=== PATIENT | male | born 1960 | race Caucasian/White ===

== ENCOUNTER 2022-05-18 10:50 | Inpatient (IN) | payer OTHER ==
[2022-05-18 13:40] VITALS: BMI 23.1
[2022-05-18] MEDS ORDERED: LOPERAMIDE HCL 2 MG CAPSULE PO PRN (14:24)
[2022-05-18] MEDS ORDERED: IBUPROFEN 600 MG TABLET (FP) PO PRN (14:24)
[2022-05-18] MEDS ORDERED: ACETAMINOPHEN 325 MG TABLET (FP) PO PRN ×2 (14:24)
[2022-05-18] MEDS ORDERED: BISMUTH SUBSALICYLATE 262 MG/15 ML BTL PO PRN (14:24)
[2022-05-18] MEDS ORDERED: IBUPROFEN 400 MG TABLET (FP) PO PRN (14:24)
[2022-05-18] MEDS ORDERED: MAGNESIUM HYDROX 2400MG/30ML ORAL SUSPENSION 30 ML CUP PO PRN (14:24)
[2022-05-18] MEDS ORDERED: METHOCARBAMOL 500 MG TABLET PO PRN (14:24)
[2022-05-18] MEDS ORDERED: MAG HYDROX/AL HYDROX/SIMETH 30 ML UNIT-DOSE CUP PO PRN (14:24)
[2022-05-18] MEDS ORDERED: DICYCLOMINE HCL 10 MG CAPSULE PO PRN (14:24)
[2022-05-18] MEDS ORDERED: chlordiazePOXIDE HCL 25 MG CAPSULE PO PRN (14:24)
[2022-05-18] MEDS ORDERED: ONDANSETRON *ODT* 4 MG TABLET SL PRN (14:24)
[2022-05-18] MEDS ORDERED: NICOTINE POLACRILEX 2 MG GUM BUC PRN (14:24)
[2022-05-18] MEDS ORDERED: MAGNESIUM CITRATE 300 ML BOTTLE PO PRN (14:24)
[2022-05-18] MEDS ORDERED: BENZOCAINE/MENTHOL (CHLORASEPTIC ) LOZENGE MM PRN (14:24)
[2022-05-18] MEDS: hydrOXYzine PAMOATE 25 MG CAPSULE (FP) PO SCH ×2 (18:19→22:28)
[2022-05-18] MEDS: THIAMINE HCL 100 MG TABLET (FP) PO SCH (22:28)
[2022-05-18] MEDS: MELATONIN 5 MG TABLETS PO SCH (22:28)
[2022-05-18] MEDS: chlordiazePOXIDE HCL 25 MG CAPSULE PO SCH (22:28)
[2022-05-18] MEDS: METOPROLOL TARTRATE 25 MG TABLET (FP) PO SCH (22:28)
[2022-05-18] MEDS: ROSUVASTATIN CA 20 MG TABLET PO SCH (22:28)
[2022-05-19] MEDS: hydrOXYzine PAMOATE 25 MG CAPSULE (FP) PO SCH ×5 (05:04→22:46)
[2022-05-19] MEDS: chlordiazePOXIDE HCL 25 MG CAPSULE PO SCH ×4 (05:04→22:46)
[2022-05-19] MEDS: METOPROLOL TARTRATE 25 MG TABLET (FP) PO SCH ×2 (10:15→22:46)
[2022-05-19] MEDS: ASPIRIN 81 MG CHEWABLE TABLETS PO SCH (10:15)
[2022-05-19] MEDS: PRENATAL VITAMINS W/ FOLIC ACID TABLET (FP) PO SCH (10:15)
[2022-05-19] MEDS: MELATONIN 5 MG TABLETS PO SCH (22:45)
[2022-05-19] MEDS: THIAMINE HCL 100 MG TABLET (FP) PO SCH (22:46)
[2022-05-19] MEDS: ROSUVASTATIN CA 20 MG TABLET PO SCH (22:46)
[2022-05-20] MEDS: hydrOXYzine PAMOATE 25 MG CAPSULE (FP) PO SCH ×3 (06:07→13:39)
[2022-05-20] MEDS: chlordiazePOXIDE HCL 25 MG CAPSULE PO SCH ×2 (06:07→10:35)
[2022-05-20] MEDS: PRENATAL VITAMINS W/ FOLIC ACID TABLET (FP) PO SCH (10:33)
[2022-05-20] MEDS: ASPIRIN 81 MG CHEWABLE TABLETS PO SCH (10:33)
[2022-05-20] MEDS: METOPROLOL TARTRATE 25 MG TABLET (FP) PO SCH (10:34)
[2022-05-20 11:12] LABS: HEMATOCRIT 36.3 % (35.4-49); HEMOGLOBIN 12.4 GM/dL (11.7-16.9); MCH 34.4 pg (25.7-33.7); MCHC 34.2 g/dl (32.0-35.9); MEAN CELL VOLUME 100.5 fl (80-96); MEAN PLT VOLUME 9.5 fl (7.5-11.1); PLATELET COUNT 128 10^3/uL (134-434); RBC 3.62 M/mm3 (4.00-5.60); RDW 13.9 % (11.9-15.9); WHITE BLOOD COUNT 4.5 K/mm3 (4.0-10.0)
[2022-05-20 11:52] LABS: CALCIUM 9.4 mg/dL (8.5-10.1)
[2022-05-20 11:53] LABS: ALBUMIN 3.5 g/dl (3.4-5.0); BLOOD UREA NITROGEN 13.6 mg/dL (7-18)
[2022-05-20 11:57] LABS: BILIRUBIN,TOTAL 0.8 mg/dL (0.2-1); CREATININE 0.8 mg/dL (0.55-1.3)
[2022-05-20 11:58] LABS: TOT PROT 6.7 g/dl (6.4-8.2)
[2022-05-20] MEDS ORDERED: POTASSIUM CHLORIDE ORAL LIQUID 20 MEQ/15 ML PO ONE (14:00)
[2022-05-20 17:13] VITALS: BP 114/70; PULSE 57; TEMP 98
[2022-05-20] MEDS ORDERED: POTASSIUM CHLORIDE ORAL LIQUID 20 MEQ/15 ML PO SCH (22:00)
[2022-05-21] MEDS ORDERED: chlordiazePOXIDE HCL 10 MG CAPSULE PO PRN
[2022-05-21] MEDS ORDERED: chlordiazePOXIDE HCL 10 MG CAPSULE PO SCH (05:00)
[2022-05-22] MEDS ORDERED: chlordiazePOXIDE HCL 10 MG CAPSULE PO SCH (05:00)
[2022-05-23] MEDS ORDERED: chlordiazePOXIDE HCL 10 MG CAPSULE PO ONE (05:00)
== END 2022-05-20 18:30 | disposition left against medical advice (07) | DRG 894 ==
LOC: YASAS 10:50 → Y3N 14:19
PROVIDERS: ADMIT Allergy & Immunology; ATTEND Surgery
PROC: HZ2ZZZZ Detoxification Services for Substance Abuse Treatment (ICD-10-PCS; principal; 2022-05-18)
DX: F10.230 Alcohol dependence with withdrawal, uncomplicated (principal); F12.10 Cannabis abuse, uncomplicated; F17.210 Nicotine dependence, cigarettes, uncomplicated; E87.6 Hypokalemia; E78.5 Hyperlipidemia, unspecified; I10 Essential (primary) hypertension; Z86.79 Personal history of other diseases of the circulatory system; Z86.73 Personal history of transient ischemic attack (TIA), and cerebral infarction without residual deficits; Z95.0 Presence of cardiac pacemaker; Z88.5 Allergy status to narcotic agent
CPT/HCPCS: 36415; 80053; 85027; 86780; C9803-CS; U0003; U0005

== ENCOUNTER 2022-07-20 15:30 | Inpatient (IN) | payer OTHER ==
[2022-07-20 18:17] VITALS: RESP 18; BMI 21.9
[2022-07-20] MEDS ORDERED: ONDANSETRON *ODT* 4 MG TABLET SL PRN (20:20)
[2022-07-20] MEDS ORDERED: P-EPHED 60MG/TRIPROLIDI 2.5MG TABLET PO PRN (20:20)
[2022-07-20] MEDS ORDERED: ACETAMINOPHEN 325 MG TABLET (FP) PO PRN ×2 (20:20)
[2022-07-20] MEDS ORDERED: DICYCLOMINE HCL 10 MG CAPSULE PO PRN (20:20)
[2022-07-20] MEDS ORDERED: LOPERAMIDE HCL 2 MG CAPSULE PO PRN (20:20)
[2022-07-20] MEDS ORDERED: IBUPROFEN 400 MG TABLET (FP) PO PRN (20:20)
[2022-07-20] MEDS ORDERED: MAG HYDROX/AL HYDROX/SIMETH 30 ML UNIT-DOSE CUP PO PRN (20:20)
[2022-07-20] MEDS ORDERED: IBUPROFEN 600 MG TABLET (FP) PO PRN (20:20)
[2022-07-20] MEDS ORDERED: MELATONIN 5 MG TABLETS PO PRN (20:20)
[2022-07-20] MEDS ORDERED: BISMUTH SUBSALICYLATE 524 MG/30 ML PO PRN (20:20)
[2022-07-20] MEDS ORDERED: MAGNESIUM HYDROX 2400MG/30ML ORAL SUSPENSION 30 ML CUP PO PRN (20:20)
[2022-07-20] MEDS ORDERED: guaiFENesin 200 MG/10 ML 10 ML UNIT-DOSE CUPS PO PRN (20:20)
[2022-07-20] MEDS ORDERED: MAGNESIUM CITRATE 300 ML BOTTLE PO PRN (20:20)
[2022-07-20] MEDS ORDERED: BENZOCAINE/MENTHOL (CHLORASEPTIC ) LOZENGE MM PRN (20:20)
[2022-07-20] MEDS ORDERED: chlordiazePOXIDE HCL 25 MG CAPSULE PO PRN (20:25)
[2022-07-20] MEDS: THIAMINE HCL 100 MG TABLET (FP) PO SCH (21:44)
[2022-07-20] MEDS: ASPIRIN 81 MG CHEWABLE TABLETS PO SCH (21:45)
[2022-07-20] MEDS: hydrOXYzine PAMOATE 25 MG CAPSULE (FP) PO PRN (21:46)
[2022-07-20] MEDS: BACITRACIN 0.9 GM PACKET TP SCH (21:49)
[2022-07-20] MEDS: METHOCARBAMOL 500 MG TABLET PO PRN (22:33)
[2022-07-20] MEDS: chlordiazePOXIDE HCL 25 MG CAPSULE PO SCH (23:03)
[2022-07-21] MEDS: chlordiazePOXIDE HCL 25 MG CAPSULE PO SCH ×4 (05:56→22:38)
[2022-07-21] MEDS: ASPIRIN 81 MG CHEWABLE TABLETS PO SCH (10:26)
[2022-07-21] MEDS: BACITRACIN 0.9 GM PACKET TP SCH ×2 (10:26→22:37)
[2022-07-21] MEDS: PRENATAL VITAMINS W/ FOLIC ACID TABLET (FP) PO SCH (10:26)
[2022-07-21 11:20] LABS: HEMATOCRIT 35.9 % (35.4-49); HEMOGLOBIN 11.8 GM/dL (11.7-16.9); MCH 32.9 pg (25.7-33.7); MCHC 32.9 g/dl (32.0-35.9); MEAN CELL VOLUME 99.8 fl (80-96); PLATELET COUNT 115 10^3/uL (134-434); RBC 3.59 M/mm3 (4.00-5.60)
[2022-07-21 11:59] LABS: BLOOD UREA NITROGEN 14.8 mg/dL (7-18)
[2022-07-21 12:00] LABS: CALCIUM 9.2 mg/dL (8.5-10.1)
[2022-07-21 12:01] LABS: ALBUMIN 3.2 g/dl (3.4-5.0)
[2022-07-21 12:04] LABS: CREATININE 0.7 mg/dL (0.55-1.3)
[2022-07-21 12:06] LABS: BILIRUBIN,TOTAL 0.6 mg/dL (0.2-1); TOT PROT 6.3 g/dl (6.4-8.2)
[2022-07-21] MEDS: NICOTINE POLACRILEX 2 MG GUM BUC PRN (18:06)
[2022-07-21] MEDS: METHOCARBAMOL 500 MG TABLET PO PRN (22:37)
[2022-07-21] MEDS: THIAMINE HCL 100 MG TABLET (FP) PO SCH (22:40)
[2022-07-22] MEDS ORDERED: chlordiazePOXIDE HCL 25 MG CAPSULE PO SCH (05:00)
[2022-07-22] MEDS ORDERED: chlordiazePOXIDE HCL 10 MG CAPSULE PO SCH (05:59)
[2022-07-22] MEDS: chlordiazePOXIDE HCL 10 MG CAPSULE PO SCH ×2 (06:10→10:24)
[2022-07-22] MEDS: hydrOXYzine PAMOATE 25 MG CAPSULE (FP) PO PRN (06:10)
[2022-07-22] MEDS: ASPIRIN 81 MG CHEWABLE TABLETS PO SCH (10:24)
[2022-07-22] MEDS: BACITRACIN 0.9 GM PACKET TP SCH (10:25)
[2022-07-22] MEDS: PRENATAL VITAMINS W/ FOLIC ACID TABLET (FP) PO SCH (10:25)
[2022-07-22 13:04] VITALS: BP 118/72; PULSE 57; TEMP 96.9
[2022-07-22] MEDS: NICOTINE POLACRILEX 2 MG GUM BUC PRN (14:37)
[2022-07-23] MEDS ORDERED: chlordiazePOXIDE HCL 10 MG CAPSULE PO PRN
[2022-07-23] MEDS ORDERED: chlordiazePOXIDE HCL 10 MG CAPSULE PO SCH (05:00)
[2022-07-24] MEDS ORDERED: chlordiazePOXIDE HCL 10 MG CAPSULE PO ONE (05:00)
== END 2022-07-22 03:20 | disposition left against medical advice (07) | DRG 894 ==
LOC: YASAS 15:30 → Y3N 20:20
PROVIDERS: ADMIT Allergy & Immunology; ATTEND Surgery
PROC: HZ2ZZZZ Detoxification Services for Substance Abuse Treatment (ICD-10-PCS; principal; 2022-07-20)
DX: F10.230 Alcohol dependence with withdrawal, uncomplicated (principal); F12.10 Cannabis abuse, uncomplicated; F17.210 Nicotine dependence, cigarettes, uncomplicated; E78.5 Hyperlipidemia, unspecified; I48.91 Unspecified atrial fibrillation; I10 Essential (primary) hypertension; Z95.0 Presence of cardiac pacemaker; Z86.73 Personal history of transient ischemic attack (TIA), and cerebral infarction without residual deficits; Z88.5 Allergy status to narcotic agent
CPT/HCPCS: 36415; 80053; 85027; 86780; C9803-CS; U0003; U0005

== ENCOUNTER 2022-07-28 16:44 | Inpatient (IN) | payer OTHER ==
[2022-07-28 21:55] VITALS: BMI 23.0
[2022-07-29] MEDS ORDERED: ACETAMINOPHEN 325 MG TABLET (FP) PO PRN (09:13)
[2022-07-29] MEDS ORDERED: MAG HYDROX/AL HYDROX/SIMETH 30 ML UNIT-DOSE CUP PO PRN (09:13)
[2022-07-29] MEDS ORDERED: guaiFENesin 200 MG/10 ML 10 ML UNIT-DOSE CUPS PO PRN (09:13)
[2022-07-29] MEDS ORDERED: MAGNESIUM CITRATE 300 ML BOTTLE PO PRN (09:13)
[2022-07-29] MEDS ORDERED: MAGNESIUM HYDROX 2400MG/30ML ORAL SUSPENSION 30 ML CUP PO PRN (09:13)
[2022-07-29] MEDS ORDERED: LOPERAMIDE HCL 2 MG CAPSULE PO PRN (09:13)
[2022-07-29] MEDS ORDERED: P-EPHED 60MG/TRIPROLIDI 2.5MG TABLET PO PRN (09:13)
[2022-07-29] MEDS ORDERED: IBUPROFEN 400 MG TABLET (FP) PO ONE (09:46)
[2022-07-29] MEDS: IBUPROFEN 400 MG TABLET (FP) PO PRN ×2 (09:47→21:07)
[2022-07-29] MEDS ORDERED: ASPIRIN 81 MG CHEWABLE TABLETS PO SCH (10:00)
[2022-07-29] MEDS: NICOTINE 10 MG CARTRIDGE (INHALER) IH PRN (12:29)
[2022-07-29] MEDS: NICOTINE 7 MG/24 HOURS TOPICAL PATCH TD SCH (12:29)
[2022-07-29] MEDS: PRENATAL VITAMINS W/ FOLIC ACID TABLET (FP) PO SCH (12:29)
[2022-07-29] MEDS: hydrOXYzine PAMOATE 25 MG CAPSULE (FP) PO SCH ×2 (12:29→13:53)
[2022-07-29 15:00] LABS: HEMATOCRIT 36.2 % (35.4-49); MEAN CELL VOLUME 99.9 fl (80-96); MEAN PLT VOLUME 9.3 fl (7.5-11.1); PLATELET COUNT 212 10^3/uL (134-434); RBC 3.62 M/mm3 (4.00-5.60); RDW 14.4 % (11.9-15.9); WHITE BLOOD COUNT 8.9 K/mm3 (4.0-10.0)
[2022-07-29 15:08] LABS: ALBUMIN 3.3 g/dl (3.4-5.0); BLOOD UREA NITROGEN 11.5 mg/dL (7-18); CALCIUM 8.9 mg/dL (8.5-10.1)
[2022-07-29 15:11] LABS: CREATININE 0.7 mg/dL (0.55-1.3)
[2022-07-29 15:13] LABS: BILIRUBIN,TOTAL 0.6 mg/dL (0.2-1); TOT PROT 6.8 g/dl (6.4-8.2)
[2022-07-29 15:38] LABS: SYPHILIS W/ RPR CONF NON-REACTIVE (NONREACTIVE)
[2022-07-29] MEDS ORDERED: TUBERCULIN PPD 5 TU/0.1ML VIAL ID ONE (16:59)
[2022-07-29] MEDS: ATORVASTATIN CA 20 MG TABLET (FP) PO SCH (21:06)
[2022-07-29] MEDS: BACITRACIN 0.9 GM PACKET TP SCH (21:06)
[2022-07-29] MEDS: MELATONIN 5 MG TABLETS PO SCH (21:06)
[2022-07-29] MEDS: THIAMINE HCL 100 MG TABLET (FP) PO SCH (21:06)
[2022-07-30] MEDS: NICOTINE 7 MG/24 HOURS TOPICAL PATCH TD SCH (09:50)
[2022-07-30] MEDS: BACITRACIN 0.9 GM PACKET TP SCH ×2 (09:50→21:15)
[2022-07-30] MEDS: PRENATAL VITAMINS W/ FOLIC ACID TABLET (FP) PO SCH (09:50)
[2022-07-30] MEDS: IBUPROFEN 400 MG TABLET (FP) PO PRN (14:42)
[2022-07-30 16:17] LABS: URINE APPEARANCE CLEAR; URINE BILIRUBIN NEGATIVE (NEGATIVE); URINE COLOR YELLOW; URINE GLUCOSE (UA) NEGATIVE (NEGATIVE); URINE KETONE NEGATIVE (NEGATIVE); URINE LEUK ESTERASE NEGATIVE (NEGATIVE); URINE NITRITE NEGATIVE (NEGATIVE); URINE PROTEIN NEGATIVE (NEGATIVE); URINE UROBILINOGEN 0.2 mg/dL (0.2-1.0)
[2022-07-30] MEDS: ATORVASTATIN CA 20 MG TABLET (FP) PO SCH (21:15)
[2022-07-30] MEDS: THIAMINE HCL 100 MG TABLET (FP) PO SCH (21:15)
[2022-07-30] MEDS: MELATONIN 5 MG TABLETS PO SCH (21:15)
[2022-07-30] MEDS: hydrOXYzine PAMOATE 25 MG CAPSULE (FP) PO PRN (21:15)
[2022-07-30] MEDS: ASPIRIN 81 MG CHEWABLE TABLETS PO SCH (21:16)
[2022-07-31] MEDS: IBUPROFEN 400 MG TABLET (FP) PO PRN (06:13)
[2022-07-31] MEDS: BACITRACIN 0.9 GM PACKET TP SCH ×3 (10:12→21:53)
[2022-07-31] MEDS: NICOTINE 7 MG/24 HOURS TOPICAL PATCH TD SCH (10:13)
[2022-07-31] MEDS: PRENATAL VITAMINS W/ FOLIC ACID TABLET (FP) PO SCH (10:13)
[2022-07-31] MEDS: METOPROLOL TARTRATE 25 MG TABLET (FP) PO SCH ×2 (11:52→21:32)
[2022-07-31] MEDS: ATORVASTATIN CA 20 MG TABLET (FP) PO SCH (21:28)
[2022-07-31] MEDS: ASPIRIN 81 MG CHEWABLE TABLETS PO SCH (21:28)
[2022-07-31] MEDS: MELATONIN 5 MG TABLETS PO SCH (21:30)
[2022-07-31] MEDS: THIAMINE HCL 100 MG TABLET (FP) PO SCH (21:30)
[2022-08-01] MEDS: PRENATAL VITAMINS W/ FOLIC ACID TABLET (FP) PO SCH (10:32)
[2022-08-01] MEDS: BACITRACIN 0.9 GM PACKET TP SCH ×4 (10:34→21:45)
[2022-08-01] MEDS: NICOTINE 7 MG/24 HOURS TOPICAL PATCH TD SCH (10:34)
[2022-08-01] MEDS: METOPROLOL TARTRATE 25 MG TABLET (FP) PO SCH ×2 (10:34→21:44)
[2022-08-01] MEDS: ATORVASTATIN CA 20 MG TABLET (FP) PO SCH (21:44)
[2022-08-01] MEDS: ASPIRIN 81 MG CHEWABLE TABLETS PO SCH (21:44)
[2022-08-01] MEDS: MELATONIN 5 MG TABLETS PO SCH (21:45)
[2022-08-02] MEDS: IBUPROFEN 400 MG TABLET (FP) PO PRN ×2 (06:36→16:58)
[2022-08-02] MEDS: PRENATAL VITAMINS W/ FOLIC ACID TABLET (FP) PO SCH (10:15)
[2022-08-02] MEDS: THIAMINE HCL 100 MG TABLET (FP) PO SCH (10:15)
[2022-08-02] MEDS: NICOTINE 7 MG/24 HOURS TOPICAL PATCH TD SCH (10:16)
[2022-08-02] MEDS: METOPROLOL TARTRATE 25 MG TABLET (FP) PO SCH ×2 (10:17→21:14)
[2022-08-02] MEDS: BACITRACIN 0.9 GM PACKET TP SCH ×4 (10:17→21:16)
[2022-08-02] MEDS: ATORVASTATIN CA 20 MG TABLET (FP) PO SCH (21:14)
[2022-08-02] MEDS: MELATONIN 5 MG TABLETS PO SCH (21:16)
[2022-08-02] MEDS: ASPIRIN 81 MG CHEWABLE TABLETS PO SCH (21:16)
[2022-08-03] MEDS: PRENATAL VITAMINS W/ FOLIC ACID TABLET (FP) PO SCH (10:25)
[2022-08-03] MEDS: NICOTINE 7 MG/24 HOURS TOPICAL PATCH TD SCH (10:25)
[2022-08-03] MEDS: BACITRACIN 0.9 GM PACKET TP SCH ×4 (10:25→21:09)
[2022-08-03] MEDS: METOPROLOL TARTRATE 25 MG TABLET (FP) PO SCH ×3 (10:34→21:10)
[2022-08-03] MEDS: THIAMINE HCL 100 MG TABLET (FP) PO SCH (10:35)
[2022-08-03 20:57] VITALS: RESP 18
[2022-08-03] MEDS: MELATONIN 5 MG TABLETS PO SCH (21:08)
[2022-08-03] MEDS: ATORVASTATIN CA 20 MG TABLET (FP) PO SCH (21:08)
[2022-08-03] MEDS: ASPIRIN 81 MG CHEWABLE TABLETS PO SCH (21:08)
[2022-08-04] MEDS: IBUPROFEN 400 MG TABLET (FP) PO PRN (06:16)
[2022-08-04] MEDS: BACITRACIN 0.9 GM PACKET TP SCH ×3 (13:58→21:31)
[2022-08-04] MEDS: NICOTINE 7 MG/24 HOURS TOPICAL PATCH TD SCH (13:59)
[2022-08-04] MEDS: METOPROLOL TARTRATE 25 MG TABLET (FP) PO SCH ×2 (13:59→21:30)
[2022-08-04] MEDS: PRENATAL VITAMINS W/ FOLIC ACID TABLET (FP) PO SCH (14:03)
[2022-08-04] MEDS: THIAMINE HCL 100 MG TABLET (FP) PO SCH (14:03)
[2022-08-04] MEDS: ASPIRIN 81 MG CHEWABLE TABLETS PO SCH (21:29)
[2022-08-04] MEDS: ATORVASTATIN CA 20 MG TABLET (FP) PO SCH (21:29)
[2022-08-04] MEDS: MELATONIN 5 MG TABLETS PO SCH (21:29)
[2022-08-04] MEDS: SILVER SULFADIAZINE 1% TOP CREAM 50 GM JAR TP SCH (21:31)
[2022-08-05] MEDS: METOPROLOL TARTRATE 25 MG TABLET (FP) PO SCH ×2 (10:27→21:16)
[2022-08-05] MEDS: BACITRACIN 0.9 GM PACKET TP SCH ×2 (10:27→21:15)
[2022-08-05] MEDS: PRENATAL VITAMINS W/ FOLIC ACID TABLET (FP) PO SCH (10:27)
[2022-08-05] MEDS: NICOTINE 10 MG CARTRIDGE (INHALER) IH PRN (10:28)
[2022-08-05] MEDS: NICOTINE 7 MG/24 HOURS TOPICAL PATCH TD SCH (10:28)
[2022-08-05] MEDS: THIAMINE HCL 100 MG TABLET (FP) PO SCH (10:30)
[2022-08-05] MEDS: SILVER SULFADIAZINE 1% TOP CREAM 50 GM JAR TP SCH ×2 (10:30→21:15)
[2022-08-05] MEDS: IBUPROFEN 400 MG TABLET (FP) PO PRN (18:38)
[2022-08-05] MEDS: ASPIRIN 81 MG CHEWABLE TABLETS PO SCH (21:15)
[2022-08-05] MEDS: MELATONIN 5 MG TABLETS PO SCH (21:15)
[2022-08-05] MEDS: ATORVASTATIN CA 20 MG TABLET (FP) PO SCH (21:15)
[2022-08-06] MEDS: IBUPROFEN 400 MG TABLET (FP) PO PRN ×2 (07:10→23:14)
[2022-08-06] MEDS: hydrOXYzine PAMOATE 25 MG CAPSULE (FP) PO PRN (07:10)
[2022-08-06] MEDS: PRENATAL VITAMINS W/ FOLIC ACID TABLET (FP) PO SCH (09:59)
[2022-08-06] MEDS: THIAMINE HCL 100 MG TABLET (FP) PO SCH (09:59)
[2022-08-06] MEDS: BACITRACIN 0.9 GM PACKET TP SCH ×2 (10:01→21:24)
[2022-08-06] MEDS: NICOTINE 7 MG/24 HOURS TOPICAL PATCH TD SCH (10:01)
[2022-08-06] MEDS: SILVER SULFADIAZINE 1% TOP CREAM 50 GM JAR TP SCH ×3 (10:01→21:27)
[2022-08-06] MEDS: ATORVASTATIN CA 20 MG TABLET (FP) PO SCH (21:24)
[2022-08-06] MEDS: MELATONIN 5 MG TABLETS PO SCH (21:24)
[2022-08-06] MEDS: ASPIRIN 81 MG CHEWABLE TABLETS PO SCH (21:24)
[2022-08-07] MEDS: PRENATAL VITAMINS W/ FOLIC ACID TABLET (FP) PO SCH (10:09)
[2022-08-07] MEDS: BACITRACIN 0.9 GM PACKET TP SCH ×2 (10:10→21:29)
[2022-08-07] MEDS: SILVER SULFADIAZINE 1% TOP CREAM 50 GM JAR TP SCH ×2 (10:10→21:30)
[2022-08-07] MEDS: THIAMINE HCL 100 MG TABLET (FP) PO SCH (10:10)
[2022-08-07] MEDS: NICOTINE 7 MG/24 HOURS TOPICAL PATCH TD SCH (10:10)
[2022-08-07] MEDS: MELATONIN 5 MG TABLETS PO SCH (21:20)
[2022-08-07] MEDS: ASPIRIN 81 MG CHEWABLE TABLETS PO SCH (21:20)
[2022-08-07] MEDS: IBUPROFEN 400 MG TABLET (FP) PO PRN (21:21)
[2022-08-07] MEDS: ATORVASTATIN CA 20 MG TABLET (FP) PO SCH (21:21)
[2022-08-08 07:39] VITALS: TEMP 97.3
[2022-08-08] MEDS: SILVER SULFADIAZINE 1% TOP CREAM 50 GM JAR TP SCH ×2 (10:05→21:11)
[2022-08-08] MEDS: PRENATAL VITAMINS W/ FOLIC ACID TABLET (FP) PO SCH (10:05)
[2022-08-08] MEDS: BACITRACIN 0.9 GM PACKET TP SCH ×2 (10:05→21:10)
[2022-08-08] MEDS: NICOTINE 7 MG/24 HOURS TOPICAL PATCH TD SCH (10:05)
[2022-08-08] MEDS: THIAMINE HCL 100 MG TABLET (FP) PO SCH (10:05)
[2022-08-08] MEDS: ASPIRIN 81 MG CHEWABLE TABLETS PO SCH (21:10)
[2022-08-08] MEDS: MELATONIN 5 MG TABLETS PO SCH (21:10)
[2022-08-08] MEDS: ATORVASTATIN CA 20 MG TABLET (FP) PO SCH (21:10)
[2022-08-08] MEDS: hydrOXYzine PAMOATE 25 MG CAPSULE (FP) PO PRN (23:39)
[2022-08-09] MEDS: IBUPROFEN 400 MG TABLET (FP) PO PRN (06:15)
[2022-08-09 07:40] VITALS: BP 129/74; PULSE 50
[2022-08-09] MEDS: PRENATAL VITAMINS W/ FOLIC ACID TABLET (FP) PO SCH (10:40)
[2022-08-09] MEDS: NICOTINE 7 MG/24 HOURS TOPICAL PATCH TD SCH (10:41)
[2022-08-09] MEDS: BACITRACIN 0.9 GM PACKET TP SCH (10:41)
[2022-08-09] MEDS: THIAMINE HCL 100 MG TABLET (FP) PO SCH (10:41)
[2022-08-09] MEDS: SILVER SULFADIAZINE 1% TOP CREAM 50 GM JAR TP SCH (10:42)
== END 2022-08-09 12:50 | disposition home or self-care (01) | DRG 895 ==
LOC: YASAS 16:44 → Y3E 07-29 11:47 → Y3W 08-04 08:55
PROVIDERS: ADMIT Allergy & Immunology; ATTEND Psychiatry & Neurology Pain Medicine
PROC: HZ42ZZZ Group Counseling for Substance Abuse Treatment, Cognitive-Behavioral (ICD-10-PCS; principal; 2022-07-29)
DX: F10.20 Alcohol dependence, uncomplicated (principal); F17.210 Nicotine dependence, cigarettes, uncomplicated; F10.282 Alcohol dependence with alcohol-induced sleep disorder; F10.24 Alcohol dependence with alcohol-induced mood disorder; D64.9 Anemia, unspecified; E78.5 Hyperlipidemia, unspecified; I48.91 Unspecified atrial fibrillation; I10 Essential (primary) hypertension; R07.81 Pleurodynia; S60.423A Blister (nonthermal) of left middle finger, initial encounter; S60.424A Blister (nonthermal) of right ring finger, initial encounter; S60.454A Superficial foreign body of right ring finger, initial encounter; W19.XXXA Unspecified fall, initial encounter; Y92.488 Other paved roadways as the place of occurrence of the external cause; Z95.0 Presence of cardiac pacemaker; Z59.01 Sheltered homelessness
CPT/HCPCS: 36415; 80053; 81003; 82962; 83036; 85027; 86780; 86803; C9803-CS; U0003; U0005

== ENCOUNTER 2022-08-21 16:37 | Inpatient (IN) | payer OTHER ==
[2022-08-21 18:10] VITALS: BMI 21.9
[2022-08-21] MEDS ORDERED: METOPROLOL TARTRATE 25 MG TABLET (FP) PO ONE (18:48)
[2022-08-21] MEDS ORDERED: MAG HYDROX/AL HYDROX/SIMETH 30 ML UNIT-DOSE CUP PO PRN (19:02)
[2022-08-21] MEDS ORDERED: BISMUTH SUBSALICYLATE 524 MG/30 ML PO PRN (19:02)
[2022-08-21] MEDS ORDERED: DICYCLOMINE HCL 10 MG CAPSULE PO PRN (19:02)
[2022-08-21] MEDS ORDERED: IBUPROFEN 400 MG TABLET (FP) PO PRN (19:02)
[2022-08-21] MEDS ORDERED: BENZOCAINE/MENTHOL (CHLORASEPTIC ) LOZENGE MM PRN (19:02)
[2022-08-21] MEDS ORDERED: ONDANSETRON *ODT* 4 MG TABLET SL PRN (19:02)
[2022-08-21] MEDS ORDERED: guaiFENesin 200 MG/10 ML 10 ML UNIT-DOSE CUPS PO PRN (19:02)
[2022-08-21] MEDS ORDERED: LOPERAMIDE HCL 2 MG CAPSULE PO PRN (19:02)
[2022-08-21] MEDS ORDERED: P-EPHED 60MG/TRIPROLIDI 2.5MG TABLET PO PRN (19:02)
[2022-08-21] MEDS ORDERED: ACETAMINOPHEN 325 MG TABLET (FP) PO PRN ×2 (19:02)
[2022-08-21] MEDS ORDERED: MAGNESIUM CITRATE 300 ML BOTTLE PO PRN (19:02)
[2022-08-21] MEDS ORDERED: NICOTINE 10 MG CARTRIDGE (INHALER) IH PRN (19:02)
[2022-08-21] MEDS ORDERED: MAGNESIUM HYDROX 2400MG/30ML ORAL SUSPENSION 30 ML CUP PO PRN (19:02)
[2022-08-21] MEDS ORDERED: chlordiazePOXIDE HCL 25 MG CAPSULE PO ONE (19:04)
[2022-08-21] MEDS ORDERED: chlordiazePOXIDE HCL 25 MG CAPSULE PO PRN (19:04)
[2022-08-21] MEDS ORDERED: METOPROLOL TARTRATE 25 MG TABLET (FP) ONE (19:27)
[2022-08-21] MEDS ORDERED: ASPIRIN 81 MG CHEWABLE TABLETS ONE (19:28)
[2022-08-21] MEDS ORDERED: IBUPROFEN 400 MG TABLET (FP) PO ONE (19:32)
[2022-08-21] MEDS: ASPIRIN 81 MG CHEWABLE TABLETS PO SCH (19:39)
[2022-08-21] MEDS ORDERED: chlordiazePOXIDE HCL 25 MG CAPSULE ONE (22:16)
[2022-08-21] MEDS: chlordiazePOXIDE HCL 25 MG CAPSULE PO SCH (22:20)
[2022-08-21] MEDS: THIAMINE HCL 100 MG TABLET (FP) PO SCH (22:20)
[2022-08-22] MEDS ORDERED: chlordiazePOXIDE HCL 25 MG CAPSULE ONE ×2 (05:17→11:10)
[2022-08-22] MEDS ORDERED: ASPIRIN 81 MG CHEWABLE TABLETS ONE (11:10)
[2022-08-22] MEDS ORDERED: METOPROLOL TARTRATE 25 MG TABLET (FP) ONE (11:10)
[2022-08-22] MEDS: ASPIRIN 81 MG CHEWABLE TABLETS PO SCH (11:17)
[2022-08-22] MEDS: chlordiazePOXIDE HCL 25 MG CAPSULE PO SCH ×3 (11:17→23:01)
[2022-08-22] MEDS: PRENATAL VITAMINS W/ FOLIC ACID TABLET (FP) PO SCH (11:18)
[2022-08-22] MEDS: METOPROLOL TARTRATE 25 MG TABLET (FP) PO SCH ×2 (11:18→23:01)
[2022-08-22 12:21] LABS: CALCIUM 8.9 mg/dL (8.5-10.1)
[2022-08-22 12:22] LABS: ALBUMIN 3.6 g/dl (3.4-5.0); BLOOD UREA NITROGEN 10.1 mg/dL (7-18)
[2022-08-22 12:23] LABS: HEMATOCRIT 37.6 % (35.4-49); HEMOGLOBIN 12.6 GM/dL (11.7-16.9); MCH 32.5 pg (25.7-33.7); MCHC 33.4 g/dl (32.0-35.9); MEAN CELL VOLUME 97.3 fl (80-96); MEAN PLT VOLUME 10.1 fl (7.5-11.1); PLATELET COUNT 93 10^3/uL (134-434); RBC 3.86 M/mm3 (4.00-5.60); RDW 14.2 % (11.9-15.9); WHITE BLOOD COUNT 6.2 K/mm3 (4.0-10.0)
[2022-08-22 12:25] LABS: CREATININE 0.7 mg/dL (0.55-1.3)
[2022-08-22 12:27] LABS: BILIRUBIN,TOTAL 1.2 mg/dL (0.2-1); TOT PROT 7.2 g/dl (6.4-8.2)
[2022-08-22] MEDS: hydrOXYzine PAMOATE 25 MG CAPSULE (FP) PO PRN ×2 (18:04→23:00)
[2022-08-22] MEDS: METHOCARBAMOL 500 MG TABLET PO PRN (18:04)
[2022-08-22] MEDS: THIAMINE HCL 100 MG TABLET (FP) PO SCH (23:00)
[2022-08-22] MEDS: MELATONIN 5 MG TABLETS PO PRN (23:00)
[2022-08-22] MEDS: ATORVASTATIN CA 20 MG TABLET (FP) PO SCH (23:01)
[2022-08-23] MEDS: chlordiazePOXIDE HCL 25 MG CAPSULE PO SCH ×4 (05:42→22:15)
[2022-08-23] MEDS: ASPIRIN 81 MG CHEWABLE TABLETS PO SCH (10:46)
[2022-08-23] MEDS: PRENATAL VITAMINS W/ FOLIC ACID TABLET (FP) PO SCH (10:46)
[2022-08-23] MEDS: IBUPROFEN 600 MG TABLET (FP) PO PRN (10:46)
[2022-08-23] MEDS: METOPROLOL TARTRATE 25 MG TABLET (FP) PO SCH ×2 (10:49→22:15)
[2022-08-23] MEDS: hydrOXYzine PAMOATE 25 MG CAPSULE (FP) PO PRN ×2 (17:47→22:15)
[2022-08-23] MEDS: THIAMINE HCL 100 MG TABLET (FP) PO SCH (22:15)
[2022-08-23] MEDS: ATORVASTATIN CA 20 MG TABLET (FP) PO SCH (22:15)
[2022-08-23] MEDS: MELATONIN 5 MG TABLETS PO PRN (22:15)
[2022-08-24] MEDS ORDERED: chlordiazePOXIDE HCL 10 MG CAPSULE PO PRN
[2022-08-24] MEDS: chlordiazePOXIDE HCL 10 MG CAPSULE PO SCH ×4 (05:40→22:08)
[2022-08-24] MEDS: METHOCARBAMOL 500 MG TABLET PO PRN (08:36)
[2022-08-24] MEDS: IBUPROFEN 600 MG TABLET (FP) PO PRN (08:36)
[2022-08-24] MEDS: chlordiazePOXIDE HCL 25 MG CAPSULE PO SCH (09:08)
[2022-08-24] MEDS: METOPROLOL TARTRATE 25 MG TABLET (FP) PO SCH ×2 (10:35→22:08)
[2022-08-24] MEDS: PRENATAL VITAMINS W/ FOLIC ACID TABLET (FP) PO SCH (10:35)
[2022-08-24] MEDS: ASPIRIN 81 MG CHEWABLE TABLETS PO SCH (10:35)
[2022-08-24] MEDS: THIAMINE HCL 100 MG TABLET (FP) PO SCH (22:07)
[2022-08-24] MEDS: MELATONIN 5 MG TABLETS PO PRN (22:07)
[2022-08-24] MEDS: ATORVASTATIN CA 20 MG TABLET (FP) PO SCH (22:08)
[2022-08-24] MEDS: hydrOXYzine PAMOATE 25 MG CAPSULE (FP) PO PRN (22:08)
[2022-08-25] MEDS: METHOCARBAMOL 500 MG TABLET PO PRN (02:44)
[2022-08-25] MEDS: IBUPROFEN 600 MG TABLET (FP) PO PRN (02:44)
[2022-08-25] MEDS: chlordiazePOXIDE HCL 10 MG CAPSULE PO SCH ×2 (06:04→18:25)
[2022-08-25] MEDS: PRENATAL VITAMINS W/ FOLIC ACID TABLET (FP) PO SCH (10:16)
[2022-08-25] MEDS: ASPIRIN 81 MG CHEWABLE TABLETS PO SCH (10:17)
[2022-08-25] MEDS: METOPROLOL TARTRATE 25 MG TABLET (FP) PO SCH (10:17)
[2022-08-25] MEDS ORDERED: chlordiazePOXIDE HCL 10 MG CAPSULE PO SCH (18:30)
[2022-08-25 21:54] VITALS: BP 124/68; PULSE 88; RESP 48; TEMP 97.3
[2022-08-25] MEDS ORDERED: chlordiazePOXIDE HCL 25 MG CAPSULE PO SCH (23:00)
[2022-08-26] MEDS ORDERED: chlordiazePOXIDE HCL 10 MG CAPSULE PO ONE (05:00)
== END 2022-08-25 20:30 | disposition left against medical advice (07) | DRG 894 ==
LOC: YASAS 16:37 → Y6N 08-22 11:35 → UNDODISIN 08-23 16:55 → Y6N 08-25
PROVIDERS: ADMIT Allergy & Immunology; ATTEND Surgery
PROC: HZ2ZZZZ Detoxification Services for Substance Abuse Treatment (ICD-10-PCS; principal; 2022-08-22)
DX: F10.230 Alcohol dependence with withdrawal, uncomplicated (principal); F17.210 Nicotine dependence, cigarettes, uncomplicated; I10 Essential (primary) hypertension; Z95.0 Presence of cardiac pacemaker; Z86.79 Personal history of other diseases of the circulatory system; Z88.5 Allergy status to narcotic agent; Z59.00 Homelessness unspecified
CPT/HCPCS: 36415; 80053; 85027; 86780; C9803-CS; U0003; U0005

== ENCOUNTER 2022-09-26 09:05 | Inpatient (IN) | payer OTHER ==
[2022-09-26 10:12] VITALS: BMI 23.7
[2022-09-26] MEDS ORDERED: hydrOXYzine PAMOATE 25 MG CAPSULE (FP) PO PRN (11:09)
[2022-09-26] MEDS ORDERED: ACETAMINOPHEN 325 MG TABLET (FP) PO PRN (11:09)
[2022-09-26] MEDS ORDERED: NICOTINE POLACRILEX 4 MG GUM BUC PRN (11:09)
[2022-09-26] MEDS ORDERED: guaiFENesin 200 MG/10 ML 10 ML UNIT-DOSE CUPS PO PRN (11:09)
[2022-09-26] MEDS ORDERED: P-EPHED 60MG/TRIPROLIDI 2.5MG TABLET PO PRN (11:09)
[2022-09-26] MEDS ORDERED: LOPERAMIDE HCL 2 MG CAPSULE PO PRN (11:09)
[2022-09-26] MEDS ORDERED: MAGNESIUM CITRATE 300 ML BOTTLE PO PRN (11:09)
[2022-09-26] MEDS ORDERED: MAGNESIUM HYDROX 2400MG/30ML ORAL SUSPENSION 30 ML CUP PO PRN (11:09)
[2022-09-26] MEDS ORDERED: MAG HYDROX/AL HYDROX/SIMETH 30 ML UNIT-DOSE CUP PO PRN (11:09)
[2022-09-26] MEDS ORDERED: LIDOCAINE 5% TOPICAL PATCH TP PRN (11:11)
[2022-09-26] MEDS ORDERED: BENZOYL PEROXIDE 5% 60 GM GEL..GRAM. TP ONE (11:13)
[2022-09-26] MEDS ORDERED: HYDROCORTISONE 1% TOPICAL OINT 30 GM TUBE TP PRN (12:58)
[2022-09-26] MEDS ORDERED: BENZOYL PEROXIDE 5% 60 GM GEL..GRAM. TP SCH (13:00)
[2022-09-26] MEDS ORDERED: HYDROCORTISONE 1% TOPICAL OINT 30 GM TUBE TP SCH (14:00)
[2022-09-26] MEDS: THIAMINE HCL 100 MG TABLET (FP) PO SCH (21:16)
[2022-09-26] MEDS: MELATONIN 5 MG TABLETS PO SCH (21:16)
[2022-09-26] MEDS: ATORVASTATIN CA 20 MG TABLET (FP) PO SCH (21:16)
[2022-09-26] MEDS: LIDOCAINE PATCH REMOVAL MC SCH (21:16)
[2022-09-26 22:17] LABS: PH,URINE 5.5 (5.0-8.0); URINE APPEARANCE TURBID; URINE BILIRUBIN NEGATIVE (NEGATIVE); URINE COLOR YELLOW; URINE GLUCOSE (UA) NEGATIVE (NEGATIVE); URINE KETONE NEGATIVE (NEGATIVE); URINE LEUK ESTERASE NEGATIVE (NEGATIVE); URINE NITRITE NEGATIVE (NEGATIVE); URINE PROTEIN NEGATIVE (NEGATIVE); URINE UROBILINOGEN 0.2 mg/dL (0.2-1.0)
[2022-09-27] MEDS: BENZOYL PEROXIDE 5% 60 GM GEL..GRAM. TP SCH (10:36)
[2022-09-27] MEDS: PRENATAL VITAMINS W/ FOLIC ACID TABLET (FP) PO SCH (10:36)
[2022-09-27] MEDS: ATORVASTATIN CA 20 MG TABLET (FP) PO SCH (21:11)
[2022-09-27] MEDS: THIAMINE HCL 100 MG TABLET (FP) PO SCH (21:11)
[2022-09-27] MEDS: MELATONIN 5 MG TABLETS PO SCH (21:12)
[2022-09-27] MEDS: LIDOCAINE PATCH REMOVAL MC SCH (21:12)
[2022-09-28 07:23] VITALS: BP 121/72; PULSE 60; RESP 17; TEMP 97.7
[2022-09-28 09:57] LABS: HEMATOCRIT 36.2 % (35.4-49); HEMOGLOBIN 12.2 GM/dL (11.7-16.9); MCHC 33.7 g/dl (32.0-35.9); MEAN CELL VOLUME 97.8 fl (80-96); MEAN PLT VOLUME 9.6 fl (7.5-11.1); PLATELET COUNT 175 10^3/uL (134-434); RDW 14.9 % (11.9-15.9); WHITE BLOOD COUNT 6.2 K/mm3 (4.0-10.0)
[2022-09-28 09:58] LABS: ALBUMIN 3.7 g/dl (3.4-5.0); BLOOD UREA NITROGEN 15.3 mg/dL (7-18); CALCIUM 9.8 mg/dL (8.5-10.1)
[2022-09-28 10:01] LABS: CREATININE 0.9 mg/dL (0.55-1.3)
[2022-09-28 10:03] LABS: BILIRUBIN,TOTAL 0.8 mg/dL (0.2-1); TOT PROT 7.6 g/dl (6.4-8.2)
[2022-09-28] MEDS: PRENATAL VITAMINS W/ FOLIC ACID TABLET (FP) PO SCH (10:20)
[2022-09-28 12:05] LABS: SYPHILIS W/ RPR CONF NON-REACTIVE (NONREACTIVE)
[2022-09-28] MEDS ORDERED: LACTULOSE 20 GM/30 ML UDC (FOR ORAL USE ONLY) PO SCH (14:00)
[2022-09-28] MEDS: BENZOYL PEROXIDE 5% 60 GM GEL..GRAM. TP SCH (14:20)
== END 2022-09-28 14:48 | disposition left against medical advice (07) | DRG 894 ==
LOC: YASAS 09:05 → Y3W 11:19
PROVIDERS: ADMIT Allergy & Immunology; ATTEND Psychiatry & Neurology Pain Medicine
PROC: HZ42ZZZ Group Counseling for Substance Abuse Treatment, Cognitive-Behavioral (ICD-10-PCS; principal; 2022-09-26)
DX: F10.20 Alcohol dependence, uncomplicated (principal); F17.210 Nicotine dependence, cigarettes, uncomplicated; E78.5 Hyperlipidemia, unspecified; L21.9 Seborrheic dermatitis, unspecified; L73.9 Follicular disorder, unspecified; R79.89 Other specified abnormal findings of blood chemistry; Z86.19 Personal history of other infectious and parasitic diseases; Z86.73 Personal history of transient ischemic attack (TIA), and cerebral infarction without residual deficits; Z86.2 Personal history of diseases of the blood and blood-forming organs and certain disorders involving the immune mechanism; Z95.0 Presence of cardiac pacemaker
CPT/HCPCS: 36415; 80053; 81003; 82140; 85027; 86780; 86803; C9803-CS; U0003; U0005

== ENCOUNTER 2023-01-01 13:15 | Inpatient (IN) | payer OTHER ==
[2023-01-01 13:33] VITALS: BMI 23.0
[2023-01-01] MEDS ORDERED: LOPERAMIDE HCL 2 MG CAPSULE PO PRN (15:49)
[2023-01-01] MEDS ORDERED: P-EPHED 60MG/TRIPROLIDI 2.5MG TABLET PO PRN (15:49)
[2023-01-01] MEDS ORDERED: POLYETHYLENE GLYCOL (HEALTHYLAX) 3350 17 GM PACKET PO PRN (15:49)
[2023-01-01] MEDS ORDERED: NALOXONE HCL 0.4 MG/ML VIAL IM PRN (15:49)
[2023-01-01] MEDS ORDERED: BENZOCAINE/MENTHOL (CHLORASEPTIC ) LOZENGE MM PRN (15:49)
[2023-01-01] MEDS ORDERED: IBUPROFEN 400 MG TABLET (FP) PO PRN (15:49)
[2023-01-01] MEDS ORDERED: guaiFENesin 200 MG/10 ML 10 ML UNIT-DOSE CUPS PO PRN (15:49)
[2023-01-01] MEDS ORDERED: MAGNESIUM HYDROX 2400MG/30ML ORAL SUSPENSION 30 ML CUP PO PRN (15:49)
[2023-01-01] MEDS ORDERED: hydrOXYzine PAMOATE 25 MG CAPSULE (FP) PO PRN (15:49)
[2023-01-01] MEDS ORDERED: NALOXONE HCL (KLOXXADO) 8 MG SPRAY NS PRN (15:49)
[2023-01-01] MEDS ORDERED: ACETAMINOPHEN 325 MG TABLET (FP) PO PRN (15:49)
[2023-01-01] MEDS: ATORVASTATIN CA 20 MG TABLET (FP) PO SCH (21:07)
[2023-01-01] MEDS: MELATONIN 5 MG TABLETS PO SCH (21:07)
[2023-01-01] MEDS: THIAMINE HCL 100 MG TABLET (FP) PO SCH (21:07)
[2023-01-01] MEDS: NICOTINE 10 MG CARTRIDGE (INHALER) IH PRN (21:12)
[2023-01-01] MEDS: MAG HYDROX/AL HYDROX/SIMETH 30 ML UNIT-DOSE CUP PO PRN (23:00)
[2023-01-02] MEDS: PRENATAL VITAMINS W/ FOLIC ACID TABLET (FP) PO SCH (09:38)
[2023-01-02] MEDS: ASPIRIN 81 MG CHEWABLE TABLETS PO SCH (09:38)
[2023-01-02 11:45] LABS: URINE APPEARANCE CLEAR; URINE BILIRUBIN NEGATIVE (NEGATIVE); URINE COLOR YELLOW; URINE GLUCOSE (UA) NEGATIVE (NEGATIVE); URINE KETONE NEGATIVE (NEGATIVE); URINE LEUK ESTERASE NEGATIVE (NEGATIVE); URINE NITRITE NEGATIVE (NEGATIVE); URINE PROTEIN NEGATIVE (NEGATIVE); URINE UROBILINOGEN 0.2 mg/dL (0.2-1.0)
[2023-01-02] MEDS: MAG HYDROX/AL HYDROX/SIMETH 30 ML UNIT-DOSE CUP PO PRN (19:34)
[2023-01-02] MEDS: MELATONIN 5 MG TABLETS PO SCH ×2 (21:07→21:09)
[2023-01-02] MEDS: THIAMINE HCL 100 MG TABLET (FP) PO SCH (21:07)
[2023-01-02] MEDS: ATORVASTATIN CA 20 MG TABLET (FP) PO SCH (21:07)
[2023-01-03] MEDS: PRENATAL VITAMINS W/ FOLIC ACID TABLET (FP) PO SCH (09:55)
[2023-01-03] MEDS: ASPIRIN 81 MG CHEWABLE TABLETS PO SCH (09:56)
[2023-01-03] MEDS: THIAMINE HCL 100 MG TABLET (FP) PO SCH ×2 (21:07→21:09)
[2023-01-03] MEDS: MELATONIN 5 MG TABLETS PO SCH (21:07)
[2023-01-03] MEDS: ATORVASTATIN CA 20 MG TABLET (FP) PO SCH (21:07)
[2023-01-04] MEDS: ASPIRIN 81 MG CHEWABLE TABLETS PO SCH (09:30)
[2023-01-04] MEDS: PRENATAL VITAMINS W/ FOLIC ACID TABLET (FP) PO SCH (09:30)
[2023-01-04] MEDS ORDERED: ASPIRIN 81 MG CHEWABLE TABLETS PO SCH (10:53)
[2023-01-04] MEDS: MELATONIN 5 MG TABLETS PO SCH (22:04)
[2023-01-04] MEDS: ATORVASTATIN CA 20 MG TABLET (FP) PO SCH (22:04)
[2023-01-04] MEDS: MAG HYDROX/AL HYDROX/SIMETH 30 ML UNIT-DOSE CUP PO PRN (22:32)
[2023-01-04] MEDS: ARTIFICIAL TEARS (POLYVINYL ALCOHOL) OPTH DROPS OU PRN (22:53)
[2023-01-05] MEDS: PRENATAL VITAMINS W/ FOLIC ACID TABLET (FP) PO SCH (09:31)
[2023-01-05] MEDS: THIAMINE HCL 100 MG TABLET (FP) PO SCH (09:32)
[2023-01-05 12:25] LABS: BASO % 2.4 % (0-2.0); EOS % 1.5 % (0-4.5); HEMATOCRIT 35.1 % (35.4-49); HEMOGLOBIN 11.6 GM/dL (11.7-16.9); LYMPH % 27.9 % (8-40); MCH 31.2 pg (25.7-33.7); MEAN CELL VOLUME 94.6 fl (80-96); MEAN PLT VOLUME 9.1 fl (7.5-11.1); MONO % 14.2 % (3.8-10.2); PLATELET COUNT 280 10^3/uL (134-434); RBC 3.71 M/mm3 (4.00-5.60); RDW 16.3 % (11.9-15.9); WHITE BLOOD COUNT 5.5 K/mm3 (4.0-10.0)
[2023-01-05 12:32] LABS: CALCIUM 9.6 mg/dL (8.5-10.1)
[2023-01-05 12:33] LABS: ALBUMIN 3.6 g/dl (3.4-5.0); CREATININE 0.9 mg/dL (0.55-1.3)
[2023-01-05 12:34] LABS: BILIRUBIN,TOTAL 0.4 mg/dL (0.2-1)
[2023-01-05] MEDS: NICOTINE 10 MG CARTRIDGE (INHALER) IH PRN (19:50)
[2023-01-05] MEDS: ATORVASTATIN CA 20 MG TABLET (FP) PO SCH (21:20)
[2023-01-05] MEDS: ASPIRIN 81 MG CHEWABLE TABLETS PO SCH (21:20)
[2023-01-05] MEDS: MELATONIN 5 MG TABLETS PO SCH (21:44)
[2023-01-06] MEDS: PRENATAL VITAMINS W/ FOLIC ACID TABLET (FP) PO SCH (09:37)
[2023-01-06] MEDS: THIAMINE HCL 100 MG TABLET (FP) PO SCH (09:37)
[2023-01-06] MEDS: ATORVASTATIN CA 20 MG TABLET (FP) PO SCH (21:49)
[2023-01-06] MEDS: ASPIRIN 81 MG CHEWABLE TABLETS PO SCH (21:49)
[2023-01-06] MEDS: MELATONIN 5 MG TABLETS PO SCH (21:49)
[2023-01-06] MEDS: MAG HYDROX/AL HYDROX/SIMETH 30 ML UNIT-DOSE CUP PO PRN (23:00)
[2023-01-06] MEDS: ARTIFICIAL TEARS (POLYVINYL ALCOHOL) OPTH DROPS OU PRN (23:01)
[2023-01-07] MEDS: PRENATAL VITAMINS W/ FOLIC ACID TABLET (FP) PO SCH (10:07)
[2023-01-07] MEDS: THIAMINE HCL 100 MG TABLET (FP) PO SCH (10:07)
[2023-01-07] MEDS: ARTIFICIAL TEARS (POLYVINYL ALCOHOL) OPTH DROPS OU PRN (19:40)
[2023-01-07] MEDS: ATORVASTATIN CA 20 MG TABLET (FP) PO SCH (21:30)
[2023-01-07] MEDS: ASPIRIN 81 MG CHEWABLE TABLETS PO SCH (21:30)
[2023-01-07] MEDS: MELATONIN 5 MG TABLETS PO SCH (22:25)
[2023-01-08 07:17] VITALS: BP 133/82; PULSE 60; RESP 16; TEMP 97.6
[2023-01-08] MEDS: PRENATAL VITAMINS W/ FOLIC ACID TABLET (FP) PO SCH (09:15)
[2023-01-08] MEDS: THIAMINE HCL 100 MG TABLET (FP) PO SCH (09:15)
[2023-01-08] MEDS ORDERED: LACTULOSE 20 GM/30 ML UDC (FOR ORAL USE ONLY) PO SCH (10:00)
== END 2023-01-08 09:30 | disposition home or self-care (01) | DRG 895 ==
LOC: YASAS 13:15 → Y5N 16:02
PROVIDERS: ADMIT Allergy & Immunology; ATTEND Allergy & Immunology
PROC: HZ42ZZZ Group Counseling for Substance Abuse Treatment, Cognitive-Behavioral (ICD-10-PCS; principal; 2023-01-01)
DX: F10.20 Alcohol dependence, uncomplicated (principal); E72.20 Disorder of urea cycle metabolism, unspecified; F17.210 Nicotine dependence, cigarettes, uncomplicated; F10.282 Alcohol dependence with alcohol-induced sleep disorder; F10.24 Alcohol dependence with alcohol-induced mood disorder; E78.5 Hyperlipidemia, unspecified; I25.10 Atherosclerotic heart disease of native coronary artery without angina pectoris; I10 Essential (primary) hypertension; Z95.0 Presence of cardiac pacemaker; Z86.73 Personal history of transient ischemic attack (TIA), and cerebral infarction without residual deficits; Z86.79 Personal history of other diseases of the circulatory system; Z88.5 Allergy status to narcotic agent
CPT/HCPCS: 36415; 80053; 81003; 82140; 85025; 86780; 93005; 93010

== ENCOUNTER 2023-02-03 12:00 | Inpatient (IN) | payer OTHER ==
[2023-02-03 12:24] VITALS: BMI 22.5
[2023-02-03] MEDS ORDERED: MAGNESIUM HYDROX 2400MG/30ML ORAL SUSPENSION 30 ML CUP PO PRN (13:13)
[2023-02-03] MEDS ORDERED: POLYETHYLENE GLYCOL (HEALTHYLAX) 3350 17 GM PACKET PO PRN (13:13)
[2023-02-03] MEDS ORDERED: LOPERAMIDE HCL 2 MG CAPSULE PO PRN (13:13)
[2023-02-03] MEDS ORDERED: MAG HYDROX/AL HYDROX/SIMETH 30 ML UNIT-DOSE CUP PO PRN (13:13)
[2023-02-03] MEDS ORDERED: BISMUTH SUBSALICYLATE 524 MG/30 ML PO PRN (13:13)
[2023-02-03] MEDS ORDERED: NICOTINE 10 MG CARTRIDGE (INHALER) IH PRN (13:13)
[2023-02-03] MEDS ORDERED: BENZONATATE 200 MG CAPSULE PO PRN (13:13)
[2023-02-03] MEDS ORDERED: DICYCLOMINE HCL 10 MG CAPSULE PO PRN (13:13)
[2023-02-03] MEDS ORDERED: ONDANSETRON *ODT* 4 MG TABLET SL PRN (13:13)
[2023-02-03] MEDS ORDERED: NALOXONE HCL 0.4 MG/ML VIAL IM PRN (13:13)
[2023-02-03] MEDS ORDERED: NALOXONE HCL (KLOXXADO) 8 MG SPRAY NS PRN (13:13)
[2023-02-03] MEDS ORDERED: METHOCARBAMOL 500 MG TABLET PO PRN (13:13)
[2023-02-03] MEDS ORDERED: IBUPROFEN 600 MG TABLET (FP) PO PRN (13:13)
[2023-02-03] MEDS ORDERED: guaiFENesin 600 MG TABLET.ER (FP) PO PRN (13:13)
[2023-02-03] MEDS ORDERED: BENZOCAINE/MENTHOL (CHLORASEPTIC ) LOZENGE MM PRN (13:13)
[2023-02-03] MEDS ORDERED: hydrOXYzine PAMOATE 25 MG CAPSULE (FP) PO PRN (13:13)
[2023-02-03] MEDS ORDERED: IBUPROFEN 400 MG TABLET (FP) PO PRN (13:13)
[2023-02-03] MEDS ORDERED: PRENATAL VITAMINS W/ FOLIC ACID TABLET (FP) PO ONE (14:11)
[2023-02-03] MEDS: NICOTINE 7 MG/24 HOURS TOPICAL PATCH TD SCH (14:12)
[2023-02-03] MEDS: LORazepam 1 MG TABLET PO PRN ×2 (14:13→19:15)
[2023-02-03] MEDS: PRENATAL VITAMINS W/ FOLIC ACID TABLET (FP) PO SCH (14:13)
[2023-02-03] MEDS ORDERED: LORazepam 1 MG TABLET ONE (14:14)
[2023-02-03 17:09] LABS: HEMATOCRIT 36.5 % (35.4-49); HEMOGLOBIN 12.3 GM/dL (11.7-16.9); MCH 32.2 pg (25.7-33.7); MCHC 33.7 g/dl (32.0-35.9); MEAN CELL VOLUME 95.5 fl (80-96); MEAN PLT VOLUME 9.1 fl (7.5-11.1); PLATELET COUNT 278 10^3/uL (134-434); RBC 3.82 M/mm3 (4.00-5.60); RDW 16.2 % (11.9-15.9); WHITE BLOOD COUNT 13.3 K/mm3 (4.0-10.0)
[2023-02-03] MEDS: ACETAMINOPHEN 325 MG TABLET (FP) PO PRN (17:17)
[2023-02-03] MEDS: LORazepam 2 MG TABLET PO SCH ×2 (17:19→22:25)
[2023-02-03 17:28] LABS: CALCIUM 9.8 mg/dL (8.5-10.1)
[2023-02-03 17:30] LABS: ALBUMIN 4.2 g/dl (3.4-5.0)
[2023-02-03 17:32] LABS: CREATININE 0.7 mg/dL (0.55-1.3)
[2023-02-03 17:33] LABS: BILIRUBIN,TOTAL 0.6 mg/dL (0.2-1)
[2023-02-03 17:36] LABS: BLOOD UREA NITROGEN 11.8 mg/dL (7-18)
[2023-02-03] MEDS: MELATONIN 5 MG TABLETS PO SCH (22:25)
[2023-02-03] MEDS: ATORVASTATIN CA 20 MG TABLET (FP) PO SCH (22:25)
[2023-02-03] MEDS: THIAMINE HCL 100 MG TABLET (FP) PO SCH (22:25)
[2023-02-04] MEDS: LORazepam 2 MG TABLET PO SCH ×4 (05:56→22:40)
[2023-02-04] MEDS: ACETAMINOPHEN 325 MG TABLET (FP) PO PRN (05:57)
[2023-02-04] MEDS: ASPIRIN 81 MG CHEWABLE TABLETS PO SCH (10:15)
[2023-02-04] MEDS: PRENATAL VITAMINS W/ FOLIC ACID TABLET (FP) PO SCH (10:15)
[2023-02-04] MEDS: NICOTINE 7 MG/24 HOURS TOPICAL PATCH TD SCH (10:18)
[2023-02-04 11:38] LABS: BASO % 0.9 % (0-2.0); EOS % 0.4 % (0-4.5); HEMOGLOBIN 11.4 GM/dL (11.7-16.9); LYMPH % 9.1 % (8-40); MCH 32.6 pg (25.7-33.7); MCHC 34.5 g/dl (32.0-35.9); MEAN CELL VOLUME 94.4 fl (80-96); MEAN PLT VOLUME 9.8 fl (7.5-11.1); MONO % 7.1 % (3.8-10.2); NEUT % 82.5 % (42.8-82.8); PLATELET COUNT 232 10^3/uL (134-434); RBC 3.49 M/mm3 (4.00-5.60); WHITE BLOOD COUNT 9.1 K/mm3 (4.0-10.0)
[2023-02-04] MEDS: THIAMINE HCL 100 MG TABLET (FP) PO SCH (22:40)
[2023-02-04] MEDS: ATORVASTATIN CA 20 MG TABLET (FP) PO SCH (22:40)
[2023-02-04] MEDS: MELATONIN 5 MG TABLETS PO SCH (22:40)
[2023-02-05] MEDS: LORazepam 1 MG TABLET PO SCH ×3 (06:21→17:54)
[2023-02-05] MEDS: ASPIRIN 81 MG CHEWABLE TABLETS PO SCH (10:32)
[2023-02-05] MEDS: PRENATAL VITAMINS W/ FOLIC ACID TABLET (FP) PO SCH (10:32)
[2023-02-05] MEDS: NICOTINE 7 MG/24 HOURS TOPICAL PATCH TD SCH (10:33)
[2023-02-05] MEDS ORDERED: BACITRACIN 0.9 GM PACKET TP SCH (12:15)
[2023-02-05] MEDS ORDERED: BACITRACIN 0.9 GM PACKET ONE (13:23)
[2023-02-05] MEDS: LACTULOSE 20 GM/30 ML UDC (FOR ORAL USE ONLY) PO SCH ×2 (13:30→17:55)
[2023-02-05] MEDS: LORazepam 1 MG TABLET PO PRN (13:33)
[2023-02-05] MEDS ORDERED: cloNIDine HCL 0.1 MG TABLET PO ONE (13:45)
[2023-02-05 15:19] VITALS: BP 136/78; PULSE 88; RESP 20; TEMP 104
[2023-02-06] MEDS ORDERED: LORazepam 0.5 MG TABLET PO PRN
[2023-02-06] MEDS ORDERED: LORazepam 0.5 MG TABLET PO SCH (05:00)
[2023-02-07] MEDS ORDERED: LORazepam 0.5 MG TABLET PO ONE (05:00)
== END 2023-02-05 21:27 | disposition short-term general hospital (02) | DRG 897 ==
LOC: YASAS 12:00 → Y3N 13:53
PROVIDERS: ADMIT Allergy & Immunology; ATTEND Surgery
PROC: HZ2ZZZZ Detoxification Services for Substance Abuse Treatment (ICD-10-PCS; principal; 2023-02-03)
DX: F10.230 Alcohol dependence with withdrawal, uncomplicated (principal); F17.210 Nicotine dependence, cigarettes, uncomplicated; F10.282 Alcohol dependence with alcohol-induced sleep disorder; F10.24 Alcohol dependence with alcohol-induced mood disorder; E78.5 Hyperlipidemia, unspecified; I10 Essential (primary) hypertension; R50.9 Fever, unspecified; R79.89 Other specified abnormal findings of blood chemistry; Z86.79 Personal history of other diseases of the circulatory system; Z86.59 Personal history of other mental and behavioral disorders; Z86.73 Personal history of transient ischemic attack (TIA), and cerebral infarction without residual deficits; Z95.0 Presence of cardiac pacemaker; S90.812D Abrasion, left foot, subsequent encounter; X58.XXXD Exposure to other specified factors, subsequent encounter
CPT/HCPCS: 36415; 80053; 82140; 82962; 85025; 85027; 86780

== ENCOUNTER 2023-02-05 16:40 | Inpatient (IN) | payer OTHER ==
[2023-02-05] MEDS ORDERED: CEFEPIME HCL/D5W 2 GM/50 ML BAG IVPB ONE (16:48)
[2023-02-05] MEDS ORDERED: ACETAMINOPHEN 1000 MG/100 ML BAG IVPB ONE (16:48)
[2023-02-05] MEDS ORDERED: VANCOMYCIN/WATER 2 GM/400 ML PREMIX BAG (RESTRICTED TO ID ONLY) IVPB ONE (16:50)
[2023-02-05] MEDS ORDERED: diazePAM CARPU-JECT 10 MG/2 ML DISP.SYRIN IVPUSH ONE ×2 (16:51→17:27)
[2023-02-05] MEDS ORDERED: SODIUM CHLORIDE 0.9% 500 ML INFUS.BAG IV ONE (16:52)
[2023-02-05] MEDS ORDERED: ACETAMINOPHEN INJECTION 100 ML IVPB ONE (16:58)
[2023-02-05] MEDS ORDERED: diazePAM CARPU-JECT 10 MG/2 ML DISP.SYRIN ONE ×2 (17:17→17:55)
[2023-02-05] MEDS ORDERED: VANCOMYCIN/WATER FOR INJ (PEG) 2,000 MG/400 ML BAG IVPB ONE (17:17)
[2023-02-05] MEDS ORDERED: CEFEPIME 2 GM/100 ML BAG IVPB ONE (17:18)
[2023-02-05 17:36] LABS: HEMATOCRIT 37.9 % (35.4-49); HEMOGLOBIN 12.8 GM/dL (11.7-16.9); MCH 31.8 pg (25.7-33.7); MCHC 33.8 g/dl (32.0-35.9); MEAN CELL VOLUME 94.1 fl (80-96); PLATELET COUNT 170 10^3/uL (134-434); RBC 4.02 M/mm3 (4.00-5.60); RDW 16.1 % (11.9-15.9); VENOUS BASE EXCESS 0.3 mmol/L (-2-2); VENOUS O2 SATURATION 54.3 % (70-80); VENOUS PCO2 42.5 mmHg (38-52); VENOUS PH 7.395 (7.310-7.410); WHITE BLOOD COUNT 10.4 K/mm3 (4.0-10.0)
[2023-02-05] MEDS ORDERED: MIDAZOLAM HCL 5 MG/1 ML Single Dose Vial ONE (17:41)
[2023-02-05 17:42] LABS: INR 1.1 (0.83-1.09); PROTHROMBIN TIME (PATIENT) 12.8 SEC (9.7-13.0)
[2023-02-05 17:45] LABS: ACTIVATED PTT 34.6 SECONDS (25.2-36.5)
[2023-02-05 17:53] LABS: CHLORIDE 100 mmol/L (98-107); SODIUM 136 mmol/L (136-145)
[2023-02-05 17:56] LABS: CALCIUM 9.7 mg/dL (8.5-10.1)
[2023-02-05 17:57] LABS: ALBUMIN 3.6 g/dl (3.4-5.0); ANION GAP 11 MMOL/L (8-16); BLOOD UREA NITROGEN 14.7 mg/dL (7-18); CO2 25 mmol/L (21-32); GLUCOSE,RANDOM 137 mg/dL (74-106); MAGNESIUM 1.2 mg/dL (1.8-2.4)
[2023-02-05 17:59] LABS: SGPT/ALT 18 U/L (13-61)
[2023-02-05 18:00] LABS: CREATININE 1.5 mg/dL (0.55-1.3); SGOT/AST 30 U/L (15-37)
[2023-02-05 18:01] LABS: BILIRUBIN,TOTAL 0.7 mg/dL (0.2-1); TOT PROT 7.5 g/dl (6.4-8.2)
[2023-02-05 18:03] LABS: ALK PHOS 59 U/L (45-117)
[2023-02-05 18:05] LABS: ANISOCYTOSIS 2+; MACROCYTOSIS 0
[2023-02-05 18:07] LABS: LACTIC ACID 5.9 mmol/L (0.4-2.0)
[2023-02-05] MEDS ORDERED: MAGNESIUM SULF 50% (8.12 MEQ/2 ML-1 GM VIAL) IVPB ONE (18:09)
[2023-02-05 18:10] LABS: EPI CELLS >36 /uL (0-25.1); HYALINE CASTS 6 /uL (0-3.1); PH,URINE 7.5 (5.0-8.0); URINE APPEARANCE CLEAR; URINE BACTERIA 25 /uL (0-1359); URINE BILIRUBIN NEGATIVE (NEGATIVE); URINE COLOR DK YELLOW; URINE GLUCOSE (UA) NEGATIVE (NEGATIVE); URINE KETONE NEGATIVE (NEGATIVE); URINE LEUK ESTERASE NEGATIVE (NEGATIVE); URINE NITRITE NEGATIVE (NEGATIVE); URINE PROTEIN 2+ (NEGATIVE); URINE RBC 28 /uL (0-23.9); URINE WBC 42 /uL (0-25.8)
[2023-02-05] MEDS ORDERED: RAPID SEQUENCE INTUBATION KIT NR ONE (18:14)
[2023-02-05] MEDS ORDERED: MAGNESIUM SULFATE IN WATER 2 GM/50 ML IVPB IVPB ONE (18:14)
[2023-02-05] MEDS: LACTATED RINGERS SOLUTION 1,000 ML/1,000 ML INFUS.BAG IV SCH (19:01)
[2023-02-05 19:17] LABS: COCAINE, UR NEGATIVE (NEGATIVE); METHADONE, UR NEGATIVE (NEGATIVE); OPIATES, URI NEGATIVE (NEGATIVE); PHENCYCLIDINE,URINE NEGATIVE (NEGATIVE); URINE AMPHETAMINES NEGATIVE (NEGATIVE)
[2023-02-05 19:18] LABS: URINE BARBITURATES NEGATIVE (NEGATIVE)
[2023-02-05] MEDS ORDERED: levETIRAcetam 500 MG/5 ML INJECTION VIAL IVPB ONE ×2 (19:27→19:37)
[2023-02-05 19:44] LABS: URINE BENZODIAZEPINES POSITIVE (NEGATIVE)
[2023-02-05] MEDS ORDERED: ASPIRIN 81 MG CHEWABLE TABLETS PO ONE (21:58)
[2023-02-05] MEDS ORDERED: CLOPIDOGREL BISULFATE 300 MG TABLET PO ONE (22:00)
[2023-02-05] MEDS ORDERED: HEPARIN NA (PORCINE) 5,000 UNITS/ML 1ML VIAL SQ SCH (22:00)
[2023-02-05] MEDS ORDERED: levETIRAcetam 500 MG/5 ML INJECTION VIAL IVPB SCH (22:00)
[2023-02-05] MEDS ORDERED: HEPARIN NA (PORCINE) 5,000 UNITS/ML 1ML VIAL IVPUSH PRN ×2 (22:14)
[2023-02-05] MEDS: PANTOPRAZOLE SODIUM 40 MG VIAL IVPUSH SCH (23:11)
[2023-02-05] MEDS: ATORVASTATIN CA 80 MG TABLET (FP) PO SCH (23:12)
[2023-02-05] MEDS: CHLORHEXIDINE GLUCONATE 4% CLEANSER FOR DECOLONIZATION TP SCH (23:13)
[2023-02-05] MEDS: HEPARIN INFUSION - 25,000 UNITS/500 ML INFUS.BAG IVPB SCH (23:13)
[2023-02-05] MEDS: MUPIROCIN 2% TOPICAL OINTMENT FOR DECOLONIZATION NS SCH (23:13)
[2023-02-05] MEDS: ACETAMINOPHEN 1000 MG/100 ML BAG IVPB PRN (23:30)
[2023-02-05] MEDS: LORazepam 2 MG/ML SDV VIAL IVPUSH PRN (23:50)
[2023-02-06] MEDS ORDERED: ACETAMINOPHEN 1000 MG/100 ML BAG IVPB PRN (00:15)
[2023-02-06] MEDS: METOPROLOL TARTRATE 25 MG TABLET (FP) PO ONE ×2 (00:24→01:06)
[2023-02-06] MEDS ORDERED: METOPROLOL TARTRATE 5 MG/5 ML VIAL IVPUSH ONE (00:35)
[2023-02-06] MEDS: LORazepam 2 MG/ML SDV VIAL IVPUSH PRN ×2 (03:50→10:55)
[2023-02-06] MEDS: LACTATED RINGERS SOLUTION 1,000 ML/1,000 ML INFUS.BAG IV SCH ×3 (04:42→19:39)
[2023-02-06] MEDS ORDERED: CEFEPIME 2 GM in DEXTROSE 5%-WATER 100 ML IVPB SCH (05:00)
[2023-02-06] MEDS: ACETAMINOPHEN 1000 MG/100 ML BAG IVPB PRN ×2 (06:00→12:06)
[2023-02-06] MEDS ORDERED: VANCOMYCIN/WATER FOR INJ (PEG) 1,000 MG/200 ML BAG IVPB SCH ×2 (06:00→18:00)
[2023-02-06 07:42] LABS: BLOOD UREA NITROGEN 16.8 mg/dL (7-18); CALCIUM 8.6 mg/dL (8.5-10.1); MAGNESIUM 1.6 mg/dL (1.8-2.4)
[2023-02-06 07:45] LABS: PHOSPHOROUS 2.4 mg/dL (2.5-4.9)
[2023-02-06 07:46] LABS: CREATININE 1.1 mg/dL (0.55-1.3); LDH 417 U/L (87-246)
[2023-02-06 07:47] LABS: BILIRUBIN,TOTAL 0.6 mg/dL (0.2-1)
[2023-02-06 07:48] LABS: HEMATOCRIT 33.4 % (35.4-49); HEMOGLOBIN 11.7 GM/dL (11.7-16.9); MCH 32.6 pg (25.7-33.7); MCHC 34.9 g/dl (32.0-35.9); MEAN CELL VOLUME 93.2 fl (80-96); MEAN PLT VOLUME 10.1 fl (7.5-11.1); PLATELET COUNT 125 10^3/uL (134-434); RBC 3.59 M/mm3 (4.00-5.60); RDW 15.6 % (11.9-15.9); WHITE BLOOD COUNT 8.2 K/mm3 (4.0-10.0)
[2023-02-06 07:49] LABS: ALBUMIN 2.8 g/dl (3.4-5.0)
[2023-02-06] MEDS ORDERED: POTASSIUM CHLORIDE TABS 20 MEQ TABLET.ER (FP) PO ONE ×2 (08:00→11:03)
[2023-02-06] MEDS ORDERED: MAGNESIUM 1GM/D5W 100ML - 100 ML IVPB IVPB ONE (08:00)
[2023-02-06] MEDS ORDERED: CLOPIDOGREL BISULFATE 75 MG TABLET (FP) PO SCH (10:00)
[2023-02-06 10:24] LABS: ANISOCYTOSIS 0; MACROCYTOSIS 0
[2023-02-06] MEDS: ASPIRIN 81 MG CHEWABLE TABLETS PO SCH (10:59)
[2023-02-06] MEDS: METOPROLOL TARTRATE 25 MG TABLET (FP) PO SCH ×2 (10:59→21:01)
[2023-02-06] MEDS: FOLIC ACID 1 MG TABLET (FP) PO SCH (10:59)
[2023-02-06] MEDS: PANTOPRAZOLE SODIUM 40 MG VIAL IVPUSH SCH (10:59)
[2023-02-06] MEDS: THIAMINE HCL 200 MG/2 ML VIAL IVPB SCH (10:59)
[2023-02-06] MEDS: NICOTINE 14 MG/24 HOURS TOPICAL PATCH TD SCH (11:00)
[2023-02-06] MEDS: MUPIROCIN 2% TOPICAL OINTMENT FOR DECOLONIZATION NS SCH ×2 (11:00→21:01)
[2023-02-06] MEDS: CEFTRIAXONE 2 GM in DEXTROSE 5%-WATER 100 ML IVPB SCH (13:21)
[2023-02-06] MEDS ORDERED: ACETAMINOPHEN 1000 MG/100 ML BAG IVPB ONE (19:56)
[2023-02-06] MEDS: VANCOMYCIN/WATER 1250 MG 1,250 MG/250 ML BAG IVPB SCH (20:15)
[2023-02-06] MEDS: ATORVASTATIN CA 80 MG TABLET (FP) PO SCH (21:01)
[2023-02-06] MEDS: CHLORHEXIDINE GLUCONATE 4% CLEANSER FOR DECOLONIZATION TP SCH (21:01)
[2023-02-06] MEDS: HEPARIN INFUSION - 25,000 UNITS/500 ML INFUS.BAG IVPB SCH (23:35)
[2023-02-07] MEDS: CEFTRIAXONE 2 GM in DEXTROSE 5%-WATER 100 ML IVPB SCH ×2 (01:09→14:55)
[2023-02-07] MEDS: LACTATED RINGERS SOLUTION 1,000 ML/1,000 ML INFUS.BAG IV SCH ×3 (01:11→21:37)
[2023-02-07] MEDS: LORazepam 2 MG/ML SDV VIAL IVPUSH PRN ×2 (02:59→06:58)
[2023-02-07] MEDS: VANCOMYCIN/WATER 1250 MG 1,250 MG/250 ML BAG IVPB SCH ×2 (05:20→18:12)
[2023-02-07] MEDS ORDERED: ACETAMINOPHEN 1000 MG/100 ML BAG IVPB ONE (06:18)
[2023-02-07 07:30] LABS: HEMATOCRIT 36.8 % (35.4-49); MCH 32.6 pg (25.7-33.7); MCHC 35.2 g/dl (32.0-35.9); MEAN CELL VOLUME 92.7 fl (80-96); RBC 3.97 M/mm3 (4.00-5.60); RDW 15.6 % (11.9-15.9); WHITE BLOOD COUNT 4.2 K/mm3 (4.0-10.0)
[2023-02-07 08:05] LABS: ALBUMIN 2.7 g/dl (3.4-5.0); BILIRUBIN,TOTAL 0.4 mg/dL (0.2-1); BLOOD UREA NITROGEN 17.3 mg/dL (7-18); CALCIUM 8.5 mg/dL (8.5-10.1); CREATININE 0.9 mg/dL (0.55-1.3); MAGNESIUM 1.6 mg/dL (1.8-2.4)
[2023-02-07 08:11] LABS: MEAN PLT VOLUME 10.1 fl (7.5-11.1); PLATELET COUNT 48 10^3/uL (134-434)
[2023-02-07] MEDS: NICOTINE 14 MG/24 HOURS TOPICAL PATCH TD SCH (09:20)
[2023-02-07] MEDS: THIAMINE HCL 200 MG/2 ML VIAL IVPB SCH (09:20)
[2023-02-07] MEDS: ASPIRIN 81 MG CHEWABLE TABLETS PO SCH (09:24)
[2023-02-07] MEDS: FOLIC ACID 1 MG TABLET (FP) PO SCH (09:24)
[2023-02-07] MEDS: PANTOPRAZOLE SODIUM 40 MG VIAL IVPUSH SCH (09:24)
[2023-02-07] MEDS: METOPROLOL TARTRATE 25 MG TABLET (FP) PO SCH ×2 (09:25→21:37)
[2023-02-07] MEDS: MUPIROCIN 2% TOPICAL OINTMENT FOR DECOLONIZATION NS SCH ×2 (09:25→21:37)
[2023-02-07] MEDS: HEPARIN INFUSION - 25,000 UNITS/500 ML INFUS.BAG IVPB SCH (09:29)
[2023-02-07 11:32] VITALS: BMI 22.8
[2023-02-07] MEDS ORDERED: ACETAMINOPHEN 1000 MG/100 ML BAG IVPB STA (16:50)
[2023-02-07] MEDS: CHLORHEXIDINE GLUCONATE 4% CLEANSER FOR DECOLONIZATION TP SCH (21:37)
[2023-02-07] MEDS: ATORVASTATIN CA 80 MG TABLET (FP) PO SCH (21:37)
[2023-02-08] MEDS: ACETAMINOPHEN 1000 MG/100 ML BAG IVPB PRN ×4 (00:54→21:11)
[2023-02-08] MEDS: CEFTRIAXONE 2 GM in DEXTROSE 5%-WATER 100 ML IVPB SCH ×2 (03:15→14:45)
[2023-02-08] MEDS: LORazepam 2 MG/ML SDV VIAL IVPUSH PRN ×2 (03:42→14:54)
[2023-02-08] MEDS: VANCOMYCIN/WATER 1250 MG 1,250 MG/250 ML BAG IVPB SCH (06:22)
[2023-02-08 08:57] LABS: ALBUMIN 2.6 g/dl (3.4-5.0); BLOOD UREA NITROGEN 13.4 mg/dL (7-18); CALCIUM 8.3 mg/dL (8.5-10.1)
[2023-02-08 08:58] LABS: MAGNESIUM 1.3 mg/dL (1.8-2.4)
[2023-02-08 09:00] LABS: CREATININE 0.8 mg/dL (0.55-1.3); PHOSPHOROUS 2.3 mg/dL (2.5-4.9)
[2023-02-08 09:02] LABS: BILIRUBIN,TOTAL 0.6 mg/dL (0.2-1); TOT PROT 5.8 g/dl (6.4-8.2)
[2023-02-08] MEDS ORDERED: MAGNESIUM SULF 50% (8.12 MEQ/2 ML-1 GM VIAL) IVPB ONE ×2 (09:14→15:00)
[2023-02-08] MEDS ORDERED: POTASSIUM CHLORIDE ORAL LIQUID 20 MEQ/15 ML PO ONE (09:17)
[2023-02-08] MEDS: NAPH,MB-DB/K PH,MBDB POWDER PACKET PO SCH ×2 (11:12→22:33)
[2023-02-08] MEDS: THIAMINE HCL 200 MG/2 ML VIAL IVPB SCH (11:13)
[2023-02-08] MEDS: ASPIRIN 81 MG CHEWABLE TABLETS PO SCH (11:14)
[2023-02-08] MEDS: ENOXAPARIN NA (PORCINE) 40 MG/0.4 ML DISP.SYRIN SQ SCH (11:14)
[2023-02-08] MEDS: PANTOPRAZOLE SODIUM 40 MG VIAL IVPUSH SCH (11:15)
[2023-02-08] MEDS: FOLIC ACID 1 MG TABLET (FP) PO SCH (11:15)
[2023-02-08] MEDS: CLOPIDOGREL BISULFATE 75 MG TABLET (FP) PO SCH (11:15)
[2023-02-08] MEDS: METOPROLOL TARTRATE 25 MG TABLET (FP) PO SCH ×2 (11:16→22:33)
[2023-02-08] MEDS: MUPIROCIN 2% TOPICAL OINTMENT FOR DECOLONIZATION NS SCH ×2 (11:18→22:37)
[2023-02-08] MEDS: NICOTINE 14 MG/24 HOURS TOPICAL PATCH TD SCH (11:18)
[2023-02-08 13:03] LABS: HEMATOCRIT 32.1 % (35.4-49); HEMOGLOBIN 10.9 GM/dL (11.7-16.9); MCH 31.8 pg (25.7-33.7); MCHC 34.1 g/dl (32.0-35.9); MEAN CELL VOLUME 93.5 fl (80-96); MEAN PLT VOLUME 10.9 fl (7.5-11.1); PLATELET COUNT 61 10^3/uL (134-434); RBC 3.43 M/mm3 (4.00-5.60); RDW 16.3 % (11.9-15.9); WHITE BLOOD COUNT 6.1 K/mm3 (4.0-10.0)
[2023-02-08 13:28] LABS: ANISOCYTOSIS 0; HELMET CELLS 0; HOWELL-JOLLY BODIES 0; MACROCYTOSIS 0; OVALOCYTE 0; ROULEAU 0; SICKELED CELLS 0; TARGET CELLS 0; TEAR DROP CELLS 0; TOXIC GRANULATION 0
[2023-02-08] MEDS ORDERED: diazePAM CARPU-JECT 10 MG/2 ML DISP.SYRIN IVPUSH ONE ×3 (15:39→21:54)
[2023-02-08] MEDS ORDERED: chlordiazePOXIDE HCL 25 MG CAPSULE PO PRN (15:53)
[2023-02-08] MEDS ORDERED: DEXTROSE 5%-LACTATED RINGERS 1,000 ML IV SCH (16:30)
[2023-02-08 19:37] LABS: EPI CELLS 15 /uL (0-25.1); HYALINE CASTS 0 /uL (0-3.1); PH,URINE 6.5 (5.0-8.0); URINE APPEARANCE CLEAR; URINE BACTERIA 9 /uL (0-1359); URINE BILIRUBIN NEGATIVE (NEGATIVE); URINE COLOR ORANGE; URINE GLUCOSE (UA) NEGATIVE (NEGATIVE); URINE KETONE NEGATIVE (NEGATIVE); URINE LEUK ESTERASE NEGATIVE (NEGATIVE); URINE NITRITE NEGATIVE (NEGATIVE); URINE PROTEIN 2+ (NEGATIVE); URINE RBC 1804 /uL (0-23.9); URINE WBC 12 /uL (0-25.8)
[2023-02-08] MEDS ORDERED: diazePAM CARPU-JECT 10 MG/2 ML DISP.SYRIN ONE (20:00)
[2023-02-08] MEDS ORDERED: FUROSEMIDE 40 MG/4 ML INJECTABLE VIAL IVPUSH ONE (22:08)
[2023-02-08] MEDS: CHLORHEXIDINE GLUCONATE 4% CLEANSER FOR DECOLONIZATION TP SCH (22:34)
[2023-02-08] MEDS: DEXMEDETOMIDINE PREMIX 400 MCG/100 ML BAG IVPB SCH (22:34)
[2023-02-08] MEDS: ATORVASTATIN CA 80 MG TABLET (FP) PO SCH (22:34)
[2023-02-08] MEDS ORDERED: MAGNESIUM SULFATE IN WATER 2 GM/50 ML IVPB IVPB ONE (23:31)
[2023-02-08] MEDS ORDERED: KCL 10 MEQ IVPB 10 MEQ/100 ML INFUS.BAG IVPB SCH (23:45)
[2023-02-08] MEDS ORDERED: METOPROLOL TARTRATE 5 MG/5 ML VIAL IVPUSH ONE (23:51)
[2023-02-09 00:15] LABS: CALCIUM 8.8 mg/dL (8.5-10.1)
[2023-02-09 00:16] LABS: BLOOD UREA NITROGEN 13.1 mg/dL (7-18)
[2023-02-09 00:19] LABS: CREATININE 0.9 mg/dL (0.55-1.3)
[2023-02-09] MEDS: chlordiazePOXIDE HCL 25 MG CAPSULE PO SCH ×4 (02:50→17:10)
[2023-02-09] MEDS: CEFTRIAXONE 2 GM in DEXTROSE 5%-WATER 100 ML IVPB SCH (03:04)
[2023-02-09] MEDS: ACETAMINOPHEN 1000 MG/100 ML BAG IVPB PRN ×2 (03:56→17:34)
[2023-02-09 08:49] LABS: ARTERIAL BLD GAS O2 SATURATION 99.3 % (95-98); ARTERIAL BLOOD GAS BASE EXCESS 4.3 mmol/L (-2-2); ARTERIAL BLOOD GAS PO2 165.1 mmHg (80-100); ARTERIAL BLOOD GAS pH 7.505 (7.350-7.450)
[2023-02-09 08:50] LABS: ALLENS TEST POSITIVE
[2023-02-09 09:02] LABS: CALCIUM 8.5 mg/dL (8.5-10.1)
[2023-02-09 09:03] LABS: ALBUMIN 2.6 g/dl (3.4-5.0); BLOOD UREA NITROGEN 13.2 mg/dL (7-18)
[2023-02-09 09:06] LABS: CREATININE 0.8 mg/dL (0.55-1.3)
[2023-02-09 09:07] LABS: BILIRUBIN,TOTAL 0.7 mg/dL (0.2-1); TOT PROT 5.9 g/dl (6.4-8.2)
[2023-02-09] MEDS: ASPIRIN 81 MG CHEWABLE TABLETS PO SCH (09:50)
[2023-02-09] MEDS: MUPIROCIN 2% TOPICAL OINTMENT FOR DECOLONIZATION NS SCH ×2 (09:52→22:48)
[2023-02-09] MEDS: ENOXAPARIN NA (PORCINE) 40 MG/0.4 ML DISP.SYRIN SQ SCH (09:56)
[2023-02-09] MEDS: METOPROLOL TARTRATE 25 MG TABLET (FP) PO SCH ×2 (09:56→21:28)
[2023-02-09] MEDS: CLOPIDOGREL BISULFATE 75 MG TABLET (FP) PO SCH (09:56)
[2023-02-09] MEDS: FOLIC ACID 1 MG TABLET (FP) PO SCH (09:56)
[2023-02-09] MEDS: NAPH,MB-DB/K PH,MBDB POWDER PACKET PO SCH ×2 (09:57→22:48)
[2023-02-09] MEDS: PANTOPRAZOLE SODIUM 40 MG VIAL IVPUSH SCH (10:17)
[2023-02-09] MEDS: THIAMINE HCL 200 MG/2 ML VIAL IVPB SCH (10:17)
[2023-02-09] MEDS: NICOTINE 14 MG/24 HOURS TOPICAL PATCH TD SCH (10:19)
[2023-02-09] MEDS: CLINDAMYCIN 600MG PREMIX IVPB 600 MG/50 ML BAG IVPB SCH ×2 (15:32→17:13)
[2023-02-09] MEDS: CEFEPIME 2 GM in DEXTROSE 5%-WATER 100 ML IVPB SCH ×2 (15:32→21:28)
[2023-02-09] MEDS: ATORVASTATIN CA 80 MG TABLET (FP) PO SCH (21:28)
[2023-02-09] MEDS: CHLORHEXIDINE GLUCONATE 4% CLEANSER FOR DECOLONIZATION TP SCH (22:47)
[2023-02-10] MEDS: chlordiazePOXIDE HCL 25 MG CAPSULE PO SCH ×5 (01:51→22:23)
[2023-02-10] MEDS: CLINDAMYCIN 600MG PREMIX IVPB 600 MG/50 ML BAG IVPB SCH ×3 (03:34→17:48)
[2023-02-10] MEDS: CEFEPIME 2 GM in DEXTROSE 5%-WATER 100 ML IVPB SCH ×3 (06:13→22:23)
[2023-02-10 08:09] LABS: BASO % 0.2 % (0-2.0); HEMATOCRIT 33.7 % (35.4-49); HEMOGLOBIN 11.6 GM/dL (11.7-16.9); LYMPH % 9.9 % (8-40); MCH 31.9 pg (25.7-33.7); MCHC 34.3 g/dl (32.0-35.9); MEAN CELL VOLUME 92.8 fl (80-96); MEAN PLT VOLUME 11.6 fl (7.5-11.1); MONO % 10.1 % (3.8-10.2); NEUT % 79.8 % (42.8-82.8); PLATELET COUNT 77 10^3/uL (134-434); RBC 3.64 M/mm3 (4.00-5.60); RDW 16.1 % (11.9-15.9); WHITE BLOOD COUNT 10.9 K/mm3 (4.0-10.0)
[2023-02-10 08:21] LABS: CALCIUM 8.4 mg/dL (8.5-10.1)
[2023-02-10 08:22] LABS: ALBUMIN 2.4 g/dl (3.4-5.0); BLOOD UREA NITROGEN 14.4 mg/dL (7-18); MAGNESIUM 1.8 mg/dL (1.8-2.4)
[2023-02-10 08:24] LABS: CREATININE 0.7 mg/dL (0.55-1.3); PHOSPHOROUS 2.9 mg/dL (2.5-4.9)
[2023-02-10 08:26] LABS: TOT PROT 6.2 g/dl (6.4-8.2)
[2023-02-10] MEDS ORDERED: KCL 10 MEQ IVPB 10 MEQ/100 ML INFUS.BAG IVPB SCH (09:30)
[2023-02-10] MEDS: NAPH,MB-DB/K PH,MBDB POWDER PACKET PO SCH ×2 (10:36→22:23)
[2023-02-10] MEDS: METOPROLOL TARTRATE 25 MG TABLET (FP) PO SCH ×2 (10:36→22:23)
[2023-02-10] MEDS: FOLIC ACID 1 MG TABLET (FP) PO SCH (10:36)
[2023-02-10] MEDS: ASPIRIN 81 MG CHEWABLE TABLETS PO SCH (10:36)
[2023-02-10] MEDS: CLOPIDOGREL BISULFATE 75 MG TABLET (FP) PO SCH (10:36)
[2023-02-10] MEDS: PANTOPRAZOLE SODIUM 40 MG VIAL IVPUSH SCH (10:36)
[2023-02-10] MEDS: THIAMINE HCL 200 MG/2 ML VIAL IVPB SCH (10:37)
[2023-02-10] MEDS: ENOXAPARIN NA (PORCINE) 40 MG/0.4 ML DISP.SYRIN SQ SCH (10:37)
[2023-02-10] MEDS ORDERED: DEXTROSE 5%-LACTATED RINGERS 1,000 ML IV SCH (10:45)
[2023-02-10] MEDS: MUPIROCIN 2% TOPICAL OINTMENT FOR DECOLONIZATION NS SCH (10:58)
[2023-02-10] MEDS: NICOTINE 14 MG/24 HOURS TOPICAL PATCH TD SCH (11:00)
[2023-02-10] MEDS ORDERED: ACETAMINOPHEN 1000 MG/100 ML BAG IVPB PRN (11:30)
[2023-02-10] MEDS: CHLORHEXIDINE GLUCONATE 4% CLEANSER FOR DECOLONIZATION TP SCH (22:23)
[2023-02-10] MEDS: ATORVASTATIN CA 80 MG TABLET (FP) PO SCH (22:23)
[2023-02-10] MEDS: DEXMEDETOMIDINE PREMIX 400 MCG/100 ML BAG IVPB SCH (22:24)
[2023-02-11] MEDS ORDERED: DEXMEDETOMIDINE PREMIX 400 MCG/100 ML BAG IVPB SCH (00:10)
[2023-02-11] MEDS ORDERED: chlordiazePOXIDE HCL 10 MG CAPSULE PO PRN ×2 (00:10)
[2023-02-11] MEDS: CLINDAMYCIN 600MG PREMIX IVPB 600 MG/50 ML BAG IVPB SCH ×3 (02:36→17:17)
[2023-02-11] MEDS ORDERED: chlordiazePOXIDE HCL 10 MG CAPSULE PO SCH (05:00)
[2023-02-11] MEDS: CEFEPIME 2 GM in DEXTROSE 5%-WATER 100 ML IVPB SCH ×3 (05:29→23:43)
[2023-02-11] MEDS: chlordiazePOXIDE HCL 10 MG CAPSULE PO SCH ×4 (05:30→23:42)
[2023-02-11 08:03] LABS: BASO % 0.1 % (0-2.0); EOS % 0.7 % (0-4.5); HEMATOCRIT 25.4 % (35.4-49); HEMOGLOBIN 8.7 GM/dL (11.7-16.9); LYMPH % 16.9 % (8-40); MCH 31.7 pg (25.7-33.7); MCHC 34.1 g/dl (32.0-35.9); MEAN PLT VOLUME 10.5 fl (7.5-11.1); NEUT % 74.3 % (42.8-82.8); PLATELET COUNT 129 10^3/uL (134-434); RBC 2.73 M/mm3 (4.00-5.60); RDW 15.7 % (11.9-15.9)
[2023-02-11 08:17] LABS: BLOOD UREA NITROGEN 15.5 mg/dL (7-18)
[2023-02-11 08:20] LABS: PHOSPHOROUS 2.4 mg/dL (2.5-4.9)
[2023-02-11 08:21] LABS: CREATININE 0.7 mg/dL (0.55-1.3)
[2023-02-11 08:22] LABS: BILIRUBIN,TOTAL 0.6 mg/dL (0.2-1); TOT PROT 5.2 g/dl (6.4-8.2)
[2023-02-11 08:24] LABS: ALBUMIN 1.9 g/dl (3.4-5.0)
[2023-02-11] MEDS: ASPIRIN 81 MG CHEWABLE TABLETS PO SCH (09:34)
[2023-02-11] MEDS: FOLIC ACID 1 MG TABLET (FP) PO SCH (09:35)
[2023-02-11] MEDS: NAPH,MB-DB/K PH,MBDB POWDER PACKET PO SCH ×2 (09:35→23:43)
[2023-02-11] MEDS: NICOTINE 14 MG/24 HOURS TOPICAL PATCH TD SCH (09:35)
[2023-02-11] MEDS: METOPROLOL TARTRATE 25 MG TABLET (FP) PO SCH ×2 (09:35→23:41)
[2023-02-11] MEDS: CLOPIDOGREL BISULFATE 75 MG TABLET (FP) PO SCH (09:35)
[2023-02-11] MEDS: ENOXAPARIN NA (PORCINE) 40 MG/0.4 ML DISP.SYRIN SQ SCH (09:35)
[2023-02-11] MEDS ORDERED: PANTOPRAZOLE SODIUM 40 MG VIAL IVPUSH SCH (10:00)
[2023-02-11] MEDS: THIAMINE HCL 200 MG/2 ML VIAL IVPB SCH (10:14)
[2023-02-11 12:08] LABS: BASO % 0.4 % (0-2.0); EOS % 0.8 % (0-4.5); HEMOGLOBIN 8.7 GM/dL (11.7-16.9); LYMPH % 16.4 % (8-40); MCH 32.4 pg (25.7-33.7); MCHC 34.9 g/dl (32.0-35.9); MONO % 8.9 % (3.8-10.2); NEUT % 73.5 % (42.8-82.8); PLATELET COUNT 142 10^3/uL (134-434); RBC 2.69 M/mm3 (4.00-5.60); RDW 16.2 % (11.9-15.9); WHITE BLOOD COUNT 8.8 K/mm3 (4.0-10.0)
[2023-02-11] MEDS ORDERED: POTASSIUM CHLORIDE ORAL LIQUID 20 MEQ/15 ML PO ONE (15:48)
[2023-02-11] MEDS ORDERED: POTASSIUM CHLORIDE 40 MEQ in SODIUM CHLORIDE 1,000 ML IV SCH (20:30)
[2023-02-11] MEDS ORDERED: ATORVASTATIN CA 80 MG TABLET (FP) PO SCH (22:00)
[2023-02-11] MEDS: CHLORHEXIDINE GLUCONATE 4% CLEANSER FOR DECOLONIZATION TP SCH (23:43)
[2023-02-12] MEDS: CLINDAMYCIN 600MG PREMIX IVPB 600 MG/50 ML BAG IVPB SCH ×3 (02:49→17:02)
[2023-02-12] MEDS ORDERED: chlordiazePOXIDE HCL 10 MG CAPSULE PO SCH (05:00)
[2023-02-12] MEDS: CEFEPIME 2 GM in DEXTROSE 5%-WATER 100 ML IVPB SCH ×3 (06:30→21:45)
[2023-02-12] MEDS: chlordiazePOXIDE HCL 10 MG CAPSULE PO SCH ×2 (06:30→16:38)
[2023-02-12 08:03] LABS: BASO % 0.5 % (0-2.0); EOS % 1.2 % (0-4.5); HEMATOCRIT 26.3 % (35.4-49); HEMOGLOBIN 9.2 GM/dL (11.7-16.9); LYMPH % 20.4 % (8-40); MCH 32.6 pg (25.7-33.7); MEAN CELL VOLUME 93.2 fl (80-96); MEAN PLT VOLUME 10.5 fl (7.5-11.1); MONO % 10.7 % (3.8-10.2); NEUT % 67.2 % (42.8-82.8); PLATELET COUNT 207 10^3/uL (134-434); RBC 2.82 M/mm3 (4.00-5.60); RDW 15.9 % (11.9-15.9)
[2023-02-12 08:25] LABS: ALBUMIN 1.9 g/dl (3.4-5.0)
[2023-02-12 08:26] LABS: BLOOD UREA NITROGEN 11.8 mg/dL (7-18); MAGNESIUM 1.7 mg/dL (1.8-2.4)
[2023-02-12 08:28] LABS: CREATININE 0.7 mg/dL (0.55-1.3); PHOSPHOROUS 2.3 mg/dL (2.5-4.9)
[2023-02-12 08:30] LABS: BILIRUBIN,TOTAL 0.8 mg/dL (0.2-1); TOT PROT 5.5 g/dl (6.4-8.2)
[2023-02-12] MEDS ORDERED: MAGNESIUM SULF 50% (8.12 MEQ/2 ML-1 GM VIAL) IVPB ONE (09:26)
[2023-02-12] MEDS: ENOXAPARIN NA (PORCINE) 40 MG/0.4 ML DISP.SYRIN SQ SCH (09:44)
[2023-02-12] MEDS: THIAMINE HCL 200 MG/2 ML VIAL IVPB SCH ×2 (09:44→16:37)
[2023-02-12] MEDS: ASPIRIN 81 MG CHEWABLE TABLETS PO SCH (09:45)
[2023-02-12] MEDS: FOLIC ACID 1 MG TABLET (FP) PO SCH (09:45)
[2023-02-12] MEDS: CLOPIDOGREL BISULFATE 75 MG TABLET (FP) PO SCH (09:45)
[2023-02-12] MEDS: NAPH,MB-DB/K PH,MBDB POWDER PACKET PO SCH ×2 (09:45→21:45)
[2023-02-12] MEDS: PANTOPRAZOLE 40 MG TABLET PO SCH (09:45)
[2023-02-12] MEDS: METOPROLOL TARTRATE 25 MG TABLET (FP) PO SCH (09:46)
[2023-02-12] MEDS: NICOTINE 14 MG/24 HOURS TOPICAL PATCH TD SCH (09:57)
[2023-02-12] MEDS: CHLORHEXIDINE GLUCONATE 4% CLEANSER FOR DECOLONIZATION TP SCH (21:45)
[2023-02-12] MEDS: metoPROLOL SUCCINATE 25 MG TAB.SR.24H (FP) PO SCH (21:47)
[2023-02-12] MEDS: ATORVASTATIN CA 20 MG TABLET (FP) PO SCH (21:47)
[2023-02-13] MEDS: LACTATED RINGERS SOLUTION 1,000 ML/1,000 ML INFUS.BAG IV SCH ×2 (01:01→13:15)
[2023-02-13] MEDS: THIAMINE HCL 200 MG/2 ML VIAL IVPB SCH ×3 (02:17→17:30)
[2023-02-13] MEDS: CLINDAMYCIN 600MG PREMIX IVPB 600 MG/50 ML BAG IVPB SCH ×3 (02:18→17:30)
[2023-02-13] MEDS ORDERED: chlordiazePOXIDE HCL 10 MG CAPSULE PO ONE ×2 (05:00)
[2023-02-13] MEDS: CEFEPIME 2 GM in DEXTROSE 5%-WATER 100 ML IVPB SCH ×3 (05:34→22:00)
[2023-02-13] MEDS: NICOTINE 14 MG/24 HOURS TOPICAL PATCH TD SCH (10:15)
[2023-02-13] MEDS: CLOPIDOGREL BISULFATE 75 MG TABLET (FP) PO SCH (10:15)
[2023-02-13] MEDS: SPIRONOLACTONE 25 MG TABLET PO SCH (10:15)
[2023-02-13] MEDS: ASPIRIN 81 MG CHEWABLE TABLETS PO SCH (10:15)
[2023-02-13] MEDS: NAPH,MB-DB/K PH,MBDB POWDER PACKET PO SCH ×2 (10:16→22:00)
[2023-02-13] MEDS: FOLIC ACID 1 MG TABLET (FP) PO SCH (10:16)
[2023-02-13] MEDS: ENOXAPARIN NA (PORCINE) 40 MG/0.4 ML DISP.SYRIN SQ SCH (10:16)
[2023-02-13] MEDS: PANTOPRAZOLE 40 MG TABLET PO SCH (10:16)
[2023-02-13] MEDS: metoPROLOL SUCCINATE 25 MG TAB.SR.24H (FP) PO SCH ×2 (10:16→22:01)
[2023-02-13 11:36] LABS: BASO % 0.4 % (0-2.0); EOS % 0.9 % (0-4.5); HEMATOCRIT 27.6 % (35.4-49); HEMOGLOBIN 9.5 GM/dL (11.7-16.9); LYMPH % 15.5 % (8-40); MCH 31.7 pg (25.7-33.7); MCHC 34.3 g/dl (32.0-35.9); MEAN CELL VOLUME 92.4 fl (80-96); MEAN PLT VOLUME 9.3 fl (7.5-11.1); NEUT % 73.2 % (42.8-82.8); PLATELET COUNT 272 10^3/uL (134-434); RBC 2.99 M/mm3 (4.00-5.60); RDW 15.8 % (11.9-15.9); WHITE BLOOD COUNT 13.1 K/mm3 (4.0-10.0)
[2023-02-13 11:57] LABS: CALCIUM 8.5 mg/dL (8.5-10.1)
[2023-02-13 11:58] LABS: ALBUMIN 1.9 g/dl (3.4-5.0); BLOOD UREA NITROGEN 8.1 mg/dL (7-18); MAGNESIUM 1.4 mg/dL (1.8-2.4)
[2023-02-13 12:01] LABS: CREATININE 0.6 mg/dL (0.55-1.3); PHOSPHOROUS 2.6 mg/dL (2.5-4.9)
[2023-02-13 12:02] LABS: TOT PROT 5.6 g/dl (6.4-8.2)
[2023-02-13] MEDS: POTASSIUM CHLORIDE ORAL LIQUID 20 MEQ/15 ML PO SCH ×2 (13:42→22:00)
[2023-02-13] MEDS: MAGNESIUM SULF 50% (8.12 MEQ/2 ML-1 GM VIAL) IVPB SCH ×3 (13:42→18:28)
[2023-02-13] MEDS: ATORVASTATIN CA 20 MG TABLET (FP) PO SCH (22:00)
[2023-02-14] MEDS ORDERED: KETOROLAC TROMETHAMINE 15 MG/ML VIAL IVPUSH ONE (01:02)
[2023-02-14] MEDS: CLINDAMYCIN 600MG PREMIX IVPB 600 MG/50 ML BAG IVPB SCH ×3 (01:14→16:59)
[2023-02-14] MEDS: THIAMINE HCL 200 MG/2 ML VIAL IVPB SCH ×3 (02:02→17:22)
[2023-02-14] MEDS ORDERED: MELATONIN 5 MG TABLETS PO ONE (02:25)
[2023-02-14] MEDS: CEFEPIME 2 GM in DEXTROSE 5%-WATER 100 ML IVPB SCH ×3 (05:36→21:03)
[2023-02-14 08:44] LABS: BASO % 0.3 % (0-2.0); EOS % 1.7 % (0-4.5); HEMATOCRIT 26.1 % (35.4-49); HEMOGLOBIN 9.2 GM/dL (11.7-16.9); LYMPH % 13.4 % (8-40); MCH 32.5 pg (25.7-33.7); MCHC 35.1 g/dl (32.0-35.9); MEAN CELL VOLUME 92.7 fl (80-96); MEAN PLT VOLUME 9.6 fl (7.5-11.1); MONO % 11.8 % (3.8-10.2); NEUT % 72.8 % (42.8-82.8); PLATELET COUNT 302 10^3/uL (134-434); RBC 2.82 M/mm3 (4.00-5.60); RDW 15.3 % (11.9-15.9); WHITE BLOOD COUNT 13.3 K/mm3 (4.0-10.0)
[2023-02-14 09:03] LABS: CALCIUM 8.5 mg/dL (8.5-10.1)
[2023-02-14 09:06] LABS: CREATININE 0.6 mg/dL (0.55-1.3); PHOSPHOROUS 3.3 mg/dL (2.5-4.9)
[2023-02-14 09:07] LABS: BILIRUBIN,TOTAL 0.6 mg/dL (0.2-1); TOT PROT 5.8 g/dl (6.4-8.2)
[2023-02-14] MEDS: ENOXAPARIN NA (PORCINE) 40 MG/0.4 ML DISP.SYRIN SQ SCH (11:20)
[2023-02-14] MEDS: CLOPIDOGREL BISULFATE 75 MG TABLET (FP) PO SCH (11:20)
[2023-02-14] MEDS: FOLIC ACID 1 MG TABLET (FP) PO SCH (11:20)
[2023-02-14] MEDS: ASPIRIN 81 MG CHEWABLE TABLETS PO SCH (11:20)
[2023-02-14] MEDS: NAPH,MB-DB/K PH,MBDB POWDER PACKET PO SCH ×2 (11:20→21:03)
[2023-02-14] MEDS: metoPROLOL SUCCINATE 25 MG TAB.SR.24H (FP) PO SCH ×3 (11:21→21:02)
[2023-02-14] MEDS: SPIRONOLACTONE 25 MG TABLET PO SCH (11:21)
[2023-02-14] MEDS: PANTOPRAZOLE 40 MG TABLET PO SCH (11:21)
[2023-02-14] MEDS: LACTATED RINGERS SOLUTION 1,000 ML/1,000 ML INFUS.BAG IV SCH (16:12)
[2023-02-14] MEDS: ATORVASTATIN CA 20 MG TABLET (FP) PO SCH (21:03)
[2023-02-15] MEDS: CLINDAMYCIN 600MG PREMIX IVPB 600 MG/50 ML BAG IVPB SCH ×3 (01:06→17:41)
[2023-02-15] MEDS: THIAMINE HCL 200 MG/2 ML VIAL IVPB SCH ×2 (02:09→09:23)
[2023-02-15] MEDS: CEFEPIME 2 GM in DEXTROSE 5%-WATER 100 ML IVPB SCH ×3 (06:17→21:19)
[2023-02-15 08:00] LABS: BASO % 0.9 % (0-2.0); EOS % 1.1 % (0-4.5); HEMATOCRIT 27.1 % (35.4-49); HEMOGLOBIN 9.4 GM/dL (11.7-16.9); LYMPH % 15.4 % (8-40); MCH 32.1 pg (25.7-33.7); MCHC 34.7 g/dl (32.0-35.9); MEAN CELL VOLUME 92.7 fl (80-96); MEAN PLT VOLUME 9.3 fl (7.5-11.1); MONO % 10.8 % (3.8-10.2); NEUT % 71.8 % (42.8-82.8); PLATELET COUNT 362 10^3/uL (134-434); RBC 2.92 M/mm3 (4.00-5.60); RDW 15.4 % (11.9-15.9); WHITE BLOOD COUNT 15.2 K/mm3 (4.0-10.0)
[2023-02-15 08:20] LABS: ALBUMIN 2.1 g/dl (3.4-5.0); BLOOD UREA NITROGEN 7.7 mg/dL (7-18); CALCIUM 8.8 mg/dL (8.5-10.1); MAGNESIUM 1.5 mg/dL (1.8-2.4)
[2023-02-15 08:23] LABS: CREATININE 0.7 mg/dL (0.55-1.3); PHOSPHOROUS 3.2 mg/dL (2.5-4.9)
[2023-02-15 08:24] LABS: BILIRUBIN,TOTAL 0.6 mg/dL (0.2-1)
[2023-02-15 08:25] LABS: TOT PROT 6.4 g/dl (6.4-8.2)
[2023-02-15] MEDS: SPIRONOLACTONE 25 MG TABLET PO SCH (09:22)
[2023-02-15] MEDS: PANTOPRAZOLE 40 MG TABLET PO SCH (09:22)
[2023-02-15] MEDS: CLOPIDOGREL BISULFATE 75 MG TABLET (FP) PO SCH (09:22)
[2023-02-15] MEDS: ASPIRIN 81 MG CHEWABLE TABLETS PO SCH (09:22)
[2023-02-15] MEDS: FOLIC ACID 1 MG TABLET (FP) PO SCH (09:22)
[2023-02-15] MEDS: NAPH,MB-DB/K PH,MBDB POWDER PACKET PO SCH ×2 (09:23→21:19)
[2023-02-15] MEDS: ENOXAPARIN NA (PORCINE) 40 MG/0.4 ML DISP.SYRIN SQ SCH (09:23)
[2023-02-15] MEDS: metoPROLOL SUCCINATE 25 MG TAB.SR.24H (FP) PO SCH ×2 (09:25→21:19)
[2023-02-15] MEDS: ATORVASTATIN CA 20 MG TABLET (FP) PO SCH (21:19)
[2023-02-16] MEDS: CLINDAMYCIN 600MG PREMIX IVPB 600 MG/50 ML BAG IVPB SCH ×2 (02:38→09:55)
[2023-02-16] MEDS: CEFEPIME 2 GM in DEXTROSE 5%-WATER 100 ML IVPB SCH ×2 (05:05→13:13)
[2023-02-16 08:52] LABS: BASO % 0.5 % (0-2.0); EOS % 1.3 % (0-4.5); HEMATOCRIT 28.1 % (35.4-49); HEMOGLOBIN 9.7 GM/dL (11.7-16.9); LYMPH % 23.5 % (8-40); MCH 31.7 pg (25.7-33.7); MCHC 34.4 g/dl (32.0-35.9); MEAN CELL VOLUME 92.2 fl (80-96); MEAN PLT VOLUME 9.7 fl (7.5-11.1); MONO % 10.5 % (3.8-10.2); NEUT % 64.2 % (42.8-82.8); PLATELET COUNT 414 10^3/uL (134-434); RBC 3.05 M/mm3 (4.00-5.60); RDW 15.3 % (11.9-15.9)
[2023-02-16 09:15] LABS: ALBUMIN 2.5 g/dl (3.4-5.0); BLOOD UREA NITROGEN 9.3 mg/dL (7-18); CALCIUM 9.1 mg/dL (8.5-10.1); MAGNESIUM 1.4 mg/dL (1.8-2.4)
[2023-02-16 09:18] LABS: CREATININE 0.7 mg/dL (0.55-1.3)
[2023-02-16 09:19] LABS: TOT PROT 7.2 g/dl (6.4-8.2)
[2023-02-16 09:20] LABS: BILIRUBIN,TOTAL 0.6 mg/dL (0.2-1)
[2023-02-16] MEDS: ENOXAPARIN NA (PORCINE) 40 MG/0.4 ML DISP.SYRIN SQ SCH (09:54)
[2023-02-16] MEDS: NAPH,MB-DB/K PH,MBDB POWDER PACKET PO SCH ×2 (09:54→21:20)
[2023-02-16] MEDS: PANTOPRAZOLE 40 MG TABLET PO SCH (09:54)
[2023-02-16] MEDS: SPIRONOLACTONE 25 MG TABLET PO SCH (09:54)
[2023-02-16] MEDS: FOLIC ACID 1 MG TABLET (FP) PO SCH (09:54)
[2023-02-16] MEDS: THIAMINE HCL 100 MG TABLET (FP) PO SCH (09:54)
[2023-02-16] MEDS: CLOPIDOGREL BISULFATE 75 MG TABLET (FP) PO SCH (09:54)
[2023-02-16] MEDS: metoPROLOL SUCCINATE 25 MG TAB.SR.24H (FP) PO SCH ×2 (09:54→21:20)
[2023-02-16] MEDS: ASPIRIN 81 MG CHEWABLE TABLETS PO SCH (09:54)
[2023-02-16] MEDS ORDERED: MAGNESIUM SULF 50% (8.12 MEQ/2 ML-1 GM VIAL) IVPB ONE (16:43)
[2023-02-16] MEDS ORDERED: AMINO ACIDS 4.25%/D5W 1,000 ML IV SCH (16:45)
[2023-02-16] MEDS: ATORVASTATIN CA 20 MG TABLET (FP) PO SCH (21:20)
[2023-02-17 07:35] LABS: BASO % 0.8 % (0-2.0); EOS % 1.6 % (0-4.5); HEMOGLOBIN 9.9 GM/dL (11.7-16.9); LYMPH % 25.5 % (8-40); MCH 31.8 pg (25.7-33.7); MCHC 34.2 g/dl (32.0-35.9); MEAN CELL VOLUME 92.9 fl (80-96); MEAN PLT VOLUME 9.8 fl (7.5-11.1); MONO % 12.2 % (3.8-10.2); NEUT % 59.9 % (42.8-82.8); PLATELET COUNT 411 10^3/uL (134-434); RBC 3.12 M/mm3 (4.00-5.60); RDW 15.6 % (11.9-15.9); WHITE BLOOD COUNT 10.4 K/mm3 (4.0-10.0)
[2023-02-17 08:02] LABS: ALBUMIN 2.4 g/dl (3.4-5.0); BLOOD UREA NITROGEN 13.9 mg/dL (7-18); CALCIUM 9.2 mg/dL (8.5-10.1); MAGNESIUM 1.7 mg/dL (1.8-2.4)
[2023-02-17 08:05] LABS: CREATININE 0.7 mg/dL (0.55-1.3); PHOSPHOROUS 3.3 mg/dL (2.5-4.9)
[2023-02-17 08:07] LABS: BILIRUBIN,TOTAL 0.5 mg/dL (0.2-1); TOT PROT 6.8 g/dl (6.4-8.2)
[2023-02-17] MEDS ORDERED: MAGNESIUM SULF 50% (8.12 MEQ/2 ML-1 GM VIAL) IVPB ONE (08:15)
[2023-02-17] MEDS: CEFTRIAXONE 2 GM in DEXTROSE 5%-WATER 100 ML IVPB SCH (10:54)
[2023-02-17] MEDS: NAPH,MB-DB/K PH,MBDB POWDER PACKET PO SCH ×2 (10:55→21:54)
[2023-02-17] MEDS: PANTOPRAZOLE 40 MG TABLET PO SCH (10:55)
[2023-02-17] MEDS: ENOXAPARIN NA (PORCINE) 40 MG/0.4 ML DISP.SYRIN SQ SCH (10:55)
[2023-02-17] MEDS: CLOPIDOGREL BISULFATE 75 MG TABLET (FP) PO SCH (10:55)
[2023-02-17] MEDS: SPIRONOLACTONE 25 MG TABLET PO SCH (10:55)
[2023-02-17] MEDS: FOLIC ACID 1 MG TABLET (FP) PO SCH (10:55)
[2023-02-17] MEDS: metoPROLOL SUCCINATE 25 MG TAB.SR.24H (FP) PO SCH ×2 (10:55→21:54)
[2023-02-17] MEDS: ASPIRIN 81 MG CHEWABLE TABLETS PO SCH (10:55)
[2023-02-17] MEDS: THIAMINE HCL 100 MG TABLET (FP) PO SCH (10:55)
[2023-02-17] MEDS: ATORVASTATIN CA 20 MG TABLET (FP) PO SCH (21:54)
[2023-02-18 08:23] LABS: BASO % 0.8 % (0-2.0); EOS % 1.3 % (0-4.5); HEMOGLOBIN 10.6 GM/dL (11.7-16.9); LYMPH % 31.9 % (8-40); MCH 31.8 pg (25.7-33.7); MCHC 34.3 g/dl (32.0-35.9); MEAN CELL VOLUME 92.8 fl (80-96); MEAN PLT VOLUME 9.8 fl (7.5-11.1); MONO % 12.3 % (3.8-10.2); NEUT % 53.7 % (42.8-82.8); PLATELET COUNT 427 10^3/uL (134-434); RBC 3.34 M/mm3 (4.00-5.60); RDW 15.8 % (11.9-15.9); WHITE BLOOD COUNT 9.7 K/mm3 (4.0-10.0)
[2023-02-18 08:51] LABS: CALCIUM 9.6 mg/dL (8.5-10.1)
[2023-02-18 08:52] LABS: ALBUMIN 2.5 g/dl (3.4-5.0); BLOOD UREA NITROGEN 15.6 mg/dL (7-18); MAGNESIUM 1.7 mg/dL (1.8-2.4)
[2023-02-18 08:55] LABS: CREATININE 0.6 mg/dL (0.55-1.3); PHOSPHOROUS 3.6 mg/dL (2.5-4.9)
[2023-02-18 08:56] LABS: TOT PROT 7.1 g/dl (6.4-8.2)
[2023-02-18 08:57] LABS: BILIRUBIN,TOTAL 0.3 mg/dL (0.2-1)
[2023-02-18] MEDS: CEFTRIAXONE 2 GM in DEXTROSE 5%-WATER 100 ML IVPB SCH (09:59)
[2023-02-18] MEDS: PANTOPRAZOLE 40 MG TABLET PO SCH (10:02)
[2023-02-18] MEDS: FOLIC ACID 1 MG TABLET (FP) PO SCH (10:02)
[2023-02-18] MEDS: NAPH,MB-DB/K PH,MBDB POWDER PACKET PO SCH ×2 (10:02→21:38)
[2023-02-18] MEDS: THIAMINE HCL 100 MG TABLET (FP) PO SCH (10:02)
[2023-02-18] MEDS: ENOXAPARIN NA (PORCINE) 40 MG/0.4 ML DISP.SYRIN SQ SCH (10:02)
[2023-02-18] MEDS: ASPIRIN 81 MG CHEWABLE TABLETS PO SCH (10:02)
[2023-02-18] MEDS: CLOPIDOGREL BISULFATE 75 MG TABLET (FP) PO SCH (10:02)
[2023-02-18] MEDS: metoPROLOL SUCCINATE 25 MG TAB.SR.24H (FP) PO SCH ×2 (10:02→21:38)
[2023-02-18] MEDS: SPIRONOLACTONE 25 MG TABLET PO SCH (10:02)
[2023-02-18] MEDS: ATORVASTATIN CA 20 MG TABLET (FP) PO SCH (21:38)
[2023-02-19] MEDS: SPIRONOLACTONE 25 MG TABLET PO SCH (09:27)
[2023-02-19] MEDS: FOLIC ACID 1 MG TABLET (FP) PO SCH (09:27)
[2023-02-19] MEDS: THIAMINE HCL 100 MG TABLET (FP) PO SCH (09:27)
[2023-02-19] MEDS: ENOXAPARIN NA (PORCINE) 40 MG/0.4 ML DISP.SYRIN SQ SCH (09:27)
[2023-02-19] MEDS: metoPROLOL SUCCINATE 25 MG TAB.SR.24H (FP) PO SCH ×2 (09:27→21:42)
[2023-02-19] MEDS: ASPIRIN 81 MG CHEWABLE TABLETS PO SCH (09:27)
[2023-02-19] MEDS: CLOPIDOGREL BISULFATE 75 MG TABLET (FP) PO SCH (09:27)
[2023-02-19] MEDS: NAPH,MB-DB/K PH,MBDB POWDER PACKET PO SCH ×2 (09:27→21:40)
[2023-02-19] MEDS: PANTOPRAZOLE 40 MG TABLET PO SCH (09:27)
[2023-02-19] MEDS: CEFTRIAXONE 2 GM in DEXTROSE 5%-WATER 100 ML IVPB SCH (09:29)
[2023-02-19] MEDS ORDERED: ALBUTEROL SO4 2.5/IPRATROPIUM 0.5 INH SOL 3 ML VIAL.NEB. NEB PRN (18:29)
[2023-02-19] MEDS: ATORVASTATIN CA 20 MG TABLET (FP) PO SCH (21:41)
[2023-02-20 09:39] LABS: BASO % 2.4 % (0-2.0); EOS % 1.6 % (0-4.5); HEMATOCRIT 28.7 % (35.4-49); HEMOGLOBIN 10.1 GM/dL (11.7-16.9); LYMPH % 31.5 % (8-40); MCH 32.3 pg (25.7-33.7); MCHC 35.1 g/dl (32.0-35.9); MEAN PLT VOLUME 8.8 fl (7.5-11.1); MONO % 13.9 % (3.8-10.2); NEUT % 50.6 % (42.8-82.8); PLATELET COUNT 471 10^3/uL (134-434); RBC 3.12 M/mm3 (4.00-5.60); RDW 15.3 % (11.9-15.9); WHITE BLOOD COUNT 8.2 K/mm3 (4.0-10.0)
[2023-02-20] MEDS: ENOXAPARIN NA (PORCINE) 40 MG/0.4 ML DISP.SYRIN SQ SCH (09:59)
[2023-02-20] MEDS: PANTOPRAZOLE 40 MG TABLET PO SCH (10:00)
[2023-02-20] MEDS: CLOPIDOGREL BISULFATE 75 MG TABLET (FP) PO SCH (10:00)
[2023-02-20] MEDS: SPIRONOLACTONE 25 MG TABLET PO SCH (10:00)
[2023-02-20] MEDS: THIAMINE HCL 100 MG TABLET (FP) PO SCH (10:00)
[2023-02-20] MEDS: ASPIRIN 81 MG CHEWABLE TABLETS PO SCH (10:00)
[2023-02-20] MEDS: CEFTRIAXONE 2 GM in DEXTROSE 5%-WATER 100 ML IVPB SCH (10:00)
[2023-02-20] MEDS: metoPROLOL SUCCINATE 25 MG TAB.SR.24H (FP) PO SCH ×2 (10:00→21:38)
[2023-02-20] MEDS: FOLIC ACID 1 MG TABLET (FP) PO SCH (10:00)
[2023-02-20] MEDS: NAPH,MB-DB/K PH,MBDB POWDER PACKET PO SCH ×2 (10:00→21:37)
[2023-02-20 10:03] LABS: ALBUMIN 2.6 g/dl (3.4-5.0); BLOOD UREA NITROGEN 18.8 mg/dL (7-18); CALCIUM 9.6 mg/dL (8.5-10.1); MAGNESIUM 1.5 mg/dL (1.8-2.4)
[2023-02-20 10:05] LABS: CREATININE 0.7 mg/dL (0.55-1.3)
[2023-02-20 10:08] LABS: BILIRUBIN,TOTAL 0.3 mg/dL (0.2-1); TOT PROT 7.2 g/dl (6.4-8.2)
[2023-02-20] MEDS ORDERED: MAGNESIUM OXIDE 400 MG TABLET (FP) PO ONE (10:45)
[2023-02-20] MEDS: COLLAGENASE CLOSTRIDIUM HIST. 30 GRAMS TUBE TP SCH (13:33)
[2023-02-20] MEDS: ATORVASTATIN CA 20 MG TABLET (FP) PO SCH (21:37)
[2023-02-20] MEDS: MAGNESIUM OXIDE 400 MG TABLET (FP) PO SCH (21:40)
[2023-02-21 08:38] LABS: BASO % 2.2 % (0-2.0); EOS % 1.6 % (0-4.5); HEMOGLOBIN 11.1 GM/dL (11.7-16.9); LYMPH % 38.5 % (8-40); MCH 31.7 pg (25.7-33.7); MCHC 34.6 g/dl (32.0-35.9); MEAN CELL VOLUME 91.5 fl (80-96); MEAN PLT VOLUME 9.7 fl (7.5-11.1); MONO % 14.2 % (3.8-10.2); NEUT % 43.5 % (42.8-82.8); PLATELET COUNT 480 10^3/uL (134-434); RBC 3.49 M/mm3 (4.00-5.60); RDW 15.1 % (11.9-15.9); WHITE BLOOD COUNT 7.6 K/mm3 (4.0-10.0)
[2023-02-21 08:57] LABS: ALBUMIN 2.8 g/dl (3.4-5.0); BLOOD UREA NITROGEN 19.4 mg/dL (7-18); MAGNESIUM 1.6 mg/dL (1.8-2.4)
[2023-02-21 09:00] LABS: CREATININE 0.7 mg/dL (0.55-1.3)
[2023-02-21 09:01] LABS: TOT PROT 7.5 g/dl (6.4-8.2)
[2023-02-21 09:02] LABS: BILIRUBIN,TOTAL 0.3 mg/dL (0.2-1)
[2023-02-21] MEDS: metoPROLOL SUCCINATE 25 MG TAB.SR.24H (FP) PO SCH ×2 (09:55→21:59)
[2023-02-21] MEDS: SPIRONOLACTONE 25 MG TABLET PO SCH (09:55)
[2023-02-21] MEDS: NAPH,MB-DB/K PH,MBDB POWDER PACKET PO SCH ×2 (09:55→22:02)
[2023-02-21] MEDS: FOLIC ACID 1 MG TABLET (FP) PO SCH (09:56)
[2023-02-21] MEDS: MAGNESIUM OXIDE 400 MG TABLET (FP) PO SCH ×2 (09:56→22:02)
[2023-02-21] MEDS: THIAMINE HCL 100 MG TABLET (FP) PO SCH (09:56)
[2023-02-21] MEDS: CEFTRIAXONE 2 GM in DEXTROSE 5%-WATER 100 ML IVPB SCH (09:56)
[2023-02-21] MEDS: CLOPIDOGREL BISULFATE 75 MG TABLET (FP) PO SCH (09:56)
[2023-02-21] MEDS: ASPIRIN 81 MG CHEWABLE TABLETS PO SCH (09:56)
[2023-02-21] MEDS: ENOXAPARIN NA (PORCINE) 40 MG/0.4 ML DISP.SYRIN SQ SCH (09:56)
[2023-02-21] MEDS: PANTOPRAZOLE 40 MG TABLET PO SCH (09:56)
[2023-02-21] MEDS: COLLAGENASE CLOSTRIDIUM HIST. 30 GRAMS TUBE TP SCH (10:05)
[2023-02-21] MEDS ORDERED: ACETAMINOPHEN 500 MG TABLET (FP) PO ONE (19:40)
[2023-02-21] MEDS: ATORVASTATIN CA 20 MG TABLET (FP) PO SCH (22:03)
[2023-02-22] MEDS: MELATONIN 5 MG TABLETS PO PRN ×2 (00:42→22:24)
[2023-02-22] MEDS: CLOPIDOGREL BISULFATE 75 MG TABLET (FP) PO SCH (09:36)
[2023-02-22] MEDS: SPIRONOLACTONE 25 MG TABLET PO SCH (09:36)
[2023-02-22] MEDS: ASPIRIN 81 MG CHEWABLE TABLETS PO SCH (09:36)
[2023-02-22] MEDS: PANTOPRAZOLE 40 MG TABLET PO SCH (09:36)
[2023-02-22] MEDS: THIAMINE HCL 100 MG TABLET (FP) PO SCH (09:36)
[2023-02-22] MEDS: MAGNESIUM OXIDE 400 MG TABLET (FP) PO SCH ×2 (09:37→22:24)
[2023-02-22] MEDS: ENOXAPARIN NA (PORCINE) 40 MG/0.4 ML DISP.SYRIN SQ SCH (09:37)
[2023-02-22] MEDS: CEFTRIAXONE 2 GM in DEXTROSE 5%-WATER 100 ML IVPB SCH (09:37)
[2023-02-22] MEDS: FOLIC ACID 1 MG TABLET (FP) PO SCH (09:37)
[2023-02-22] MEDS: NAPH,MB-DB/K PH,MBDB POWDER PACKET PO SCH ×2 (09:37→22:24)
[2023-02-22] MEDS: COLLAGENASE CLOSTRIDIUM HIST. 30 GRAMS TUBE TP SCH (09:37)
[2023-02-22] MEDS: metoPROLOL SUCCINATE 25 MG TAB.SR.24H (FP) PO SCH ×2 (10:41→22:24)
[2023-02-22] MEDS ORDERED: ACETAMINOPHEN 500 MG TABLET (FP) PO ONE (10:41)
[2023-02-22] MEDS: ACETAMINOPHEN 325 MG TABLET (FP) PO PRN (17:39)
[2023-02-22] MEDS: ATORVASTATIN CA 20 MG TABLET (FP) PO SCH (22:24)
[2023-02-22 23:16] LABS: EPI CELLS 1 /uL (0-25.1); HYALINE CASTS 0 /uL (0-3.1); PH,URINE 7.5 (5.0-8.0); URINE APPEARANCE CLEAR; URINE BACTERIA 1 /uL (0-1359); URINE BILIRUBIN NEGATIVE (NEGATIVE); URINE COLOR YELLOW; URINE GLUCOSE (UA) NEGATIVE (NEGATIVE); URINE KETONE NEGATIVE (NEGATIVE); URINE LEUK ESTERASE NEGATIVE (NEGATIVE); URINE NITRITE NEGATIVE (NEGATIVE); URINE PROTEIN NEGATIVE (NEGATIVE); URINE RBC 351 /uL (0-23.9); URINE UROBILINOGEN 0.2 mg/dL (0.2-1.0); URINE WBC 6 /uL (0-25.8)
[2023-02-23] MEDS: TAMSULOSIN HCL 0.4 MG CAP PO SCH (07:55)
[2023-02-23] MEDS: metoPROLOL SUCCINATE 25 MG TAB.SR.24H (FP) PO SCH ×2 (09:32→21:53)
[2023-02-23] MEDS: SPIRONOLACTONE 25 MG TABLET PO SCH (09:32)
[2023-02-23] MEDS: MAGNESIUM OXIDE 400 MG TABLET (FP) PO SCH ×2 (09:32→21:52)
[2023-02-23] MEDS: ASPIRIN 81 MG CHEWABLE TABLETS PO SCH (09:32)
[2023-02-23] MEDS: THIAMINE HCL 100 MG TABLET (FP) PO SCH (09:32)
[2023-02-23] MEDS: CLOPIDOGREL BISULFATE 75 MG TABLET (FP) PO SCH (09:32)
[2023-02-23] MEDS: FOLIC ACID 1 MG TABLET (FP) PO SCH (09:32)
[2023-02-23] MEDS: NAPH,MB-DB/K PH,MBDB POWDER PACKET PO SCH ×2 (09:33→21:53)
[2023-02-23] MEDS: PANTOPRAZOLE 40 MG TABLET PO SCH (09:33)
[2023-02-23] MEDS: CEFTRIAXONE 2 GM in DEXTROSE 5%-WATER 100 ML IVPB SCH (09:33)
[2023-02-23] MEDS: COLLAGENASE CLOSTRIDIUM HIST. 30 GRAMS TUBE TP SCH (09:34)
[2023-02-23] MEDS: ACETAMINOPHEN 325 MG TABLET (FP) PO PRN (09:41)
[2023-02-23] MEDS ORDERED: ACETAMINOPHEN 1000 MG/100 ML BAG IVPB ONE (10:39)
[2023-02-23] MEDS: GABAPENTIN 300 MG CAPSULE PO SCH ×3 (11:35→21:53)
[2023-02-23] MEDS: LIDOCAINE 5% TOPICAL PATCH TP SCH (11:36)
[2023-02-23 13:45] LABS: BASO % 2.4 % (0-2.0); EOS % 1.6 % (0-4.5); HEMATOCRIT 30.2 % (35.4-49); HEMOGLOBIN 10.7 GM/dL (11.7-16.9); LYMPH % 34.8 % (8-40); MCHC 35.4 g/dl (32.0-35.9); MEAN CELL VOLUME 90.3 fl (80-96); MEAN PLT VOLUME 9.5 fl (7.5-11.1); MONO % 11.5 % (3.8-10.2); NEUT % 49.7 % (42.8-82.8); PLATELET COUNT 507 10^3/uL (134-434); RBC 3.34 M/mm3 (4.00-5.60); RDW 15.2 % (11.9-15.9); WHITE BLOOD COUNT 8.1 K/mm3 (4.0-10.0)
[2023-02-23 14:10] LABS: ALBUMIN 2.9 g/dl (3.4-5.0); BLOOD UREA NITROGEN 18.3 mg/dL (7-18); MAGNESIUM 1.6 mg/dL (1.8-2.4)
[2023-02-23 14:13] LABS: CREATININE 0.7 mg/dL (0.55-1.3)
[2023-02-23 14:14] LABS: BILIRUBIN,TOTAL 0.2 mg/dL (0.2-1); TOT PROT 7.6 g/dl (6.4-8.2)
[2023-02-23] MEDS: FINASTERIDE 5 MG TABLET (FP) PO SCH (15:30)
[2023-02-23] MEDS: ACETAMINOPHEN 500 MG TABLET (FP) PO PRN (18:44)
[2023-02-23] MEDS: ATORVASTATIN CA 20 MG TABLET (FP) PO SCH (21:53)
[2023-02-23] MEDS: LIDOCAINE PATCH REMOVAL MC SCH (21:53)
[2023-02-24] MEDS: GABAPENTIN 300 MG CAPSULE PO SCH ×3 (06:10→21:54)
[2023-02-24] MEDS: LIDOCAINE 5% TOPICAL PATCH TP SCH (09:24)
[2023-02-24] MEDS: FOLIC ACID 1 MG TABLET (FP) PO SCH (09:25)
[2023-02-24] MEDS: MAGNESIUM OXIDE 400 MG TABLET (FP) PO SCH (09:25)
[2023-02-24] MEDS: metoPROLOL SUCCINATE 25 MG TAB.SR.24H (FP) PO SCH ×2 (09:25→21:54)
[2023-02-24] MEDS: FINASTERIDE 5 MG TABLET (FP) PO SCH (09:25)
[2023-02-24] MEDS: ACETAMINOPHEN 500 MG TABLET (FP) PO PRN (09:26)
[2023-02-24] MEDS: ASPIRIN 81 MG CHEWABLE TABLETS PO SCH (09:26)
[2023-02-24] MEDS: THIAMINE HCL 100 MG TABLET (FP) PO SCH (09:26)
[2023-02-24] MEDS: SPIRONOLACTONE 25 MG TABLET PO SCH (09:26)
[2023-02-24] MEDS: CLOPIDOGREL BISULFATE 75 MG TABLET (FP) PO SCH (09:26)
[2023-02-24] MEDS: TAMSULOSIN HCL 0.4 MG CAP PO SCH (09:26)
[2023-02-24] MEDS: CEFTRIAXONE 2 GM in DEXTROSE 5%-WATER 100 ML IVPB SCH (09:27)
[2023-02-24] MEDS: NAPH,MB-DB/K PH,MBDB POWDER PACKET PO SCH ×2 (09:30→21:53)
[2023-02-24] MEDS: COLLAGENASE CLOSTRIDIUM HIST. 30 GRAMS TUBE TP SCH (09:30)
[2023-02-24] MEDS: PANTOPRAZOLE 40 MG TABLET PO SCH (09:30)
[2023-02-24] MEDS ORDERED: traMADol HCL 50 MG TABLET PO PRN (09:48)
[2023-02-24] MEDS: ACETAMINOPHEN 500 MG TABLET (FP) PO SCH ×3 (11:55→21:54)
[2023-02-24] MEDS ORDERED: NICOTINE POLACRILEX 2 MG GUM BUC ONE (20:41)
[2023-02-24] MEDS: LIDOCAINE PATCH REMOVAL MC SCH (21:52)
[2023-02-24] MEDS: ATORVASTATIN CA 20 MG TABLET (FP) PO SCH (21:54)
[2023-02-24] MEDS ORDERED: MELATONIN 5 MG TABLETS PO ONE (22:59)
[2023-02-25] MEDS: ACETAMINOPHEN 500 MG TABLET (FP) PO SCH ×4 (05:11→21:28)
[2023-02-25] MEDS: GABAPENTIN 300 MG CAPSULE PO SCH ×3 (05:14→21:29)
[2023-02-25] MEDS: TAMSULOSIN HCL 0.4 MG CAP PO SCH (10:19)
[2023-02-25] MEDS: NAPH,MB-DB/K PH,MBDB POWDER PACKET PO SCH ×2 (10:19→21:28)
[2023-02-25] MEDS: FOLIC ACID 1 MG TABLET (FP) PO SCH (10:20)
[2023-02-25] MEDS: PANTOPRAZOLE 40 MG TABLET PO SCH (10:20)
[2023-02-25] MEDS: metoPROLOL SUCCINATE 25 MG TAB.SR.24H (FP) PO SCH ×2 (10:20→21:29)
[2023-02-25] MEDS: FINASTERIDE 5 MG TABLET (FP) PO SCH (10:20)
[2023-02-25] MEDS: THIAMINE HCL 100 MG TABLET (FP) PO SCH (10:20)
[2023-02-25] MEDS: SPIRONOLACTONE 25 MG TABLET PO SCH (10:20)
[2023-02-25] MEDS: ASPIRIN 81 MG CHEWABLE TABLETS PO SCH (11:25)
[2023-02-25] MEDS: CLOPIDOGREL BISULFATE 75 MG TABLET (FP) PO SCH (11:25)
[2023-02-25] MEDS: COLLAGENASE CLOSTRIDIUM HIST. 30 GRAMS TUBE TP SCH (11:26)
[2023-02-25] MEDS: LIDOCAINE 5% TOPICAL PATCH TP SCH (11:37)
[2023-02-25] MEDS: CEFTRIAXONE 2 GM in DEXTROSE 5%-WATER 100 ML IVPB SCH (11:37)
[2023-02-25] MEDS: NICOTINE POLACRILEX 2 MG GUM BUC PRN (18:45)
[2023-02-25] MEDS: ATORVASTATIN CA 20 MG TABLET (FP) PO SCH (21:28)
[2023-02-25] MEDS: LIDOCAINE PATCH REMOVAL MC SCH (21:29)
[2023-02-26] MEDS: ACETAMINOPHEN 500 MG TABLET (FP) PO SCH ×2 (05:42→09:03)
[2023-02-26] MEDS: GABAPENTIN 300 MG CAPSULE PO SCH ×2 (05:42→13:52)
[2023-02-26] MEDS: TAMSULOSIN HCL 0.4 MG CAP PO SCH (08:19)
[2023-02-26] MEDS: THIAMINE HCL 100 MG TABLET (FP) PO SCH (09:03)
[2023-02-26] MEDS: FINASTERIDE 5 MG TABLET (FP) PO SCH (09:04)
[2023-02-26] MEDS: CLOPIDOGREL BISULFATE 75 MG TABLET (FP) PO SCH (09:04)
[2023-02-26] MEDS: NAPH,MB-DB/K PH,MBDB POWDER PACKET PO SCH (09:04)
[2023-02-26] MEDS: NICOTINE POLACRILEX 2 MG GUM BUC PRN (09:04)
[2023-02-26] MEDS: SPIRONOLACTONE 25 MG TABLET PO SCH (09:04)
[2023-02-26] MEDS: metoPROLOL SUCCINATE 25 MG TAB.SR.24H (FP) PO SCH (09:04)
[2023-02-26] MEDS: FOLIC ACID 1 MG TABLET (FP) PO SCH (09:04)
[2023-02-26] MEDS: ASPIRIN 81 MG CHEWABLE TABLETS PO SCH (09:04)
[2023-02-26] MEDS: LIDOCAINE 5% TOPICAL PATCH TP SCH (09:05)
[2023-02-26] MEDS: PANTOPRAZOLE 40 MG TABLET PO SCH (09:05)
[2023-02-26] MEDS: CEFTRIAXONE 2 GM in DEXTROSE 5%-WATER 100 ML IVPB SCH (09:05)
[2023-02-26] MEDS: COLLAGENASE CLOSTRIDIUM HIST. 30 GRAMS TUBE TP SCH (09:06)
[2023-02-26 11:00] VITALS: BP 135/75; PULSE 62; RESP 20; TEMP 98.2
== END 2023-02-26 14:44 | DRG 871 ==
LOC: JER 16:40 → JERBED 17:51 → JICU 20:49 → J4S 02-10 23:44 → J8W 02-19 02:52
PROVIDERS: ADMIT Internal Medicine Pulmonary Disease; ATTEND Nurse Practitioner Acute Care
PROC: 02HV33Z Insertion of Infusion Device into Superior Vena Cava, Percutaneous Approach (ICD-10-PCS; principal; 2023-02-22)
DX: A40.9 Streptococcal sepsis, unspecified (principal); I21.4 Non-ST elevation (NSTEMI) myocardial infarction; J96.01 Acute respiratory failure with hypoxia; J18.9 Pneumonia, unspecified organism; F10.239 Alcohol dependence with withdrawal, unspecified; M62.82 Rhabdomyolysis; I47.20 Ventricular tachycardia, unspecified; I50.32 Chronic diastolic (congestive) heart failure; N17.9 Acute kidney failure, unspecified; E72.20 Disorder of urea cycle metabolism, unspecified; L03.116 Cellulitis of left lower limb; E87.20 Acidosis, unspecified; I50.22 Chronic systolic (congestive) heart failure; G93.40 Encephalopathy, unspecified; F17.210 Nicotine dependence, cigarettes, uncomplicated; I48.0 Paroxysmal atrial fibrillation; R65.20 Severe sepsis without septic shock; D69.6 Thrombocytopenia, unspecified; R74.01 Elevation of levels of liver transaminase levels; E78.5 Hyperlipidemia, unspecified; I11.0 Hypertensive heart disease with heart failure
CPT/HCPCS: 0241U-QW; 36415; 36569; 36600; 70450-TC; 70491-TC; 71045-TC-FY; 71275-TC; 72129-TC; 73630-TC-LT; 74177-TC; 77001-TC-FY; 80048; 80053; 80307; 81003; 82272; 82550; 82553; 82607; 82803; 82962; 83036; 83605; 83615; 83735; 84100; 84439; 84443; 84484; 85025; 85027; 85610; 85730; 86140; 86850; 86900; 86901; 87040; 87077; 87081; 87086; 87186; 87899; 93005; 93010; 93306-TC; 97116-GP; 97161-GP; 99291; 99292; C1751; C9803-CS; G0480; J1644; Q9967; U0003; U0005

== ENCOUNTER 2023-04-06 17:37 | Inpatient (IN) | payer OTHER ==
[2023-04-06 18:18] VITALS: BMI 22.5
[2023-04-06] MEDS ORDERED: BISMUTH SUBSALICYLATE 524 MG/30 ML PO PRN (20:58)
[2023-04-06] MEDS ORDERED: NALOXONE HCL 0.4 MG/ML VIAL IM PRN (20:58)
[2023-04-06] MEDS ORDERED: NALOXONE HCL (KLOXXADO) 8 MG SPRAY NS PRN (20:58)
[2023-04-06] MEDS ORDERED: MAGNESIUM HYDROX 2400MG/30ML ORAL SUSPENSION 30 ML CUP PO PRN (20:58)
[2023-04-06] MEDS ORDERED: METHOCARBAMOL 500 MG TABLET PO PRN (20:58)
[2023-04-06] MEDS ORDERED: MAG HYDROX/AL HYDROX/SIMETH 30 ML UNIT-DOSE CUP PO PRN (20:58)
[2023-04-06] MEDS ORDERED: IBUPROFEN 400 MG TABLET (FP) PO PRN (20:58)
[2023-04-06] MEDS ORDERED: NICOTINE POLACRILEX 2 MG GUM BUC PRN (20:58)
[2023-04-06] MEDS ORDERED: ONDANSETRON *ODT* 4 MG TABLET SL PRN (20:58)
[2023-04-06] MEDS ORDERED: guaiFENesin 600 MG TABLET.ER (FP) PO PRN (20:58)
[2023-04-06] MEDS ORDERED: LOPERAMIDE HCL 2 MG CAPSULE PO PRN (20:58)
[2023-04-06] MEDS ORDERED: DICYCLOMINE HCL 10 MG CAPSULE PO PRN (20:58)
[2023-04-06] MEDS ORDERED: IBUPROFEN 600 MG TABLET (FP) PO PRN (20:58)
[2023-04-06] MEDS ORDERED: ACETAMINOPHEN 325 MG TABLET (FP) PO PRN (20:58)
[2023-04-06] MEDS ORDERED: BENZOCAINE/MENTHOL (CHLORASEPTIC ) LOZENGE MM PRN (20:58)
[2023-04-06] MEDS ORDERED: BENZONATATE 200 MG CAPSULE PO PRN (20:58)
[2023-04-06] MEDS ORDERED: POLYETHYLENE GLYCOL (HEALTHYLAX) 3350 17 GM PACKET PO PRN (20:58)
[2023-04-06] MEDS ORDERED: MELATONIN 5 MG TABLETS PO SCH (22:00)
[2023-04-06] MEDS ORDERED: THIAMINE HCL 100 MG TABLET (FP) PO SCH (22:00)
[2023-04-07 09:24] VITALS: BP 120/79; PULSE 65; RESP 18; TEMP 98.6
[2023-04-07] MEDS ORDERED: chlordiazePOXIDE HCL 25 MG CAPSULE PO PRN (09:45)
[2023-04-07] MEDS ORDERED: NICOTINE 14 MG/24 HOURS TOPICAL PATCH TD SCH (10:00)
[2023-04-07] MEDS ORDERED: PANTOPRAZOLE 40 MG TABLET PO SCH (10:00)
[2023-04-07] MEDS ORDERED: APIXABAN 5 MG TABLET PO SCH (10:00)
[2023-04-07] MEDS ORDERED: PRENATAL VITAMINS W/ FOLIC ACID TABLET (FP) PO SCH (10:00)
[2023-04-07] MEDS: chlordiazePOXIDE HCL 25 MG CAPSULE PO SCH ×2 (10:20→18:37)
[2023-04-07] MEDS ORDERED: metoPROLOL SUCCINATE 25 MG TAB.SR.24H (FP) PO SCH (10:30)
[2023-04-07 11:49] LABS: HEMATOCRIT 30.8 % (35.4-49); HEMOGLOBIN 10.3 GM/dL (11.7-16.9); MCH 31.3 pg (25.7-33.7); MCHC 33.4 g/dl (32.0-35.9); MEAN CELL VOLUME 93.4 fl (80-96); MEAN PLT VOLUME 8.5 fl (7.5-11.1); PLATELET COUNT 333 10^3/uL (134-434); RDW 16.2 % (11.9-15.9)
[2023-04-07 12:27] LABS: ALBUMIN 3.2 g/dl (3.4-5.0); CALCIUM 9.4 mg/dL (8.5-10.1)
[2023-04-07 12:28] LABS: BLOOD UREA NITROGEN 7.7 mg/dL (7-18)
[2023-04-07 12:30] LABS: CREATININE 0.6 mg/dL (0.55-1.3)
[2023-04-07 12:32] LABS: BILIRUBIN,TOTAL 0.9 mg/dL (0.2-1); TOT PROT 6.7 g/dl (6.4-8.2)
[2023-04-07] MEDS ORDERED: ATORVASTATIN CA 20 MG TABLET (FP) PO SCH (22:00)
[2023-04-08] MEDS ORDERED: TAMSULOSIN HCL 0.4 MG CAP PO SCH (08:30)
[2023-04-09] MEDS ORDERED: chlordiazePOXIDE HCL 25 MG CAPSULE PO SCH (05:00)
[2023-04-10] MEDS ORDERED: chlordiazePOXIDE HCL 10 MG CAPSULE PO PRN
[2023-04-10] MEDS ORDERED: chlordiazePOXIDE HCL 10 MG CAPSULE PO SCH (05:00)
[2023-04-11] MEDS ORDERED: chlordiazePOXIDE HCL 10 MG CAPSULE PO SCH (05:00)
[2023-04-12] MEDS ORDERED: chlordiazePOXIDE HCL 10 MG CAPSULE PO ONE (05:00)
[2023-04-14] MEDS ORDERED: APIXABAN 5 MG TABLET PO SCH (10:00)
== END 2023-04-07 21:57 | disposition short-term general hospital (02) | DRG 897 ==
LOC: YASAS 17:37 → Y3N 22:54
PROVIDERS: ADMIT Allergy & Immunology; ATTEND Surgery
PROC: HZ2ZZZZ Detoxification Services for Substance Abuse Treatment (ICD-10-PCS; principal; 2023-04-06)
DX: F10.230 Alcohol dependence with withdrawal, uncomplicated (principal); F17.210 Nicotine dependence, cigarettes, uncomplicated; E78.5 Hyperlipidemia, unspecified; I10 Essential (primary) hypertension; R94.31 Abnormal electrocardiogram [ECG] [EKG]; Z95.0 Presence of cardiac pacemaker; Z86.73 Personal history of transient ischemic attack (TIA), and cerebral infarction without residual deficits; Z86.79 Personal history of other diseases of the circulatory system; Z86.711 Personal history of pulmonary embolism; Z79.01 Long term (current) use of anticoagulants
CPT/HCPCS: 36415; 80053; 85027; 86780; 93005; 93010; C9803-CS; U0003; U0005

== ENCOUNTER 2023-04-07 11:35 | Inpatient (IN) | payer OTHER ==
[2023-04-07 12:40] LABS: BASO % 1.3 % (0-2.0); EOS % 1.8 % (0-4.5); HEMATOCRIT 29.3 % (35.4-49); HEMOGLOBIN 10.1 GM/dL (11.7-16.9); LYMPH % 19.5 % (8-40); MCH 31.7 pg (25.7-33.7); MCHC 34.3 g/dl (32.0-35.9); MEAN CELL VOLUME 92.6 fl (80-96); MEAN PLT VOLUME 8.6 fl (7.5-11.1); MONO % 6.6 % (3.8-10.2); NEUT % 70.8 % (42.8-82.8); PLATELET COUNT 324 10^3/uL (134-434); RBC 3.17 M/mm3 (4.00-5.60); RDW 15.8 % (11.9-15.9); WHITE BLOOD COUNT 6.5 K/mm3 (4.0-10.0)
[2023-04-07 12:47] LABS: POTASSIUM 3.9 mmol/L (3.5-5.1)
[2023-04-07 12:50] LABS: CALCIUM 9.7 mg/dL (8.5-10.1)
[2023-04-07 12:51] LABS: BLOOD UREA NITROGEN 8.2 mg/dL (7-18)
[2023-04-07 12:52] LABS: ALBUMIN 3.2 g/dl (3.4-5.0); MAGNESIUM 1.5 mg/dL (1.8-2.4)
[2023-04-07 12:54] LABS: CREATININE 0.7 mg/dL (0.55-1.3)
[2023-04-07 12:55] LABS: TOT PROT 6.8 g/dl (6.4-8.2)
[2023-04-07] MEDS ORDERED: MAGNESIUM SULF 50% (8.12 MEQ/2 ML-1 GM VIAL) IVPB ONE (12:56)
[2023-04-07] MEDS ORDERED: MAGNESIUM SULFATE IN WATER 2 GM/50 ML IVPB IVPB ONE (12:57)
[2023-04-07 13:01] LABS: INR 1.5 (0.83-1.09); PROTHROMBIN TIME (PATIENT) 17.3 SEC (9.7-13.0)
[2023-04-07] MEDS ORDERED: chlordiazePOXIDE HCL 25 MG CAPSULE PO PRN (16:12)
[2023-04-07 17:46] VITALS: BMI 22.0
[2023-04-07] MEDS: IBUPROFEN 600 MG TABLET (FP) PO PRN (20:26)
[2023-04-07] MEDS: chlordiazePOXIDE HCL 25 MG CAPSULE PO SCH (21:18)
[2023-04-07] MEDS: APIXABAN 5 MG TABLET PO SCH (21:18)
[2023-04-07] MEDS: metoPROLOL SUCCINATE 25 MG TAB.SR.24H (FP) PO SCH (21:19)
[2023-04-07] MEDS: ATORVASTATIN CA 20 MG TABLET (FP) PO SCH (21:19)
[2023-04-07] MEDS ORDERED: MELATONIN 5 MG TABLETS PO ONE (21:27)
[2023-04-08] MEDS: chlordiazePOXIDE HCL 25 MG CAPSULE PO SCH ×3 (05:42→21:44)
[2023-04-08 07:28] LABS: BASO % 2.1 % (0-2.0); EOS % 3.8 % (0-4.5); HEMATOCRIT 31.1 % (35.4-49); HEMOGLOBIN 10.7 GM/dL (11.7-16.9); LYMPH % 34.7 % (8-40); MCH 32.1 pg (25.7-33.7); MCHC 34.4 g/dl (32.0-35.9); MEAN CELL VOLUME 93.1 fl (80-96); MEAN PLT VOLUME 8.5 fl (7.5-11.1); MONO % 7.5 % (3.8-10.2); NEUT % 51.9 % (42.8-82.8); PLATELET COUNT 303 10^3/uL (134-434); RBC 3.34 M/mm3 (4.00-5.60); RDW 15.8 % (11.9-15.9); WHITE BLOOD COUNT 5.3 K/mm3 (4.0-10.0)
[2023-04-08 07:41] LABS: POTASSIUM 3.8 mmol/L (3.5-5.1)
[2023-04-08 07:44] LABS: CALCIUM 9.3 mg/dL (8.5-10.1)
[2023-04-08 07:45] LABS: BLOOD UREA NITROGEN 11.5 mg/dL (7-18); MAGNESIUM 1.8 mg/dL (1.8-2.4)
[2023-04-08 07:48] LABS: CREATININE 0.7 mg/dL (0.55-1.3); PHOSPHOROUS 4.1 mg/dL (2.5-4.9)
[2023-04-08 07:49] LABS: BILIRUBIN,TOTAL 0.7 mg/dL (0.2-1)
[2023-04-08 07:50] LABS: TOT PROT 6.4 g/dl (6.4-8.2)
[2023-04-08] MEDS: CYANOCOBALAMIN 1,000 MCG TABLET (FP) PO SCH (09:40)
[2023-04-08] MEDS: LOSARTAN POTASSIUM 25 MG TABLET PO SCH (09:40)
[2023-04-08] MEDS: THIAMINE HCL 100 MG TABLET (FP) PO SCH (09:40)
[2023-04-08] MEDS: APIXABAN 5 MG TABLET PO SCH ×2 (09:40→21:44)
[2023-04-08] MEDS: FOLIC ACID 1 MG TABLET (FP) PO SCH (09:40)
[2023-04-08] MEDS: SPIRONOLACTONE 25 MG TABLET PO SCH (09:40)
[2023-04-08] MEDS: metoPROLOL SUCCINATE 25 MG TAB.SR.24H (FP) PO SCH ×2 (09:42→09:51)
[2023-04-08] MEDS: IBUPROFEN 600 MG TABLET (FP) PO PRN (13:45)
[2023-04-08] MEDS ORDERED: SODIUM CHLORIDE 1,000 ML IV STA (13:57)
[2023-04-08] MEDS ORDERED: ACETAMINOPHEN 1000 MG/100 ML BAG IVPB PRN (14:10)
[2023-04-08] MEDS: NICOTINE 7 MG/24 HOURS TOPICAL PATCH TD SCH (21:44)
[2023-04-08] MEDS: ATORVASTATIN CA 20 MG TABLET (FP) PO SCH (21:45)
[2023-04-08] MEDS: MELATONIN 5 MG TABLETS PO SCH ×2 (23:53)
[2023-04-09] MEDS: chlordiazePOXIDE HCL 25 MG CAPSULE PO SCH ×3 (05:05→22:31)
[2023-04-09 07:06] LABS: CALCIUM 9.3 mg/dL (8.5-10.1)
[2023-04-09 07:07] LABS: BLOOD UREA NITROGEN 12.9 mg/dL (7-18); MAGNESIUM 1.5 mg/dL (1.8-2.4)
[2023-04-09 07:10] LABS: CREATININE 0.7 mg/dL (0.55-1.3); PHOSPHOROUS 4.2 mg/dL (2.5-4.9)
[2023-04-09 07:11] LABS: CHOLESTEROL 167 mg/dL (50-200)
[2023-04-09 07:12] LABS: LDL CHOLESTEROL (ONLY SJRH) 91 mg/dL (5-100)
[2023-04-09 07:14] LABS: HDL CHOLESTEROL 59 mg/dL (40-60)
[2023-04-09] MEDS ORDERED: MAGNESIUM SULFATE IN WATER 4 GM/50 ML BAG IVPB ONE (09:00)
[2023-04-09] MEDS ORDERED: MAGNESIUM 4GM/H20 - 4 GM/100 ML IVPB IVPB ONE (09:15)
[2023-04-09] MEDS: APIXABAN 5 MG TABLET PO SCH ×2 (09:43→22:32)
[2023-04-09] MEDS: FOLIC ACID 1 MG TABLET (FP) PO SCH (09:43)
[2023-04-09] MEDS: LOSARTAN POTASSIUM 25 MG TABLET PO SCH (09:43)
[2023-04-09] MEDS: CYANOCOBALAMIN 1,000 MCG TABLET (FP) PO SCH (09:43)
[2023-04-09] MEDS: SPIRONOLACTONE 25 MG TABLET PO SCH (09:43)
[2023-04-09] MEDS: NICOTINE 7 MG/24 HOURS TOPICAL PATCH TD SCH (09:44)
[2023-04-09] MEDS: THIAMINE HCL 100 MG TABLET (FP) PO SCH (09:44)
[2023-04-09] MEDS ORDERED: MAGNESIUM 2GM/50ML STERILE WATER IVPB IVPB ONE (09:45)
[2023-04-09] MEDS: MELATONIN 5 MG TABLETS PO SCH (22:32)
[2023-04-09] MEDS: ATORVASTATIN CA 20 MG TABLET (FP) PO SCH (22:36)
[2023-04-10] MEDS: chlordiazePOXIDE HCL 25 MG CAPSULE PO SCH ×3 (05:37→21:40)
[2023-04-10 07:56] LABS: POTASSIUM 4.1 mmol/L (3.5-5.1)
[2023-04-10 07:59] LABS: BLOOD UREA NITROGEN 14.4 mg/dL (7-18); CALCIUM 9.5 mg/dL (8.5-10.1); MAGNESIUM 1.7 mg/dL (1.8-2.4)
[2023-04-10 08:02] LABS: CREATININE 0.7 mg/dL (0.55-1.3); PHOSPHOROUS 4.4 mg/dL (2.5-4.9)
[2023-04-10] MEDS: SPIRONOLACTONE 25 MG TABLET PO SCH (10:00)
[2023-04-10] MEDS: THIAMINE HCL 100 MG TABLET (FP) PO SCH (10:00)
[2023-04-10] MEDS: APIXABAN 5 MG TABLET PO SCH ×2 (10:00→21:43)
[2023-04-10] MEDS: LOSARTAN POTASSIUM 25 MG TABLET PO SCH (10:00)
[2023-04-10] MEDS: NICOTINE 7 MG/24 HOURS TOPICAL PATCH TD SCH (10:00)
[2023-04-10] MEDS: CYANOCOBALAMIN 1,000 MCG TABLET (FP) PO SCH (10:00)
[2023-04-10] MEDS: FOLIC ACID 1 MG TABLET (FP) PO SCH (10:00)
[2023-04-10] MEDS: MELATONIN 5 MG TABLETS PO SCH (21:39)
[2023-04-10] MEDS: ATORVASTATIN CA 20 MG TABLET (FP) PO SCH (21:40)
[2023-04-11] MEDS: chlordiazePOXIDE HCL 25 MG CAPSULE PO SCH ×3 (05:41→22:07)
[2023-04-11 08:41] LABS: BLOOD UREA NITROGEN 15.6 mg/dL (7-18); CALCIUM 9.2 mg/dL (8.5-10.1)
[2023-04-11 08:42] LABS: MAGNESIUM 1.6 mg/dL (1.8-2.4)
[2023-04-11 08:45] LABS: CREATININE 0.7 mg/dL (0.55-1.3); PHOSPHOROUS 4.4 mg/dL (2.5-4.9)
[2023-04-11] MEDS ORDERED: MAGNESIUM 2GM/50ML STERILE WATER IVPB IVPB ONE (08:57)
[2023-04-11] MEDS ORDERED: SODIUM CHLORIDE 250 ML IV STA (09:57)
[2023-04-11] MEDS: NICOTINE 7 MG/24 HOURS TOPICAL PATCH TD SCH (10:47)
[2023-04-11] MEDS: metoPROLOL SUCCINATE 25 MG TAB.SR.24H (FP) PO SCH ×2 (10:47→22:08)
[2023-04-11] MEDS: THIAMINE HCL 100 MG TABLET (FP) PO SCH (10:47)
[2023-04-11] MEDS: LOSARTAN POTASSIUM 25 MG TABLET PO SCH (10:47)
[2023-04-11] MEDS: APIXABAN 5 MG TABLET PO SCH ×2 (10:47→22:07)
[2023-04-11] MEDS: SPIRONOLACTONE 25 MG TABLET PO SCH (10:47)
[2023-04-11] MEDS: CYANOCOBALAMIN 1,000 MCG TABLET (FP) PO SCH (10:47)
[2023-04-11] MEDS: FOLIC ACID 1 MG TABLET (FP) PO SCH (10:47)
[2023-04-11] MEDS ORDERED: MAGNESIUM SULF 50% (8.12 MEQ/2 ML-1 GM VIAL) IVPB ONE (16:01)
[2023-04-11] MEDS: ATORVASTATIN CA 20 MG TABLET (FP) PO SCH (22:07)
[2023-04-11] MEDS: MELATONIN 5 MG TABLETS PO SCH (22:08)
[2023-04-11] MEDS: ACETAMINOPHEN 325 MG TABLET (FP) PO PRN (23:00)
[2023-04-12] MEDS: chlordiazePOXIDE HCL 25 MG CAPSULE PO SCH ×2 (06:55→14:43)
[2023-04-12] MEDS: ACETAMINOPHEN 325 MG TABLET (FP) PO PRN (07:07)
[2023-04-12 08:32] LABS: POTASSIUM 4.5 mmol/L (3.5-5.1)
[2023-04-12 08:36] LABS: BLOOD UREA NITROGEN 15.7 mg/dL (7-18); MAGNESIUM 1.7 mg/dL (1.8-2.4)
[2023-04-12 08:39] LABS: CREATININE 0.8 mg/dL (0.55-1.3); PHOSPHOROUS 4.3 mg/dL (2.5-4.9)
[2023-04-12] MEDS ORDERED: MAGNESIUM SULF 50% (8.12 MEQ/2 ML-1 GM VIAL) IVPB ONE (08:55)
[2023-04-12] MEDS: SPIRONOLACTONE 25 MG TABLET PO SCH (09:51)
[2023-04-12] MEDS: LOSARTAN POTASSIUM 25 MG TABLET PO SCH (09:51)
[2023-04-12] MEDS: FOLIC ACID 1 MG TABLET (FP) PO SCH (09:51)
[2023-04-12] MEDS: APIXABAN 5 MG TABLET PO SCH (09:51)
[2023-04-12] MEDS: CYANOCOBALAMIN 1,000 MCG TABLET (FP) PO SCH (09:51)
[2023-04-12] MEDS: NICOTINE 7 MG/24 HOURS TOPICAL PATCH TD SCH (09:52)
[2023-04-12] MEDS: metoPROLOL SUCCINATE 25 MG TAB.SR.24H (FP) PO SCH (09:52)
[2023-04-12] MEDS: MAGNESIUM SULFATE IN WATER 2 GM/50 ML IVPB IVPB SCH ×2 (09:52→11:19)
[2023-04-12] MEDS: THIAMINE HCL 100 MG TABLET (FP) PO SCH (09:52)
[2023-04-12 14:38] VITALS: BP 134/81; PULSE 58; RESP 18; TEMP 98.4
== END 2023-04-12 18:19 | disposition home or self-care (01) | DRG 309 ==
LOC: JER 11:35 → UNDOADMOB 15:17 → JERBED 15:17 → INTOOBSV 15:17 → JERBED 15:55 → J4W 17:37 → JERBED 17:37 → J4W 17:37 → OBSVTOIN 04-09 12:05
PROVIDERS: ADMIT Internal Medicine; ATTEND Internal Medicine
DX: I48.91 Unspecified atrial fibrillation (principal); F10.230 Alcohol dependence with withdrawal, uncomplicated; I44.7 Left bundle-branch block, unspecified; Z79.01 Long term (current) use of anticoagulants; I11.0 Hypertensive heart disease with heart failure; I50.9 Heart failure, unspecified; Z95.0 Presence of cardiac pacemaker; D64.9 Anemia, unspecified; I95.89 Other hypotension; I49.5 Sick sinus syndrome; Z86.711 Personal history of pulmonary embolism; I25.10 Atherosclerotic heart disease of native coronary artery without angina pectoris; I25.2 Old myocardial infarction; E83.42 Hypomagnesemia; R94.31 Abnormal electrocardiogram [ECG] [EKG]
CPT/HCPCS: 36415; 71045-TC-FY; 80048; 80053; 80061; 83735; 84100; 84443; 84484; 85025; 85610; 87635; 93005; 93010; 93306-TC; 99285-25; G0378

== ENCOUNTER 2023-05-31 12:27 | Inpatient (IN) | payer OTHER ==
[2023-05-31 13:14] VITALS: BMI 22.5
[2023-05-31] MEDS ORDERED: DICYCLOMINE HCL 10 MG CAPSULE PO PRN (16:37)
[2023-05-31] MEDS ORDERED: MAGNESIUM HYDROX 2400MG/30ML ORAL SUSPENSION 30 ML CUP PO PRN (16:37)
[2023-05-31] MEDS ORDERED: BENZONATATE 200 MG CAPSULE PO PRN (16:37)
[2023-05-31] MEDS ORDERED: IBUPROFEN 600 MG TABLET (FP) PO PRN (16:37)
[2023-05-31] MEDS ORDERED: BENZOCAINE/MENTHOL (CHLORASEPTIC ) LOZENGE MM PRN (16:37)
[2023-05-31] MEDS ORDERED: NALOXONE HCL (KLOXXADO) 8 MG SPRAY NS PRN (16:37)
[2023-05-31] MEDS ORDERED: BISMUTH SUBSALICYLATE 524 MG/30 ML PO PRN (16:37)
[2023-05-31] MEDS ORDERED: ONDANSETRON *ODT* 4 MG TABLET SL PRN (16:37)
[2023-05-31] MEDS ORDERED: NALOXONE HCL 0.4 MG/ML VIAL IM PRN (16:37)
[2023-05-31] MEDS ORDERED: LOPERAMIDE HCL 2 MG CAPSULE PO PRN (16:37)
[2023-05-31] MEDS ORDERED: MAG HYDROX/AL HYDROX/SIMETH 30 ML UNIT-DOSE CUP PO PRN (16:37)
[2023-05-31] MEDS ORDERED: ACETAMINOPHEN 325 MG TABLET (FP) PO PRN (16:37)
[2023-05-31] MEDS ORDERED: guaiFENesin 600 MG TABLET.ER (FP) PO PRN (16:37)
[2023-05-31] MEDS ORDERED: IBUPROFEN 400 MG TABLET (FP) PO PRN (16:37)
[2023-05-31] MEDS ORDERED: POLYETHYLENE GLYCOL (HEALTHYLAX) 3350 17 GM PACKET PO PRN (16:37)
[2023-05-31] MEDS: NICOTINE 14 MG/24 HOURS TOPICAL PATCH TD SCH (17:27)
[2023-05-31] MEDS: PRENATAL VITAMINS W/ FOLIC ACID TABLET (FP) PO SCH (17:27)
[2023-05-31] MEDS ORDERED: chlordiazePOXIDE HCL 25 MG CAPSULE PO PRN (19:00)
[2023-05-31] MEDS ORDERED: chlordiazePOXIDE HCL 25 MG CAPSULE PO ONE (19:00)
[2023-05-31] MEDS: THIAMINE HCL 100 MG TABLET (FP) PO SCH (22:13)
[2023-05-31] MEDS: chlordiazePOXIDE HCL 25 MG CAPSULE PO SCH (22:15)
[2023-05-31] MEDS: MELATONIN 5 MG TABLETS PO SCH (22:59)
[2023-05-31] MEDS: APIXABAN 5 MG TABLET PO SCH (23:40)
[2023-06-01] MEDS: chlordiazePOXIDE HCL 25 MG CAPSULE PO SCH ×4 (05:35→22:29)
[2023-06-01] MEDS: PRENATAL VITAMINS W/ FOLIC ACID TABLET (FP) PO SCH (10:25)
[2023-06-01] MEDS: APIXABAN 5 MG TABLET PO SCH ×2 (10:25→22:28)
[2023-06-01] MEDS: NICOTINE POLACRILEX 2 MG GUM BUC PRN ×2 (10:26→21:09)
[2023-06-01] MEDS: NICOTINE 14 MG/24 HOURS TOPICAL PATCH TD SCH (10:26)
[2023-06-01] MEDS ORDERED: metoPROLOL SUCCINATE 25 MG TAB.SR.24H (FP) PO SCH (10:45)
[2023-06-01] MEDS ORDERED: LOSARTAN POTASSIUM 25 MG TABLET PO SCH (10:45)
[2023-06-01 11:21] LABS: HEMATOCRIT 35.4 % (35.4-49); HEMOGLOBIN 11.6 GM/dL (11.7-16.9); MCH 31.7 pg (25.7-33.7); MCHC 32.6 g/dl (32.0-35.9); MEAN CELL VOLUME 97.4 fl (80-96); MEAN PLT VOLUME 9.2 fl (7.5-11.1); PLATELET COUNT 221 10^3/uL (134-434); RBC 3.64 M/mm3 (4.00-5.60); RDW 17.6 % (11.9-15.9); WHITE BLOOD COUNT 4.8 K/mm3 (4.0-10.0)
[2023-06-01] MEDS: SPIRONOLACTONE 25 MG TABLET PO SCH (11:21)
[2023-06-01] MEDS: ASPIRIN COATED 81 MG TABLET.EC PO SCH (11:30)
[2023-06-01 11:45] LABS: POTASSIUM 3.7 mmol/L (3.5-5.1)
[2023-06-01] MEDS: SACUBITRIL/VALSARTAN 24 MG-26 MG TABLET PO SCH ×2 (12:08→22:29)
[2023-06-01 12:11] LABS: BLOOD UREA NITROGEN 10.3 mg/dL (7-18)
[2023-06-01 12:14] LABS: ALBUMIN 3.5 g/dl (3.4-5.0); CALCIUM 9.1 mg/dL (8.5-10.1)
[2023-06-01 12:18] LABS: CREATININE 0.8 mg/dL (0.55-1.3)
[2023-06-01 12:19] LABS: BILIRUBIN,TOTAL 0.4 mg/dL (0.2-1)
[2023-06-01 12:20] LABS: TOT PROT 7.1 g/dl (6.4-8.2)
[2023-06-01] MEDS: MELATONIN 5 MG TABLETS PO SCH (22:28)
[2023-06-01] MEDS: THIAMINE HCL 100 MG TABLET (FP) PO SCH (22:28)
[2023-06-01] MEDS: ATORVASTATIN CA 20 MG TABLET (FP) PO SCH (22:28)
[2023-06-02] MEDS: chlordiazePOXIDE HCL 25 MG CAPSULE PO SCH ×4 (05:30→22:27)
[2023-06-02] MEDS: SACUBITRIL/VALSARTAN 24 MG-26 MG TABLET PO SCH ×2 (10:27→22:25)
[2023-06-02] MEDS: PRENATAL VITAMINS W/ FOLIC ACID TABLET (FP) PO SCH (10:27)
[2023-06-02] MEDS: NICOTINE 14 MG/24 HOURS TOPICAL PATCH TD SCH (10:28)
[2023-06-02] MEDS: ASPIRIN COATED 81 MG TABLET.EC PO SCH (10:28)
[2023-06-02] MEDS: APIXABAN 5 MG TABLET PO SCH ×2 (10:28→22:26)
[2023-06-02] MEDS: SPIRONOLACTONE 25 MG TABLET PO SCH (10:28)
[2023-06-02] MEDS: ATORVASTATIN CA 20 MG TABLET (FP) PO SCH (22:25)
[2023-06-02] MEDS: MELATONIN 5 MG TABLETS PO SCH (22:25)
[2023-06-02] MEDS: THIAMINE HCL 100 MG TABLET (FP) PO SCH (22:27)
[2023-06-03] MEDS ORDERED: chlordiazePOXIDE HCL 10 MG CAPSULE PO PRN
[2023-06-03] MEDS: chlordiazePOXIDE HCL 10 MG CAPSULE PO SCH ×3 (05:58→17:34)
[2023-06-03] MEDS: NICOTINE 14 MG/24 HOURS TOPICAL PATCH TD SCH (10:41)
[2023-06-03] MEDS: PRENATAL VITAMINS W/ FOLIC ACID TABLET (FP) PO SCH (10:41)
[2023-06-03] MEDS: SACUBITRIL/VALSARTAN 24 MG-26 MG TABLET PO SCH (10:41)
[2023-06-03] MEDS: APIXABAN 5 MG TABLET PO SCH (10:41)
[2023-06-03] MEDS: ASPIRIN COATED 81 MG TABLET.EC PO SCH (10:41)
[2023-06-03] MEDS: SPIRONOLACTONE 25 MG TABLET PO SCH (10:41)
[2023-06-03 13:12] VITALS: RESP 18; TEMP 98.2
[2023-06-03 17:01] VITALS: BP 120/74; PULSE 62
[2023-06-04] MEDS ORDERED: chlordiazePOXIDE HCL 10 MG CAPSULE PO SCH (05:00)
[2023-06-05] MEDS ORDERED: chlordiazePOXIDE HCL 10 MG CAPSULE PO ONE (05:00)
== END 2023-06-03 19:21 | disposition left against medical advice (07) | DRG 894 ==
LOC: YASAS 12:27 → Y3N 16:55
PROVIDERS: ADMIT Allergy & Immunology; ATTEND Allergy & Immunology
PROC: HZ2ZZZZ Detoxification Services for Substance Abuse Treatment (ICD-10-PCS; principal; 2023-05-31)
DX: F10.230 Alcohol dependence with withdrawal, uncomplicated (principal); E72.20 Disorder of urea cycle metabolism, unspecified; F12.20 Cannabis dependence, uncomplicated; F17.220 Nicotine dependence, chewing tobacco, uncomplicated; F10.282 Alcohol dependence with alcohol-induced sleep disorder; F10.24 Alcohol dependence with alcohol-induced mood disorder; I11.0 Hypertensive heart disease with heart failure; I50.9 Heart failure, unspecified; I48.91 Unspecified atrial fibrillation; R94.31 Abnormal electrocardiogram [ECG] [EKG]; Z79.01 Long term (current) use of anticoagulants; Z95.0 Presence of cardiac pacemaker; Z86.711 Personal history of pulmonary embolism
CPT/HCPCS: 36415; 80053; 85027; 86780; 87635

== ENCOUNTER 2023-06-03 20:33 | Observation (INO) | payer OTHER ==
[2023-06-03 20:39] VITALS: BMI 22.5
[2023-06-03] MEDS ORDERED: ACETAMINOPHEN 325 MG TABLET (FP) ONE (22:36)
[2023-06-03] MEDS ORDERED: ACETAMINOPHEN 500 MG TABLET (FP) PO ONE (22:36)
[2023-06-03] MEDS ORDERED: THIAMINE HCL 200 MG/2 ML VIAL IVPB ONE (23:23)
[2023-06-03] MEDS ORDERED: SODIUM CHLORIDE 0.9% 500 ML INFUS.BAG IV ONE (23:23)
[2023-06-03 23:28] LABS: BASO % 0.9 % (0-2.0); EOS % 0.6 % (0-4.5); HEMATOCRIT 38.2 % (35.4-49); HEMOGLOBIN 12.9 GM/dL (11.7-16.9); LYMPH % 21.2 % (8-40); MCHC 33.9 g/dl (32.0-35.9); MEAN CELL VOLUME 94.6 fl (80-96); MEAN PLT VOLUME 8.7 fl (7.5-11.1); NEUT % 71.3 % (42.8-82.8); PLATELET COUNT 217 10^3/uL (134-434); RBC 4.04 M/mm3 (4.00-5.60); RDW 17.6 % (11.9-15.9); WHITE BLOOD COUNT 9.7 K/mm3 (4.0-10.0)
[2023-06-03] MEDS ORDERED: MULTIVIT INJ. ADULT COMBO WITH VIT K 1 COMBO 10 ML VIAL IV ONE (23:33)
[2023-06-03 23:37] LABS: INR 1.04 (0.83-1.09); PROTHROMBIN TIME (PATIENT) 12.1 SEC (9.7-13.0)
[2023-06-03 23:40] LABS: ACTIVATED PTT 37.9 SECONDS (25.2-36.5)
[2023-06-03 23:47] LABS: CHLORIDE 103 mmol/L (98-107); POTASSIUM 4.5 mmol/L (3.5-5.1); SODIUM 140 mmol/L (136-145)
[2023-06-03 23:50] LABS: CALCIUM 10.4 mg/dL (8.5-10.1)
[2023-06-03 23:51] LABS: ALBUMIN 4.1 g/dl (3.4-5.0); ANION GAP 6 MMOL/L (8-16); BLOOD UREA NITROGEN 14.5 mg/dL (7-18); CO2 30 mmol/L (21-32); GLUCOSE,RANDOM 98 mg/dL (74-106); MAGNESIUM 1.8 mg/dL (1.8-2.4)
[2023-06-03] MEDS ORDERED: THIAMINE HCL 200 MG/2 ML VIAL ONE (23:53)
[2023-06-03 23:54] LABS: CREATININE 0.9 mg/dL (0.55-1.3); SGOT/AST 17 U/L (15-37); SGPT/ALT 24 U/L (13-61)
[2023-06-03 23:56] LABS: BILIRUBIN,TOTAL 0.4 mg/dL (0.2-1); TOT PROT 8.1 g/dl (6.4-8.2)
[2023-06-03 23:57] LABS: ALK PHOS 74 U/L (45-117)
[2023-06-04] MEDS: chlordiazePOXIDE HCL 10 MG CAPSULE PO SCH ×2 (05:19→17:28)
[2023-06-04 06:32] LABS: URINE APPEARANCE CLEAR; URINE BILIRUBIN NEGATIVE (NEGATIVE); URINE COLOR YELLOW; URINE GLUCOSE (UA) NEGATIVE (NEGATIVE); URINE KETONE NEGATIVE (NEGATIVE); URINE LEUK ESTERASE NEGATIVE (NEGATIVE); URINE NITRITE NEGATIVE (NEGATIVE); URINE PROTEIN NEGATIVE (NEGATIVE); URINE UROBILINOGEN 0.2 mg/dL (0.2-1.0)
[2023-06-04 06:45] LABS: METHADONE, UR NEGATIVE (NEGATIVE); OPIATES, URI NEGATIVE (NEGATIVE); PHENCYCLIDINE,URINE NEGATIVE (NEGATIVE)
[2023-06-04 06:55] LABS: COCAINE, UR NEGATIVE (NEGATIVE); URINE AMPHETAMINES NEGATIVE (NEGATIVE); URINE BARBITURATES NEGATIVE (NEGATIVE); URINE BENZODIAZEPINES POSITIVE (NEGATIVE)
[2023-06-04] MEDS: INSULIN SLIDING SCALE (NOVOLOG) 1 VIAL SQ SCH ×4 (08:00→22:45)
[2023-06-04] MEDS ORDERED: THIAMINE HCL 100 MG TABLET (FP) PO SCH (10:00)
[2023-06-04] MEDS ORDERED: MULTIVIT INJ. ADULT COMBO WITH VIT K 1 COMBO 10 ML VIAL IV SCH (10:00)
[2023-06-04] MEDS ORDERED: FOLIC ACID 1 MG TABLET (FP) PO SCH (10:00)
[2023-06-04] MEDS ORDERED: ASPIRIN COATED 81 MG TABLET.EC PO SCH (10:00)
[2023-06-04] MEDS ORDERED: SPIRONOLACTONE 25 MG TABLET PO SCH (10:00)
[2023-06-04] MEDS ORDERED: NICOTINE 7 MG/24 HOURS TOPICAL PATCH TD SCH (10:00)
[2023-06-04] MEDS ORDERED: ASPIRIN COATED 81 MG TABLET.EC ONE (13:49)
[2023-06-04] MEDS ORDERED: THIAMINE HCL 100 MG TABLET (FP) ONE (13:50)
[2023-06-04] MEDS ORDERED: FOLIC ACID 1 MG TABLET (FP) ONE (13:50)
[2023-06-04] MEDS ORDERED: APIXABAN 5 MG TABLET ONE (13:50)
[2023-06-04] MEDS ORDERED: SPIRONOLACTONE 25 MG TABLET ONE (13:51)
[2023-06-04] MEDS ORDERED: metoPROLOL SUCCINATE 25 MG TAB.SR.24H (FP) PO ONE (13:51)
[2023-06-04] MEDS: APIXABAN 5 MG TABLET PO SCH ×2 (17:27→22:41)
[2023-06-04] MEDS ORDERED: NICOTINE 21 MG/24 HOURS TOPICAL PATCH ONE (17:31)
[2023-06-04] MEDS ORDERED: chlordiazePOXIDE 5 MG CAPSULE ONE (17:33)
[2023-06-04] MEDS: SACUBITRIL/VALSARTAN 24 MG-26 MG TABLET PO SCH ×2 (17:44→22:41)
[2023-06-04] MEDS ORDERED: ATORVASTATIN CA 20 MG TABLET (FP) PO SCH (22:00)
[2023-06-05] MEDS ORDERED: ACETAMINOPHEN 325 MG TABLET (FP) PO PRN (04:06)
[2023-06-05] MEDS: chlordiazePOXIDE HCL 10 MG CAPSULE PO SCH (06:01)
[2023-06-05] MEDS: INSULIN SLIDING SCALE (NOVOLOG) 1 VIAL SQ SCH ×3 (08:11→17:11)
[2023-06-05] MEDS ORDERED: APIXABAN 5 MG TABLET PO SCH (10:00)
[2023-06-05] MEDS ORDERED: THIAMINE HCL 100 MG TABLET (FP) PO SCH (10:00)
[2023-06-05] MEDS ORDERED: SPIRONOLACTONE 25 MG TABLET PO SCH (10:00)
[2023-06-05] MEDS ORDERED: NICOTINE 7 MG/24 HOURS TOPICAL PATCH TD SCH (10:00)
[2023-06-05] MEDS ORDERED: SACUBITRIL/VALSARTAN 24 MG-26 MG TABLET PO SCH (10:00)
[2023-06-05] MEDS ORDERED: FOLIC ACID 1 MG TABLET (FP) PO SCH (10:00)
[2023-06-05] MEDS: ASPIRIN COATED 81 MG TABLET.EC PO SCH ×2 (10:28→11:19)
[2023-06-05 12:42] LABS: POTASSIUM 4.2 mmol/L (3.5-5.1)
[2023-06-05 12:44] LABS: BLOOD UREA NITROGEN 15.4 mg/dL (7-18); CALCIUM 9.9 mg/dL (8.5-10.1); MAGNESIUM 1.9 mg/dL (1.8-2.4)
[2023-06-05 12:48] LABS: CREATININE 0.9 mg/dL (0.55-1.3)
[2023-06-05] MEDS ORDERED: NICOTINE POLACRILEX 2 MG GUM BC PRN (15:33)
[2023-06-05 15:43] VITALS: BP 125/78; PULSE 52; RESP 18; TEMP 98.6
[2023-06-05] MEDS ORDERED: INSULIN (NOVOLOG) ASPART 100 UNITS/ML 10ML VIAL ONE (17:16)
[2023-06-05] MEDS ORDERED: ATORVASTATIN CA 20 MG TABLET (FP) PO SCH (22:00)
== END 2023-06-05 19:31 | disposition left against medical advice (07) ==
LOC: JER 20:33 → JERBED 06-04 02:12 → J7W 06-04 17:58
PROVIDERS: ADMIT Internal Medicine; ATTEND Internal Medicine
PROC: 3E0337Z Introduction of Electrolytic and Water Balance Substance into Peripheral Vein, Percutaneous Approach (ICD-10-PCS; principal; 2023-06-04)
PROC: 3E033GC Introduction of Other Therapeutic Substance into Peripheral Vein, Percutaneous Approach (ICD-10-PCS; 2023-06-04)
DX: F10.99 Alcohol use, unspecified with unspecified alcohol-induced disorder (principal); W18.39XA Other fall on same level, initial encounter; Y93.89 Activity, other specified; Y92.410 Unspecified street and highway as the place of occurrence of the external cause; Z29.8 Encounter for other specified prophylactic measures; I48.91 Unspecified atrial fibrillation; Z95.0 Presence of cardiac pacemaker; I44.7 Left bundle-branch block, unspecified; I11.0 Hypertensive heart disease with heart failure; I25.2 Old myocardial infarction; I50.9 Heart failure, unspecified; F12.10 Cannabis abuse, uncomplicated; Z88.8 Allergy status to other drugs, medicaments and biological substances; Z88.5 Allergy status to narcotic agent; F17.200 Nicotine dependence, unspecified, uncomplicated
CPT/HCPCS: 36415; 70450-TC; 71045-TC-FY; 72125-TC; 72170-TC-FY; 80048; 80053; 80307; 81003; 82140; 82962; 83735; 84484; 85025; 85610; 85730; 87086; 93005; 93010; 96374; 99285-25; G0378

== ENCOUNTER 2023-07-11 12:39 | Inpatient (IN) | payer OTHER ==
[2023-07-11 13:09] VITALS: BMI 24.3
[2023-07-11] MEDS ORDERED: BENZOCAINE/MENTHOL (CHLORASEPTIC ) LOZENGE MM PRN (14:09)
[2023-07-11] MEDS ORDERED: BENZONATATE 200 MG CAPSULE PO PRN (14:09)
[2023-07-11] MEDS ORDERED: BISMUTH SUBSALICYLATE 524 MG/30 ML PO PRN (14:09)
[2023-07-11] MEDS ORDERED: IBUPROFEN 600 MG TABLET (FP) PO PRN (14:09)
[2023-07-11] MEDS ORDERED: POLYETHYLENE GLYCOL (HEALTHYLAX) 3350 17 GM PACKET PO PRN (14:09)
[2023-07-11] MEDS ORDERED: IBUPROFEN 400 MG TABLET (FP) PO PRN (14:09)
[2023-07-11] MEDS ORDERED: DICYCLOMINE HCL 10 MG CAPSULE PO PRN (14:09)
[2023-07-11] MEDS ORDERED: NICOTINE POLACRILEX 2 MG GUM BUC PRN (14:09)
[2023-07-11] MEDS ORDERED: NALOXONE HCL (KLOXXADO) 8 MG SPRAY NS PRN (14:09)
[2023-07-11] MEDS ORDERED: MAG HYDROX/AL HYDROX/SIMETH 30 ML UNIT-DOSE CUP PO PRN (14:09)
[2023-07-11] MEDS ORDERED: ONDANSETRON *ODT* 4 MG TABLET SL PRN (14:09)
[2023-07-11] MEDS ORDERED: ACETAMINOPHEN 325 MG TABLET (FP) PO PRN (14:09)
[2023-07-11] MEDS ORDERED: guaiFENesin 600 MG TABLET.ER (FP) PO PRN (14:09)
[2023-07-11] MEDS ORDERED: MAGNESIUM HYDROX 2400MG/30ML ORAL SUSPENSION 30 ML CUP PO PRN (14:09)
[2023-07-11] MEDS ORDERED: LOPERAMIDE HCL 2 MG CAPSULE PO PRN (14:09)
[2023-07-11] MEDS ORDERED: NALOXONE HCL 0.4 MG/ML VIAL IM PRN (14:09)
[2023-07-11] MEDS ORDERED: IBUPROFEN 600 MG TABLET (FP) PO ONE (14:26)
[2023-07-11] MEDS: METHOCARBAMOL 500 MG TABLET PO PRN (22:25)
[2023-07-11] MEDS: ATORVASTATIN CA 20 MG TABLET (FP) PO SCH (22:25)
[2023-07-11] MEDS: APIXABAN 5 MG TABLET PO SCH (22:25)
[2023-07-11] MEDS: hydrOXYzine PAMOATE 25 MG CAPSULE (FP) PO PRN (22:25)
[2023-07-11] MEDS: SACUBITRIL/VALSARTAN 24 MG-26 MG TABLET PO SCH (22:25)
[2023-07-11] MEDS: THIAMINE HCL 100 MG TABLET (FP) PO SCH (22:26)
[2023-07-11] MEDS: MELATONIN 5 MG TABLETS PO SCH (22:26)
[2023-07-12] MEDS: METHOCARBAMOL 500 MG TABLET PO PRN (05:49)
[2023-07-12] MEDS ORDERED: LORazepam 1 MG TABLET PO PRN (08:43)
[2023-07-12] MEDS ORDERED: SPIRONOLACTONE 25 MG TABLET PO SCH (10:00)
[2023-07-12] MEDS ORDERED: ASPIRIN COATED 81 MG TABLET.EC PO SCH (10:00)
[2023-07-12] MEDS: APIXABAN 5 MG TABLET PO SCH ×2 (10:17→22:16)
[2023-07-12] MEDS: hydrOXYzine PAMOATE 25 MG CAPSULE (FP) PO PRN (10:17)
[2023-07-12] MEDS: SACUBITRIL/VALSARTAN 24 MG-26 MG TABLET PO SCH (10:17)
[2023-07-12] MEDS: PRENATAL VITAMINS W/ FOLIC ACID TABLET (FP) PO SCH (10:59)
[2023-07-12] MEDS ORDERED: LORazepam 2 MG TABLET PO SCH (17:00)
[2023-07-12] MEDS: LORazepam 1 MG TABLET PO SCH ×2 (17:09→22:16)
[2023-07-12] MEDS: OFLOXACIN 0.3% OPHTHALMIC SOLUTION 5 ML BOTTLE OD SCH ×2 (17:10→22:18)
[2023-07-12] MEDS: THIAMINE HCL 100 MG TABLET (FP) PO SCH (22:15)
[2023-07-12] MEDS: ATORVASTATIN CA 20 MG TABLET (FP) PO SCH (22:15)
[2023-07-12] MEDS: BACITRACIN 0.9 GM PACKET TP SCH (22:15)
[2023-07-12] MEDS: MELATONIN 5 MG TABLETS PO SCH (22:18)
[2023-07-13] MEDS: LORazepam 1 MG TABLET PO SCH ×4 (05:38→22:28)
[2023-07-13] MEDS: OFLOXACIN 0.3% OPHTHALMIC SOLUTION 5 ML BOTTLE OD SCH ×4 (05:39→22:30)
[2023-07-13] MEDS: PRENATAL VITAMINS W/ FOLIC ACID TABLET (FP) PO SCH (10:17)
[2023-07-13] MEDS: BACITRACIN 0.9 GM PACKET TP SCH ×2 (10:18→22:27)
[2023-07-13] MEDS: METOPROLOL TARTRATE 25 MG TABLET (FP) PO SCH ×2 (10:18→22:28)
[2023-07-13] MEDS: LOSARTAN POTASSIUM 50 MG TABLET PO SCH (10:18)
[2023-07-13] MEDS: APIXABAN 5 MG TABLET PO SCH ×2 (10:18→22:28)
[2023-07-13 10:27] LABS: POTASSIUM 3.9 mmol/L (3.5-5.1)
[2023-07-13 10:30] LABS: CALCIUM 9.4 mg/dL (8.5-10.1)
[2023-07-13 10:31] LABS: ALBUMIN 3.4 g/dl (3.4-5.0); BLOOD UREA NITROGEN 16.3 mg/dL (7-18)
[2023-07-13 10:32] LABS: HEMATOCRIT 36.7 % (35.4-49); HEMOGLOBIN 12.1 GM/dL (11.7-16.9); MCH 31.9 pg (25.7-33.7); MEAN CELL VOLUME 96.7 fl (80-96); MEAN PLT VOLUME 9.3 fl (7.5-11.1); PLATELET COUNT 227 10^3/uL (134-434); RDW 16.6 % (11.9-15.9); WHITE BLOOD COUNT 6.1 K/mm3 (4.0-10.0)
[2023-07-13 10:34] LABS: CREATININE 0.8 mg/dL (0.55-1.3)
[2023-07-13 10:36] LABS: BILIRUBIN,TOTAL 0.3 mg/dL (0.2-1); TOT PROT 6.9 g/dl (6.4-8.2)
[2023-07-13] MEDS: ATORVASTATIN CA 20 MG TABLET (FP) PO SCH (22:28)
[2023-07-13] MEDS: THIAMINE HCL 100 MG TABLET (FP) PO SCH (22:28)
[2023-07-13] MEDS: MELATONIN 5 MG TABLETS PO SCH (22:29)
[2023-07-13] MEDS: METHOCARBAMOL 500 MG TABLET PO PRN (22:30)
[2023-07-14] MEDS: LORazepam 0.5 MG TABLET PO SCH ×4 (05:53→22:30)
[2023-07-14] MEDS: OFLOXACIN 0.3% OPHTHALMIC SOLUTION 5 ML BOTTLE OD SCH ×4 (05:54→22:00)
[2023-07-14] MEDS: hydrOXYzine PAMOATE 25 MG CAPSULE (FP) PO PRN (06:15)
[2023-07-14] MEDS: METHOCARBAMOL 500 MG TABLET PO PRN (06:15)
[2023-07-14] MEDS: APIXABAN 5 MG TABLET PO SCH ×2 (10:38→21:54)
[2023-07-14] MEDS: METOPROLOL TARTRATE 25 MG TABLET (FP) PO SCH (10:38)
[2023-07-14] MEDS: LOSARTAN POTASSIUM 50 MG TABLET PO SCH (10:38)
[2023-07-14] MEDS: BACITRACIN 0.9 GM PACKET TP SCH ×2 (10:38→21:52)
[2023-07-14] MEDS: PRENATAL VITAMINS W/ FOLIC ACID TABLET (FP) PO SCH (10:39)
[2023-07-14] MEDS: THIAMINE HCL 100 MG TABLET (FP) PO SCH (21:52)
[2023-07-14] MEDS: ATORVASTATIN CA 20 MG TABLET (FP) PO SCH (21:54)
[2023-07-14] MEDS: MELATONIN 5 MG TABLETS PO SCH (21:55)
[2023-07-15] MEDS: hydrOXYzine PAMOATE 25 MG CAPSULE (FP) PO PRN ×2 (00:12→22:22)
[2023-07-15] MEDS ORDERED: LORazepam 0.5 MG TABLET PO ONE ×2 (05:00→18:00)
[2023-07-15] MEDS: OFLOXACIN 0.3% OPHTHALMIC SOLUTION 5 ML BOTTLE OD SCH ×4 (05:47→22:22)
[2023-07-15] MEDS ORDERED: metoPROLOL SUCCINATE 25 MG TAB.SR.24H (FP) PO SCH (10:00)
[2023-07-15] MEDS: LOSARTAN POTASSIUM 50 MG TABLET PO SCH (10:36)
[2023-07-15] MEDS: BACITRACIN 0.9 GM PACKET TP SCH ×2 (10:36→22:22)
[2023-07-15] MEDS: PRENATAL VITAMINS W/ FOLIC ACID TABLET (FP) PO SCH (10:36)
[2023-07-15] MEDS: APIXABAN 5 MG TABLET PO SCH ×2 (10:36→22:22)
[2023-07-15 21:19] VITALS: RESP 16
[2023-07-15] MEDS: THIAMINE HCL 100 MG TABLET (FP) PO SCH (22:21)
[2023-07-15] MEDS: ATORVASTATIN CA 20 MG TABLET (FP) PO SCH (22:22)
[2023-07-15] MEDS: MELATONIN 5 MG TABLETS PO SCH (22:22)
[2023-07-15] MEDS: METHOCARBAMOL 500 MG TABLET PO PRN (22:22)
[2023-07-16] MEDS ORDERED: LORazepam 0.5 MG TABLET PO ONE (05:00)
[2023-07-16] MEDS: OFLOXACIN 0.3% OPHTHALMIC SOLUTION 5 ML BOTTLE OD SCH ×2 (05:40→11:02)
[2023-07-16 09:39] VITALS: BP 135/81; PULSE 95; TEMP 98.1
[2023-07-16] MEDS: PRENATAL VITAMINS W/ FOLIC ACID TABLET (FP) PO SCH (11:02)
[2023-07-16] MEDS: LOSARTAN POTASSIUM 50 MG TABLET PO SCH (11:02)
[2023-07-16] MEDS: APIXABAN 5 MG TABLET PO SCH (11:02)
[2023-07-16] MEDS: BACITRACIN 0.9 GM PACKET TP SCH (11:02)
== END 2023-07-16 13:00 | disposition home or self-care (01) | DRG 897 ==
LOC: YASAS 12:39 → Y6N 14:20
PROVIDERS: ADMIT Allergy & Immunology; ATTEND Surgery
PROC: HZ2ZZZZ Detoxification Services for Substance Abuse Treatment (ICD-10-PCS; principal; 2023-07-11)
DX: F10.230 Alcohol dependence with withdrawal, uncomplicated (principal); F17.210 Nicotine dependence, cigarettes, uncomplicated; I10 Essential (primary) hypertension; E78.5 Hyperlipidemia, unspecified; M54.50 Low back pain, unspecified; G89.29 Other chronic pain; Z86.711 Personal history of pulmonary embolism; Z95.0 Presence of cardiac pacemaker; Z79.01 Long term (current) use of anticoagulants; Z86.79 Personal history of other diseases of the circulatory system; Z86.73 Personal history of transient ischemic attack (TIA), and cerebral infarction without residual deficits; Z88.5 Allergy status to narcotic agent
CPT/HCPCS: 36415; 80053; 85027; 86780; 87635